=== PATIENT | female | born 1980 | race Caucasian/White ===

== ENCOUNTER 2016-11-07 22:23 | Observation (INO) | payer OTHER ==
[2016-11-07] MEDS ORDERED: RX INFO: IV CONTRAST WAS GIVEN 1 EACH MISC MISCELLANE PRN (22:27)
[2016-11-07] MEDS ORDERED: SODIUM CHLORIDE 0.9% 1,000 ML IV STA (22:27)
[2016-11-07] MEDS ORDERED: DEXAMETHASONE SOD PHOSPHATE 10 MG/ML 1 ML VIAL IV STA (22:31)
[2016-11-07] MEDS ORDERED: METOCLOPRAMIDE 5 MG/ML 2 ML VIAL IVP STA (22:31)
[2016-11-07] MEDS ORDERED: MAGNESIUM SULFATE-D5W PMX 1 GM in DEXTROSE/WATER 1 100ML.BAG IVPB ONE (22:32)
[2016-11-07 22:43] LABS: Glucose,Whole Blood 86 mg/dL (75-99)
--- NOTE | 2016-11-07 22:46 | CT ---
EXAM: CT Head Without Intravenous Contrast CLINICAL HISTORY: Reason: STROKE TECHNIQUE: Axial computed tomography images of the head/brain without intravenous contrast. CTDI is 60.3 mGy and DLP is 1037.4 mGy-cm. This CT exam was performed using one or more of the following dose reduction techniques: automated exposure control, adjustment of the mA and/or kV according to patient size, and/or use of iterative reconstruction technique. COMPARISON: No relevant prior studies available. FINDINGS: Brain: Stable 10 mm focus of hypoattenuation in the left parietal lobe. Ventricles: Unremarkable. No ventriculomegaly. Bones/joints: Unremarkable. No acute fracture. Soft tissues: Unremarkable. Sinuses: Unremarkable as visualized. No acute sinusitis. Mastoid air cells: Unremarkable. IMPRESSION: No acute intracranial abnormality.
--- NOTE | 2016-11-07 22:57 | ED ---
Neuro HPI - General Chief Complaint: Neuro Symptoms/Deficit Stated Complaint: Stroke Time Seen by Provider: 11/07/16 22:27 Source: patient, EMS Mode of arrival: EMS Limitations: no limitations - History of Present Illness Is the patient presenting with stroke symptoms?: Yes Initial Comments: This 36-year-old white female presents with right-sided weakness. She has complete paralysis of her right upper extremity and almost complete paralysis of her right lower extremity. This occurred at approximately 8:30 PM tonight. She also states that she has had a headache all day. She does have a history of migraine headaches but states that this one is more severe than her previous migraines. It is worse in the frontal region and seems to radiate into the right anterior neck. She also has a history of atypical migraine headaches with right-sided paralysis. She has a history of seizures as well but denies any seizures today. She denies any fevers or chills. She is relating difficulty in getting her words out and has a slow speech. No other complaints or modifying factors. - Related Data Home Medications: Home Medications Medication Instructions Recorded Confirmed levETIRAcetam [Keppra] 1,000 mg PO Q12H 02/10/15 03/01/16 Butalb/APAP/Caff 50-325-40Mg 1 tab PO TID PRN 01/17/16 03/01/16 [Fioricet 50-325-40] diphenhydrAMINE HCL [Benadryl] 25 mg PO HS PRN 01/17/16 03/01/16 Baclofen [Lioresal] 20 mg PO BID 03/01/16 03/01/16 Dicyclomine [Bentyl] 20 mg PO TID PRN 03/01/16 03/01/16 Divalproex [Depakote] 500 mg PO BID 03/01/16 03/01/16 Docusate [Colace] 100 mg PO DAILY PRN 03/01/16 03/01/16 Ergocalciferol [Vitamin D2] 50,000 unit PO Q7D 03/01/16 03/01/16 Hyoscyamine Sulfate [Levsin] 0.125 mg PO Q4H PRN 03/01/16 03/01/16 LORazepam [Ativan] 1 mg PO DAILY PRN 03/01/16 03/01/16 Nortriptyline HCl [Pamelor] 10 mg PO HS 03/01/16 03/01/16 clonazePAM [KlonoPIN] 1 mg PO BID 03/01/16 03/01/16 Allergies/Adverse Reactions: Allergies Allergy/AdvReac Type Severity Reaction Status Date / Time Gadolinium-Containing Allergy Unknown Verified 11/07/16 22:48 Contrast Medi latex Allergy Unknown Verified 11/07/16 22:41 prochlorperazine Allergy Unknown Verified 11/07/16 22:41 [From Compazine] aspirin AdvReac Unknown Verified 11/07/16 22:41 naproxen AdvReac Unknown Verified 11/07/16 22:41 Review of Systems ROS Statement: Those systems with pertinent positive or pertinent negative responses have been documented in the HPI. ROS Other: All systems not noted in ROS Statement are negative. General Exam - General Exam Comments Initial Comments: GENERAL: The patient is well nourished and well hydrated. VITAL SIGNS: Heart rate, blood pressure, respiratory rate reviewed as recorded in nurse's notes. EYES: Pupils are round and reactive. Extraocular movements are intact. No conjunctival / lid redness or swelling. There is some ptosis on the right eye. ENT: No external evidence of injury, swelling, or ecchymosis. Airway is patent. Throat is clear. NECK: Nontender. No swelling or evidence of injury. No subcutaneous emphysema. Trachea is midline. No thyroid mass. HEART: Regular rate and rhythm. Good peripheral pulses. LUNGS/CHEST: Breath sounds clear and equal bilaterally. No rales, rhonchi, or wheezes. No ecchymosis, subcutaneous emphysema, or tenderness. ABDOMEN: Abdomen soft without tenderness. No palpable masses or organomegaly. No peritoneal signs. No abdominal wall swelling or ecchymosis. EXTREMITIES: No extremity tenderness. She is in a right leg brace from previous dropped foot and subsequent surgeries. No thoracolumbar tenderness. NEUROLOGIC: Sensation is decreased on the right side for both the upper extremity and lower extremity. She has complete paralysis of her right upper extremity and almost complete paralysis of her throat for her right lower extremity. Her strength is intact on the left side. Speech seems very labored and slow. She may have a slight right facial droop. SKIN: No abrasions or ecchymosis is noted. No induration or masses noted. PSYCHIATRIC: Alert and oriented. Appears anxious initially. Limitations: no limitations Stroke [facility] - Lab Data Result diagrams: 11/07/16 22:45 11/07/16 22:45 Lab Results 11/07/16 11/07/16 11/07/16 Range/Units 22:42 22:45 22:45 WBC 7.2 (3.8-10.6) k/uL RBC 4.12 (3.80-5.40) m/uL Hgb 13.1 (11.4-16.0) gm/dL Hct 39.2 (34.0-46.0) % MCV 95.2 (80.0-100.0) fL MCH 31.7 (25.0-35.0) pg MCHC 33.3 (31.0-37.0) g/dL RDW 13.5 (11.5-15.5) % Plt Count 271 (150-450) k/uL Neutrophils % 62 % Lymphocytes % 28 % Monocytes % 6 % Eosinophils % 2 % Basophils % 1 % Neutrophils # 4.5 (1.3-7.7) k/uL Lymphocytes # 2.0 (1.0-4.8) k/uL Monocytes # 0.4 (0-1.0) k/uL Eosinophils # 0.1 (0-0.7) k/uL Basophils # 0.1 (0-0.2) k/uL PT (9.0-12.0) sec INR (<1.2) APTT (22.0-30.0) sec Sodium (137-145) mmol/L Potassium (3.5-5.1) mmol/L Chloride (98-107) mmol/L Carbon Dioxide (22-30) mmol/L Anion Gap mmol/L BUN (7-17) mg/dL Creatinine (0.52-1.04) mg/dL Est GFR (MDRD) Af Amer (>60 ml/min/1.73 sqM) Est GFR (MDRD) Non-Af (>60 ml/min/1.73 sqM) Glucose (74-99) mg/dL POC Glucose (mg/dL) 86 (75-99) mg/dL POC Glu Post Manager ID Dunsmore, Debby Calcium (8.4-10.2) mg/dL Total Bilirubin (0.2-1.3) mg/dL AST (14-36) U/L ALT (9-52) U/L Alkaline Phosphatase (38-126) U/L Total Creatine Kinase 100 (30-135) U/L CK-MB (CK-2) 0.5 (0.0-2.4) ng/mL CK-MB (CK-2) Rel Index 0.5 Troponin I <0.012 (0.000-0.034) ng/mL Total Protein (6.3-8.2) g/dL Albumin (3.5-5.0) g/dL Valproic Acid ug/mL 11/07/16 11/07/16 Range/Units 22:45 22:45 WBC (3.8-10.6) k/uL RBC (3.80-5.40) m/uL Hgb (11.4-16.0) gm/dL Hct (34.0-46.0) % MCV (80.0-100.0) fL MCH (25.0-35.0) pg MCHC (31.0-37.0) g/dL RDW (11.5-15.5) % Plt Count (150-450) k/uL Neutrophils % % Lymphocytes % % Monocytes % % Eosinophils % % Basophils % % Neutrophils # (1.3-7.7) k/uL Lymphocytes # (1.0-4.8) k/uL Monocytes # (0-1.0) k/uL Eosinophils # (0-0.7) k/uL Basophils # (0-0.2) k/uL PT 10.4 (9.0-12.0) sec INR 1.0 (<1.2) APTT 22.7 (22.0-30.0) sec Sodium 141 (137-145) mmol/L Potassium 4.0 (3.5-5.1) mmol/L Chloride 107 (98-107) mmol/L Carbon Dioxide 25 (22-30) mmol/L Anion Gap 9 mmol/L BUN 7 (7-17) mg/dL Creatinine 0.70 (0.52-1.04) mg/dL Est GFR (MDRD) Af Amer >60 (>60 ml/min/1.73 sqM) Est GFR (MDRD) Non-Af >60 (>60 ml/min/1.73 sqM) Glucose 75 (74-99) mg/dL POC Glucose (mg/dL) (75-99) mg/dL POC Glu Post Manager ID Calcium 9.2 (8.4-10.2) mg/dL Total Bilirubin 0.2 (0.2-1.3) mg/dL AST 22 (14-36) U/L ALT 36 (9-52) U/L Alkaline Phosphatase 76 (38-126) U/L Total Creatine Kinase (30-135) U/L CK-MB (CK-2) (0.0-2.4) ng/mL CK-MB (CK-2) Rel Index Troponin I (0.000-0.034) ng/mL Total Protein 5.9 L (6.3-8.2) g/dL Albumin 3.6 (3.5-5.0) g/dL Valproic Acid 18.9 ug/mL - Medical Decision Making The patient was seen and examined. All diagnostics were reviewed. The EKG shows a sinus bradycardia at a rate of 58. There is no acute ST-T wave changes identified. The ME interval is 120, QRS duration is 84, and the QTc interval is 394. The patient immediately went to CT. She had a CT of the brain without contrast as well as a CT angiogram of the head and neck. This was negative for any acute process per radiology. The laboratory was fairly unremarkable except for a subtherapeutic Depakote level. She did receive IV fluids as well as some Decadron, magnesium, and Reglan. She is sleeping on recheck and is in no significant distress. On reexamination she does have good movement of her right leg and significantly increased movement of her right arm and hand. She is still having some ptosis of the right eye. Her speech seems to have improved a fair amount as well. The case is discussed with the interventional neurologist Dr. Cai shortly after patient arrival and again after the CTs are done. He does not recommend any intervention or TPA at this time and recommends medical management. Old records were reviewed and it appears that she has had an atypical migraine before with similar symptoms. She's been hospitalized for this on a couple of occasions. It is felt as though she would benefit from hospitalization once again as her paralysis has not completely resolved. She is agreeable. Case will be discussed with internal medicine and patient will be admitted for further treatment. Past Medical History Past Medical History: Blood Disorder, CVA/TIA, Seizure Disorder Additional Past Medical History / Comment(s): migraines, IBS, IBD History of Any Multi-Drug Resistant Organisms: MRSA Date of last positivie culture/infection: 2005 MDRO Source:: leg Past Surgical History: Adenoidectomy, Hysterectomy Additional Past Surgical History / Comment(s): several abd sx(exp lap-cyst removed from ovaries, kidney , from intestinal wall. OCCIPITAL NERVE BLOCK, RT KNEE MENISCUS REPAIR AND CARTILAGE REMOVED Past Anesthesia/Blood Transfusion Reactions: Postoperative Nausea & Vomiting ( PONV) Past Psychological History: Anxiety, PTSD Smoking Status: Unknown if ever smoked Past Alcohol Use History: Rare Past Drug Use History: None Reported - Past Family History Father Additional Family Medical History / Comment(s): LUPUS, FATHERS MOM, AUNT HAD LUPUS Mother Family Medical History: Osteoarthritis (OA), Thyroid Disorder Additional Family Medical History / Comment(s): GOITER, BOARDERLINE DIABETIC, KIDNEY STONE,GALLSTONES Course Vital Signs 11/07/16 11/07/16 11/07/16 22:38 22:57 23:11 Temperature 98.4 F Pulse Rate 68 66 72 Respiratory 24 24 20 Rate Blood Pressure 125/81 118/75 118/79 O2 Sat by Pulse 99 96 95 Oximetry 11/07/16 23:39 Temperature Pulse Rate 69 Respiratory 20 Rate Blood Pressure 111/70 O2 Sat by Pulse 96 Oximetry Disposition Clinical Impression: Right sided weakness, Headache, Atypical migraine, Hemiplegic migraine, History of stroke Disposition: ADMITTED IP TO THIS [facility] Condition: Fair Time of Disposition: 00:24 Decision Date: 11/08/16 Decision Time: 00:24
[2016-11-07 22:59] LABS: Basophils # (A) 0.1 k/uL (0-0.2); Basophils % (A) 1 %; CH 31.9; CHCM 33.7; Eosinophils # (A) 0.1 k/uL (0-0.7); Eosinophils % (A) 2 %; HCT 39.2 % (34.0-46.0); HDW 2.11; HGB 13.1 gm/dL (11.4-16.0); Luc # (Auto) 0.15; Luc % (Auto) 2; Lymphocytes % (A) 28 %; MCH 31.7 pg (25.0-35.0); MCHC 33.3 g/dL (31.0-37.0); MCV 95.2 fL (80.0-100.0); Monocytes # (A) 0.4 k/uL (0-1.0); Monocytes % (A) 6 %; Neutrophils # (A) 4.5 k/uL (1.3-7.7); Neutrophils % (A) 62 %; RBC 4.12 m/uL (3.80-5.40); RDW 13.5 % (11.5-15.5); WBC 7.2 k/uL (3.8-10.6); WBC (Perox) 7.05
--- NOTE | 2016-11-07 23:01 | CT ---
EXAM: CT Angiography Head With Intravenous Contrast CLINICAL HISTORY: Reason: Neuro Deficits TECHNIQUE: Axial computed tomographic angiography images of the head with intravenous contrast using CT angiography protocol. CTDI is 6.5, 72.3, 4. 8 mGy and DLP is 199.2 mGy-cm. This CT exam was performed using one or more of the following dose reduction techniques: automated exposure control, adjustment of the mA and/or kV according to patient size, and/or use of iterative reconstruction technique. MIP reconstructed images were created and reviewed. COMPARISON: No relevant prior studies available. FINDINGS: Right internal carotid artery: No acute findings. Right anterior cerebral artery: Unremarkable. No occlusion or significant stenosis. No aneurysm. Right middle cerebral artery: Unremarkable. No occlusion or significant stenosis. No aneurysm. Right posterior cerebral artery: Unremarkable. No occlusion or significant stenosis. No aneurysm. Right vertebral artery: Unremarkable as visualized. Left internal carotid artery: No acute findings. Left anterior cerebral artery: Unremarkable. No occlusion or significant stenosis. No aneurysm. Left middle cerebral artery: Unremarkable. No occlusion or significant stenosis. No aneurysm. Left posterior cerebral artery: Unremarkable. No occlusion or significant stenosis. No aneurysm. Left vertebral artery: Unremarkable as visualized. Basilar artery: Unremarkable. No occlusion or significant stenosis. No aneurysm. IMPRESSION: Unremarkable CTA of the head. EXAM: CT Angiography Neck With Intravenous Contrast CLINICAL HISTORY: Reason: Neuro Deficits TECHNIQUE: Axial computed tomographic angiography images of the neck with intravenous contrast using CT angiography protocol. CTDI is 6.5, 72.3, 4. 8 mGy and DLP is 199.2 mGy-cm. This CT exam was performed using one or more of the following dose reduction techniques: automated exposure control, adjustment of the mA and/or kV according to patient size, and/or use of iterative reconstruction technique. MIP reconstructed images were created and reviewed. COMPARISON: No relevant prior studies available. FINDINGS: Artifacts: Inhomogeneous enhancement of the superior vena cava is favored to represent admixture artifact. VASCULATURE: Right common carotid artery: Unremarkable. No significant stenosis. No dissection or occlusion. Right internal carotid artery: Unremarkable. Extracranial segment is patent with no significant stenosis. No dissection or occlusion. Right external carotid artery: Unremarkable. No occlusion. Right vertebral artery: Unremarkable. No significant stenosis. No dissection or occlusion. Left common carotid artery: Unremarkable. No significant stenosis. No dissection or occlusion. Left internal carotid artery: Unremarkable. Extracranial segment is patent with no significant stenosis. No dissection or occlusion. Left external carotid artery: Unremarkable. No occlusion. Left vertebral artery: Unremarkable. No significant stenosis. No dissection or occlusion. NECK: Bones/joints: No acute fracture. Soft tissues: Unremarkable as visualized. No mass. CAROTID STENOSIS REFERENCE USING NASCET CRITERIA: % ICA stenosis = (1 - narrowest ICA diameter/diameter of distal cervical ICA) x 100. Mild - <50% stenosis. Moderate - 50-69% stenosis. Severe - 70-94% stenosis. Near occlusion - 95-99% stenosis. Occluded - 100% stenosis. IMPRESSION: Unremarkable CTA of the neck.
[2016-11-07 23:08] LABS: ALT 36 U/L (9-52); AST 22 U/L (14-36); Alkaline Phosphatase 76 U/L (38-126); Anion Gap 9 mmol/L; Blood Urea Nitrogen 7 mg/dL (7-17); Calcium 9.2 mg/dL (8.4-10.2); Carbon Dioxide 25 mmol/L (22-30); Chloride 107 mmol/L (98-107); Glucose 75 mg/dL (74-99); Non-African American GFR(MDRD) >60 (>60 ml/min/1.73 sqM); Sodium 141 mmol/L (137-145); Total Bilirubin 0.2 mg/dL (0.2-1.3); Total Protein 5.9 g/dL (6.3-8.2)
[2016-11-07 23:09] LABS: Partial Thromboplastin Time 22.7 sec (22.0-30.0); Prothrombin Time 10.4 sec (9.0-12.0)
[2016-11-07 23:17] LABS: Creatine Kinase 100 U/L (30-135)
--- NOTE | 2016-11-07 23:27 | XR ---
EXAM: XR Chest, 1 View CLINICAL HISTORY: Reason: weakness TECHNIQUE: Frontal view of the chest. COMPARISON: 01/21/2016 FINDINGS: Lungs: Unremarkable. No consolidation. Pleural space: Unremarkable. No pneumothorax. Heart: Unremarkable. No cardiomegaly. Mediastinum: Unremarkable. Bones/joints: No acute osseous abnormality. IMPRESSION: No acute cardiopulmonary process.
[2016-11-07 23:30] LABS: Creatine Kinase MB 0.5 ng/mL (0.0-2.4); Troponin I <0.012 ng/mL (0.000-0.034)
[2016-11-07] MEDS ORDERED: DIVALPROEX ER 500 MG TAB.ER.24H PO STA (23:57)
[2016-11-08] MEDS ORDERED: NALOXONE 0.4 MG/ML 1 ML VIAL IV PRN (00:25)
[2016-11-08] MEDS ORDERED: ACETAMINOPHEN TAB 325 MG TAB PO PRN (00:25)
[2016-11-08] MEDS ORDERED: SUMAtriptan SUCCINATE 6 MG/0.5 ML VIAL SQ PRN (00:29)
[2016-11-08] MEDS ORDERED: SUMAtriptan SUCCINATE 6 MG/0.5 ML VIAL SQ STA ×2 (00:31)
[2016-11-08] MEDS ORDERED: DICYCLOMINE 20 MG TAB PO PRN (01:10)
[2016-11-08] MEDS ORDERED: levETIRAcetam 500 MG TAB PO SCH (01:15)
[2016-11-08] MEDS: BUTALB/APAP/CAFF 50-325-40MG TAB PO PRN ×2 (01:58→12:03)
[2016-11-08 02:21] VITALS: BMI 20.5
[2016-11-08] MEDS: clonazePAM 1 MG TAB PO SCH ×3 (03:40→21:28)
[2016-11-08] MEDS: HYDROmorphone 1 MG/ML 1 ML SYRINGE IVP PRN ×5 (03:40→20:46)
[2016-11-08] MEDS: METOCLOPRAMIDE 5 MG/ML 2 ML VIAL IVP PRN ×3 (04:21→18:15)
[2016-11-08] MEDS: diphenhydrAMINE 25 MG CAP PO PRN ×2 (04:34→22:38)
[2016-11-08] MEDS: levETIRAcetam 500 MG TAB PO SCH ×2 (08:36→21:29)
[2016-11-08] MEDS: BACLOFEN 10 MG TAB PO SCH ×2 (08:36→21:27)
[2016-11-08] MEDS ORDERED: DIVALPROEX 500 MG TABLET.DR PO SCH (09:00)
[2016-11-08] MEDS ORDERED: clonazePAM 1 MG TAB PO SCH (09:00)
[2016-11-08] MEDS: PANTOPRAZOLE 40 MG/10 ML VIAL IV SCH (12:03)
[2016-11-08] MEDS: ENOXAPARIN 40 MG/0.4 ML SYRINGE SQ SCH (12:05)
--- NOTE | 2016-11-08 17:45 | P.HPIM ---
History of Present Illness H&P Date: 11/08/16 Patient is a 36-year-old white female who presented with right-sided weakness. She had complete paralysis of her right upper extremity and almost complete paralysis of her right lower extremity on presentation to emergency room. This occurred at approximately 8:30 PM last night. She also states that she has had a headache all day. She does have a history of migraine headaches but states that this one is more severe than her previous migraines. It is worse in the frontal region and seems to radiate into the right anterior neck. She also has a history of atypical migraine headaches with right-sided paralysis. She has a history of seizures as well but denies any seizures today. She denies any fevers or chills. She is relating difficulty in getting her words out and has a slow speech. No other complaints or modifying factors. In the emergency room patient was given Imitrex however she states that she had a reaction to the and it caused her to have itching and tingling in her skin she does not want to take Imitrex anymore. She was also started on Dilauded 0.5 mg IV every 3 hours when necessary and she stated that this is helping her headache. She was also continued on Fioricet but she stated that that is hardly doing anything for her headache. At this time her right sided weakness has improved significantly she is still complaining of severe headache. Past Medical History Past Medical History: Blood Disorder, CVA/TIA, Seizure Disorder Additional Past Medical History / Comment(s): migraines, IBS, IBD History of Any Multi-Drug Resistant Organisms: MRSA Date of last positivie culture/infection: 2005 MDRO Source:: leg Past Surgical History: Adenoidectomy, Hysterectomy Additional Past Surgical History / Comment(s): several abd sx(exp lap-cyst removed from ovaries, kidney , from intestinal wall. OCCIPITAL NERVE BLOCK, RT KNEE MENISCUS REPAIR AND CARTILAGE REMOVED Past Anesthesia/Blood Transfusion Reactions: Postoperative Nausea & Vomiting ( PONV) Past Psychological History: Anxiety, PTSD Smoking Status: Unknown if ever smoked Past Alcohol Use History: Rare Past Drug Use History: None Reported - Past Family History Father Additional Family Medical History / Comment(s): LUPUS, FATHERS MOM, AUNT HAD LUPUS Mother Family Medical History: Osteoarthritis (OA), Thyroid Disorder Additional Family Medical History / Comment(s): GOITER, BOARDERLINE DIABETIC, KIDNEY STONE,GALLSTONES Medications and Allergies Home Medications Medication Instructions Recorded Confirmed Type levETIRAcetam [Keppra] 1,000 mg PO Q12H 02/10/15 11/08/16 History Butalb/APAP/Caff 50-325-40Mg 1 tab PO TID PRN 01/17/16 11/08/16 History [Fioricet 50-325-40] diphenhydrAMINE HCL [Benadryl] 25 mg PO HS PRN 01/17/16 11/08/16 History Baclofen [Lioresal] 20 mg PO BID 03/01/16 11/08/16 History Dicyclomine [Bentyl] 20 mg PO TID PRN 03/01/16 11/08/16 History Divalproex [Depakote] 500 mg PO BID 03/01/16 11/08/16 History Ergocalciferol [Vitamin D2] 50,000 unit PO Q7D 03/01/16 11/08/16 History clonazePAM [KlonoPIN] 1 mg PO BID 03/01/16 11/08/16 History Docusate [Colace] 100 mg PO DAILY PRN 11/08/16 11/08/16 History Allergies Allergy/AdvReac Type Severity Reaction Status Date / Time Gadolinium-Containing Allergy Unknown Verified 11/07/16 22:48 Contrast Medi latex Allergy Unknown Verified 11/07/16 22:41 prochlorperazine Allergy Unknown Verified 11/07/16 22:41 [From Compazine] aspirin AdvReac Unknown Verified 11/07/16 22:41 naproxen AdvReac Unknown Verified 11/07/16 22:41 Physical Exam Vitals: Vital Signs Temp Pulse Pulse Resp BP BP Pulse Ox 11/08/16 14:48 98.6 F 74 16 105/59 96 11/08/16 08:50 106/71 11/08/16 06:55 97.9 F 69 16 97/53 98 11/08/16 01:50 97.5 F L 98 16 116/81 11/08/16 00:26 71 16 101/60 97 11/07/16 23:39 69 20 111/70 96 11/07/16 23:11 72 20 118/79 95 11/07/16 22:57 66 24 118/75 96 11/07/16 22:38 98.4 F 68 24 125/81 99 Intake and Output 11/08/16 11/08/16 11/08/16 06:59 14:59 22:59 Intake Total 480 Balance 480 Intake: Oral 480 Other: # Voids 2 1 Weight 54.431 kg In general patient is alert and oriented 3 in no apparent distress HEENT head normocephalic and atraumatic Neck is supple no JVD no goiter no lymphadenopathy Chest exam reveals a few scattered rhonchi no wheezing Cardiac exam reveals regular heart sounds no gallops no murmurs Abdomen is soft nontender no organomegaly with normal bowel sounds Extremity exam reveals no edema no cyanosis or clubbing there is a brace on the right lower extremity from previous foot drop Neurological examination reveals minimal facial drooping on the right side at this time with the weakness involving the right upper extremity and right lower extremity 4 out of 5 as compared to the left Results CBC & Chem 7: 11/07/16 22:45 11/07/16 22:45 Labs: Abnormal Lab Results - Last 24 Hours (Table) 11/07/16 Range/Units 22:45 Total Protein 5.9 L (6.3-8.2) g/dL Thrombosis Risk Factor Assmnt - Choose All That Apply Other Risk Factors: Yes Each Risk Factor Represents 3 Points: Positive Factor V Leiden Thrombosis Risk Factor Assessment Total Risk Factor Score: 3 Thrombosis Risk Factor Assessment Level: Moderate Risk Assessment and Plan Plan: #1 severe migraine headache, continue was dialogue and and Fioricet consult neurology #2 right sided weakness improving likely related to migraine headache, test done in the emergency room were reviewed awaiting neurology input #3 episodes of palpitation and dizziness at this time will proceed was telemetry will check echocardiogram and consult cardiology #4 tobacco abuse patient was counseled to quit smoking at this time she will have nicotine patch 14 g change daily #5 underlying history of anxiety and posttraumatic stress disorder maintained on Klonopin continue Medication and labs were reviewed plan as above will recheck in a.m.
[2016-11-08] MEDS: NICOTINE 14MG/24HR PATCH TRANSDERM SCH (18:14)
[2016-11-08] MEDS ORDERED: MAGNESIUM SULFATE-D5W PMX 1 GM in DEXTROSE/WATER 1 100ML.BAG IVPB ONE (21:00)
[2016-11-08] MEDS: LACOSAMIDE 50 MG TABLET PO SCH (21:27)
[2016-11-08] MEDS: METOCLOPRAMIDE 5 MG/ML 2 ML VIAL IVP SCH (22:29)
[2016-11-09] MEDS: clonazePAM 1 MG TAB PO SCH ×4 (00:13→21:42)
[2016-11-09] MEDS: VALPROATE SODIUM 250 MG in SODIUM CHLORIDE 0.9% 50 ML IVPB SCH ×3 (01:02→16:50)
[2016-11-09] MEDS: METOCLOPRAMIDE 5 MG/ML 2 ML VIAL IVP SCH ×4 (05:05→22:20)
[2016-11-09] MEDS: HYDROmorphone 1 MG/ML 1 ML SYRINGE IVP PRN ×5 (05:12→19:57)
[2016-11-09 07:14] LABS: Basophils % (A) 0 %; CH 30.4; CHCM 32.2; Eosinophils % (A) 0 %; HCT 38.9 % (34.0-46.0); HDW 2.11; HGB 13.1 gm/dL (11.4-16.0); Luc # (Auto) 0.04; Luc % (Auto) 1; Lymphocytes # (A) 0.7 k/uL (1.0-4.8); Lymphocytes % (A) 11 %; MCH 31.8 pg (25.0-35.0); MCHC 33.5 g/dL (31.0-37.0); MCV 94.8 fL (80.0-100.0); Mean Platelet Volume 8.5; Monocytes # (A) 0.1 k/uL (0-1.0); Monocytes % (A) 1 %; Neutrophils # (A) 5.9 k/uL (1.3-7.7); Neutrophils % (A) 87 %; RBC 4.11 m/uL (3.80-5.40); RDW 12.7 % (11.5-15.5); WBC 6.8 k/uL (3.8-10.6); WBC (Perox) 7.39
[2016-11-09 07:35] LABS: ALT 32 U/L (9-52); AST 22 U/L (14-36); Alkaline Phosphatase 64 U/L (38-126); Anion Gap 12 mmol/L; Blood Urea Nitrogen 4 mg/dL (7-17); Calcium 8.9 mg/dL (8.4-10.2); Carbon Dioxide 21 mmol/L (22-30); Chloride 110 mmol/L (98-107); Glucose 116 mg/dL (74-99); Non-African American GFR(MDRD) >60 (>60 ml/min/1.73 sqM); Potassium 4.3 mmol/L (3.5-5.1); Sodium 143 mmol/L (137-145); Total Bilirubin 0.2 mg/dL (0.2-1.3); Total Protein 5.8 g/dL (6.3-8.2)
[2016-11-09] MEDS: PANTOPRAZOLE 40 MG/10 ML VIAL IV SCH (08:43)
[2016-11-09] MEDS: ENOXAPARIN 40 MG/0.4 ML SYRINGE SQ SCH (08:43)
[2016-11-09] MEDS: LACOSAMIDE 50 MG TABLET PO SCH ×2 (08:49→20:19)
[2016-11-09] MEDS: levETIRAcetam 500 MG TAB PO SCH ×2 (08:49→20:16)
[2016-11-09] MEDS: BACLOFEN 10 MG TAB PO SCH ×2 (08:49→20:15)
[2016-11-09] MEDS: NICOTINE 14MG/24HR PATCH TRANSDERM SCH (09:56)
[2016-11-09] MEDS: BUTALB/APAP/CAFF 50-325-40MG TAB PO PRN ×2 (10:01→21:50)
--- NOTE | 2016-11-09 10:28 | ECHOF ---
Referral Reason:palpitations, dizzy MEASUREMENTS -------- HEIGHT: 162.6 cm WEIGHT: 54.0 kg BP: 108/74 RVIDd: 2.2 cm (< 3.3) IVSd: 0.8 cm (0.6 - 1.1) LVIDd: 3.9 cm (3.9 - 5.3) LVPWd: 0.8 cm (0.6 - 1.1) IVSs: 1.1 cm LVIDs: 2.6 cm LVPWs: 1.4 cm LA Diam: 2.5 cm (2.7 - 3.8) LAESV Index (A-L): 18.02 ml/m Ao Diam: 3.1 cm (2.0 - 3.7) AV Cusp: 2.4 cm (1.5 - 2.6) MV EXCURSION: 17.440 mm (> 18.000) MV EF SLOPE: 121 mm/s (70 - 150) EPSS: 0.3 cm MV E Jasper: 0.95 m/s MV DecT: 195 ms MV A Jasper: 0.58 m/s MV E/A Ratio: 1.64 RAP: 5.00 mmHg RVSP: 12.99 mmHg FINDINGS -------- Sinus rhythm. This was a technically good study. The left ventricular size is normal. Left ventricular wall thickness is normal. Overall left ventricular systolic function is normal with, an EF between 60 - 65 %. The right ventricle is normal in size. Normal LA size by volume 22+/-6 ml/m2. The right atrium is normal in size. The aortic valve is trileaflet and appears structurally normal. The mitral valve is normal. Trace tricuspid regurgitation present. Right ventricular systolic pressure is normal at < 35 mmHg. Trace/mild (physiologic) pulmonic regurgitation. The aortic root size is normal. The inferior vena cava is mildly dilated. There is no pericardial effusion. CONCLUSIONS -------- 1. Sinus rhythm. 2. The mitral valve is normal. 3. Trace tricuspid regurgitation present. 4. Right ventricular systolic pressure is normal at < 35 mmHg. 5. Trace/mild (physiologic) pulmonic regurgitation. 6. The aortic root size is normal. 7. The inferior vena cava is mildly dilated. 8. There is no pericardial effusion. 9. This was a technically good study. 10. The left ventricular size is normal. 11. Left ventricular wall thickness is normal. 12. Overall left ventricular systolic function is normal with, an EF between 60 - 65 %. 13. The right ventricle is normal in size. 14. Normal LA size by volume 22+/-6 ml/m2. 15. The right atrium is normal in size. 16. The aortic valve is trileaflet and appears structurally normal. FARM INSTRUCTOR: Jennifer Lamb RDCS
--- NOTE | 2016-11-09 11:17 | P.PN ---
Subjective Patient is a 36-year-old white female who presented with right-sided weakness. She had complete paralysis of her right upper extremity and almost complete paralysis of her right lower extremity on presentation to emergency room. This occurred at approximately 8:30 PM last night. She also states that she has had a headache all day. She does have a history of migraine headaches but states that this one is more severe than her previous migraines. It is worse in the frontal region and seems to radiate into the right anterior neck. She also has a history of atypical migraine headaches with right-sided paralysis. She has a history of seizures as well but denies any seizures today. She denies any fevers or chills. She is relating difficulty in getting her words out and has a slow speech. No other complaints or modifying factors. In the emergency room patient was given Imitrex however she states that she had a reaction to the and it caused her to have itching and tingling in her skin she does not want to take Imitrex anymore. She was also started on Dilauded 0.5 mg IV every 3 hours when necessary and she stated that this is helping her headache. She was also continued on Fioricet but she stated that that is hardly doing anything for her headache. At this time her right sided weakness has improved significantly she is still complaining of severe headache. 11/09/2016 patient still complaining of headaches. She has not had much improvement with the Fioricet. She has been using the Dilaudid gives her about an edge off the pain. She still having weakness on the right side. Neurology did add IV steroids. Echo shows an EF of 60-65%. Awaiting cardiology consult in regards to her palpitations. She does report having difficulty ambulating to the bathroom. Objective - Vital Signs Vital signs: Vital Signs Temp 98.3 F 11/09/16 07:00 Pulse 81 11/09/16 07:00 Resp 10 L 11/09/16 07:00 BP 125/85 11/09/16 10:21 Pulse Ox 100 11/09/16 07:00 Intake & Output 11/08/16 11/09/16 11/09/16 18:59 06:59 18:59 Intake Total 650 Output Total 900 Balance -250 Intake: Oral 650 Output: Urine 900 Other: Voiding Method Bedside Commode # Voids 1 2 - Exam Head normocephalic Neck supple Lungs clear to auscultation bilaterally no wheezing or crackles Heart regular rate and rhythm S1-S2, no rub or gallop Abdomen is soft nontender nondistended positive bowel sounds no hepatosplenomegaly Extremities no edema Neuro alert and orientated to 3. Patient is sleepy. Arousable and able to answer questions. No evidence of distress. She has evidence of right-sided weakness in both her hand home care provider and lower extremity strength - Labs CBC & Chem 7: 11/09/16 06:50 11/09/16 06:50 Labs: Abnormal Lab Results - Last 24 Hours (Table) 11/09/16 11/09/16 Range/Units 06:50 06:50 Lymphocytes # 0.7 L (1.0-4.8) k/uL Chloride 110 H (98-107) mmol/L Carbon Dioxide 21 L (22-30) mmol/L BUN 4 L (7-17) mg/dL Glucose 116 H (74-99) mg/dL Total Protein 5.8 L (6.3-8.2) g/dL Assessment and Plan Plan: #1 severe migraine headache, continue was Dilaudid when necessary and and Fioricet. Patient reports the Fioricet is not working. consult neurology #2 right sided weakness: Possibly related to her migraine headache. Neurology has added IV steroids. They've ordered an MRI of the brain and EEG of the brain. Computed tomography scan of the brain negative CTA of the neck negative Echo shows an EF of 60-65%. #3 episodes of palpitation and dizziness at this time will proceed was telemetry. Echo shows EF of 60-65%. Cardiology consult pending. #4 tobacco abuse patient was counseled to quit smoking at this time she will have nicotine patch 14 g change daily #5 underlying history of anxiety and posttraumatic stress disorder maintained on Klonopin continue Medication and labs were reviewed plan as above will recheck in a.m. I performed an examination of the patient and discussed their management with the physician Cut Off Machine Helper. I have reviewed the Physician Cut Off Machine Helper's notes and agree with the documented findings and plan of care
--- NOTE | 2016-11-09 12:12 | P.CRDCN ---
History of Present Illness Consult date: 11/09/16 History of present illness: This is a 35-year-old female with history of hypertension, diabetes and previous history of smoking and also stroke who was admitted to the hospital with severe migraine headaches. She was also having some feeling of dizziness and passing out when she stood up. Patient has chronic recurrent chest pains. Patient had a stress test, the last one being in January of this year which was negative for ischemia. EKG did not reveal any acute changes. Cardiac enzymes are negative so far. Her blood pressure has been running low at times. Her chest pains appear to be atypical and has investigation done twice which was negative. No further investigation is sized to for chest pains. As far as dizziness and passing out, we should check her blood pressure for any postural changes. If possible changes and documented. Patient should be given extra salt and fluid and may consider knee-high stockings. Patient is also being seen by neurology for evaluation of her migrainous headaches. Review of Systems As per the chart Past Medical History Past Medical History: Blood Disorder, CVA/TIA, Seizure Disorder Additional Past Medical History / Comment(s): migraines, IBS, IBD History of Any Multi-Drug Resistant Organisms: MRSA Date of last positivie culture/infection: 2005 MDRO Source:: leg Past Surgical History: Adenoidectomy, Hysterectomy Additional Past Surgical History / Comment(s): several abd sx(exp lap-cyst removed from ovaries, kidney , from intestinal wall. OCCIPITAL NERVE BLOCK, RT KNEE MENISCUS REPAIR AND CARTILAGE REMOVED Past Anesthesia/Blood Transfusion Reactions: Postoperative Nausea & Vomiting ( PONV) Past Psychological History: Anxiety, PTSD Smoking Status: Unknown if ever smoked Past Alcohol Use History: Rare Past Drug Use History: None Reported - Past Family History Father Additional Family Medical History / Comment(s): LUPUS, FATHERS MOM, AUNT HAD LUPUS Mother Family Medical History: Osteoarthritis (OA), Thyroid Disorder Additional Family Medical History / Comment(s): GOITER, BOARDERLINE DIABETIC, KIDNEY STONE,GALLSTONES Medications and Allergies Home Medications Medication Instructions Recorded Confirmed Type levETIRAcetam [Keppra] 1,000 mg PO Q12H 02/10/15 11/08/16 History Butalb/APAP/Caff 50-325-40Mg 1 tab PO TID PRN 01/17/16 11/08/16 History [Fioricet 50-325-40] diphenhydrAMINE HCL [Benadryl] 25 mg PO HS PRN 01/17/16 11/08/16 History Baclofen [Lioresal] 20 mg PO BID 03/01/16 11/08/16 History Dicyclomine [Bentyl] 20 mg PO TID PRN 03/01/16 11/08/16 History Divalproex [Depakote] 500 mg PO BID 03/01/16 11/08/16 History Ergocalciferol [Vitamin D2] 50,000 unit PO Q7D 03/01/16 11/08/16 History clonazePAM [KlonoPIN] 1 mg PO BID 03/01/16 11/08/16 History Docusate [Colace] 100 mg PO DAILY PRN 11/08/16 11/08/16 History Allergies Allergy/AdvReac Type Severity Reaction Status Date / Time Gadolinium-Containing Allergy Unknown Verified 11/07/16 22:48 Contrast Medi latex Allergy Unknown Verified 11/07/16 22:41 prochlorperazine Allergy Unknown Verified 11/07/16 22:41 [From Compazine] aspirin AdvReac Unknown Verified 11/07/16 22:41 naproxen AdvReac Unknown Verified 11/07/16 22:41 Physical Exam Vitals: Vital Signs Temp Pulse Pulse Resp BP Pulse Ox 11/09/16 10:21 125/85 11/09/16 07:00 98.3 F 81 10 L 111/64 100 11/09/16 05:10 108/74 11/09/16 05:05 97.6 F 63 16 89/62 96 11/09/16 04:00 14 11/09/16 00:00 14 11/08/16 23:00 14 11/08/16 20:44 113/73 11/08/16 20:00 64 16 11/08/16 19:25 97.9 F 80 16 96/58 95 11/08/16 14:48 98.6 F 74 16 105/59 96 Intake and Output 11/08/16 11/09/16 11/09/16 22:59 06:59 14:59 Intake Total 550 100 Output Total 600 300 Balance -50 -200 Intake: Oral 550 100 Output: Urine 600 300 Other: Voiding Method Bedside Commode # Voids 2 GENERAL EXAM: Patient is alert but seemed to be sleepy and lethargic but arousable and able to give detailed history HEENT: Normocephalic. Normal reaction of pupils, equal size, normal range of extraocular motion. No erythema or exudates in the throat. NECK: No masses, no nuchal rigidity. CHEST: No chest wall deformity. LUNGS: Equal air entry with no crackles or wheeze. HEART: S1 and S2 normal with no audible mumurs or gallops. Regular rhythm, femorals equal on both sides.. ABDOMEN: No hepatosplenomegaly, normal bowel sounds, no guarding or rigidity. SKIN: No rashes CENTRAL NERVOUS SYSTEM: No focal deficits. EXTREMITIES: No cyanosis, clubbing or edema. Results 11/09/16 06:50 11/09/16 06:50 Cardiac Enzymes 11/09/16 Range/Units 06:50 AST 22 (14-36) U/L CBC 11/09/16 Range/Units 06:50 WBC 6.8 (3.8-10.6) k/uL RBC 4.11 (3.80-5.40) m/uL Hgb 13.1 (11.4-16.0) gm/dL Hct 38.9 (34.0-46.0) % Plt Count 259 (150-450) k/uL Comprehensive Metabolic Panel 11/09/16 Range/Units 06:50 Sodium 143 (137-145) mmol/L Potassium 4.3 (3.5-5.1) mmol/L Chloride 110 H (98-107) mmol/L Carbon Dioxide 21 L (22-30) mmol/L BUN 4 L (7-17) mg/dL Creatinine 0.63 (0.52-1.04) mg/dL Glucose 116 H (74-99) mg/dL Calcium 8.9 (8.4-10.2) mg/dL AST 22 (14-36) U/L ALT 32 (9-52) U/L Alkaline Phosphatase 64 (38-126) U/L Total Protein 5.8 L (6.3-8.2) g/dL Albumin 3.6 (3.5-5.0) g/dL Current Medications Generic Name Dose Route Start Last Admin Trade Name Freq PRN Reason Stop Dose Admin Acetaminophen 650 mg 11/08/16 00:25 Tylenol Tab PO Q6HR PRN Mild Pain or Fever > 100.5 Acetaminophen/Butalbital/Caffeine 1 each 11/08/16 01:10 11/09/16 10:01 Fioricet 50-325-40 PO 1 each TID PRN Administration Migraine Headache Baclofen 20 mg 11/08/16 09:00 11/09/16 08:49 Lioresal PO 20 mg BID SEEMA Administration Clonazepam 1 mg 11/08/16 22:00 11/09/16 08:49 Klonopin PO 1 mg TID SEEMA Administration Dicyclomine HCl 20 mg 11/08/16 01:10 Bentyl PO TID PRN IBS Diphenhydramine HCl 25 mg 11/08/16 01:10 11/08/16 22:38 Benadryl PO 25 mg HS PRN Administration Itching Enoxaparin Sodium 40 mg 11/08/16 09:00 11/09/16 08:43 Lovenox SQ 40 mg DAILY SEEMA Administration Ergocalciferol 50,000 unit 11/12/16 09:00 Vitamin D2 PO Q7D SEEMA Hydromorphone HCl 0.5 mg 11/08/16 03:32 11/09/16 09:01 Dilaudid IVP 0.5 mg Q3HR PRN Administration Pain Methylprednisolone Sodium 100 mls @ 100 mls/hr 11/08/16 22:00 11/09/16 05:06 Succinate 250 mg/ Sodium IVPB 100 mls/hr Chloride Q8H SEEMA Administration Valproic Acid 250 mg/ Sodium 52.5 mls @ 50 mls/hr 11/09/16 00:00 11/09/16 08: 45 Chloride IVPB 11/10/16 20:00 50 mls/hr Q8HR SEEMA Administration Magnesium Sulfate/Dextrose 1 100 mls @ 100 mls/hr 11/09/16 20:00 gm/ IV Solution IVPB 11/09/16 20:59 ONCE ONE Lacosamide 50 mg 11/08/16 21:00 11/09/16 08:49 Vimpat PO 50 mg BID SEEMA Administration Levetiracetam 1,000 mg 11/08/16 09:00 11/09/16 08:49 Keppra PO 1,000 mg Q12HR SEEMA Administration Metoclopramide HCl 10 mg 11/08/16 20:45 11/09/16 08:43 Reglan IVP 11/10/16 09:00 10 mg Q6H SEEMA Administration Miscellaneous Information 1 each 11/07/16 22:27 Rx Info: Iv Contrast Was Given MISCELLANE 11/09/16 22:28 DAILY PRN Per Protocol Naloxone HCl 0.2 mg 11/08/16 00:25 Narcan IV Q2M PRN Opioid Reversal Nicotine 1 patch 11/08/16 18:00 11/09/16 09:56 Habitrol 14mg/24hr Patch TRANSDERM 1 patch DAILY SEEMA Administration Pantoprazole Sodium 40 mg 11/08/16 09:00 11/09/16 08:43 Protonix IV 40 mg DAILY SEEMA Administration Sumatriptan Succinate 6 mg 11/08/16 00:29 Imitrex SQ Q12H PRN Headache Intake and Output 11/08/16 11/09/16 11/09/16 22:59 06:59 14:59 Intake Total 550 100 Output Total 600 300 Balance -50 -200 Intake: Oral 550 100 Output: Urine 600 300 Other: Voiding Method Bedside Commode # Voids 2 11/09/16 06:50 11/09/16 06:50 EKG Interpretations (text) Sinus rhythm Assessment and Plan (1) Atypical chest pain Status: Acute (2) Atypical migraine Status: Acute (3) Right sided weakness Status: Acute (4) History of stroke Status: Chronic (5) Seizure Status: Acute (6) Hx of dizziness Status: Acute Plan: No further workup for chest pains. Echo Cardigan showed good LV function. May check blood pressure for postural changes. If there is a segment of postural changes, hypertension be made to increase intravascular volume may increase her fluids and salt intake.
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
--- NOTE | 2016-11-09 18:59 | CONS ---
CONSULTATION Date of Consultation: DATE OF CONSULTATION: 11/08/2016. CHIEF COMPLAINT: Intractable headache. HISTORY OF PRESENT ILLNESS: The patient is a 36-year-old, female, who is being evaluated today on 11/08/2016 by the neurology service per the request of Dr. Hood for an intractable headache. The patient started having this headache Sunday evening which she described as a severe throbbing pain that was gradual in onset. The pain was initially on the right side but has since generalized. She does take Fioricet at home, but this did not help. The following day, she started noticing some weakness on her right side. She was brought in to the emergency room at around midnight for these symptoms. She has been given analgesics and her headache is slightly. She rates it as 7/10 in intensity at the time of my evaluation. A CT scan of the brain was done which was normal. She also had a CT angiogram of the brain and neck and both of those were normal. Her comprehensive metabolic profile and CBC were normal. Her Depakote level was subtherapeutic at 18.9. She does report a history of seizures. Her seizures were occurring very frequently until she was placed on Keppra 1000 mg b.i.d. She is still having recurrent breakthrough seizures and reports that she has significant problems maintaining a therapeutic Depakote level. She is currently on Depakote 500 mg b.i.d. with a subtherapeutic level on this admission. She states that any time her dose is increased, she goes into toxic levels. She also reports significant dizziness and occasional syncope whenever she stands up too fast. Cardiology has been consulted regarding this. PAST MEDICAL HISTORY: Migraine headaches. Seizure disorder. Irritable bowel syndrome. History of MRSA, anxiety disorder, posttraumatic stress disorder, hysterectomy, adenoidectomy, abdominal surgeries, orthopedic surgeries. SOCIAL HISTORY: She rarely drinks alcohol. She denies any tobacco or drug use. FAMILY HISTORY: Positive for lupus, arthritis, and thyroid disorder. Home medications reviewed in the chart. ALLERGIES: GADOLINIUM, LATEX, COMPAZINE, ASPIRIN, NAPROXEN. REVIEW OF SYSTEMS: Constitutional: Positive for fatigue. Eyes: Negative. EENT: Negative. Cardiovascular: As mentioned above. Respiratory: Negative. Neurological: As mentioned above. Gastrointestinal: Positive for nausea. Genitourinary: Negative. Psychiatric: As mentioned above. Musculoskeletal: Positive for occasional neck pain and low back pain and knee pain. Dermatological: Negative. Endocrine: Negative. PHYSICAL EXAM: Vital signs show a temperature of 97.9, pulse 69, respirations 16, blood pressure 106/71. GENERAL APPEARANCE: The patient is a well-developed female, who appears to be in no acute distress. HEENT: Normocephalic, atraumatic. Right facial weakness is seen. The extraocular muscles are intact. NECK: Supple with no masses felt. CARDIOVASCULAR: Regular rate and rhythm. ABDOMEN: Nontender nondistended. Extremities showed no edema or clubbing. Neurological exam the patient is alert and aware and oriented x3. Speech and language are normal. Strength is 4/5 on the right and 5- out of 5 on the left. Pronator drift is seen on the right. Sensory exam was normal to light touch in all 4 extremities. No tremors or seizure like activity is seen. Cranial nerve testing showed right facial weakness. IMPRESSION: 1. Intractable complicated migraine. 2. Right-sided weakness. 3. Seizure disorder. 4. Recurrent syncope. 5. Subtherapeutic Depakote level. RECOMMENDATION: Given the patient's headache symptoms and normal CT scan of the brain and CT angiograms, I do believe she is having a complicated migraine with neural deficits. An MRI of the brain will be ordered to rule out any other etiologies. This will be done without contrast due to her gadolinium allergy. I will treat her with IV Solu-Medrol 250 mg every 8 hours, Reglan 10 mg IV every 6 hours, and magnesium 1 g IV daily for 2 days. I will also give her Depakote 250 mg IV every 8 hours. Continue analgesics as needed. Regarding her seizure history, I will discontinue oral Depakote and start her on Vimpat 50 mg twice a day. This will be increased to 100 mg twice a day in the outpatient clinic. An EEG has been ordered. As for her syncopal episodes, this appears to be orthostatic in etiology and cardiology has been consulted. Consider a tilt table test to check for neurocardiogenic syncope. I will continue to follow with you. Further recommendations to follow. Thank you for allowing me to participate in the care of your patient. If you have any questions, please feel free to contact me. Please send a copy of this dictation to Dr. Sanaz Conner and Dr. Hood. MMODL / IJN: [id number] /
[2016-11-09] MEDS ORDERED: MAGNESIUM SULFATE-D5W PMX 1 GM in DEXTROSE/WATER 1 100ML.BAG IVPB ONE (20:00)
[2016-11-10] MEDS: HYDROmorphone 1 MG/ML 1 ML SYRINGE IVP PRN ×6 (00:55→20:40)
[2016-11-10] MEDS: VALPROATE SODIUM 250 MG in SODIUM CHLORIDE 0.9% 50 ML IVPB SCH ×3 (03:18→16:14)
[2016-11-10] MEDS: METOCLOPRAMIDE 5 MG/ML 2 ML VIAL IVP SCH ×2 (03:18→07:50)
[2016-11-10 07:09] LABS: Basophils % (A) 0 %; CH 31.6; CHCM 33.3; Eosinophils % (A) 0 %; HCT 37.8 % (34.0-46.0); HDW 2.08; HGB 12.2 gm/dL (11.4-16.0); Luc # (Auto) 0.03; Luc % (Auto) 0; Lymphocytes # (A) 0.8 k/uL (1.0-4.8); Lymphocytes % (A) 7 %; MCH 30.7 pg (25.0-35.0); MCHC 32.3 g/dL (31.0-37.0); MCV 95.2 fL (80.0-100.0); Mean Platelet Volume 9.2; Monocytes # (A) 0.1 k/uL (0-1.0); Monocytes % (A) 1 %; Neutrophils # (A) 11.5 k/uL (1.3-7.7); Neutrophils % (A) 92 %; RBC 3.97 m/uL (3.80-5.40); RDW 13.3 % (11.5-15.5); WBC 12.6 k/uL (3.8-10.6); WBC (Perox) 12.59
[2016-11-10 07:22] LABS: ALT 37 U/L (9-52); AST 20 U/L (14-36); Alkaline Phosphatase 57 U/L (38-126); Anion Gap 8 mmol/L; Blood Urea Nitrogen 10 mg/dL (7-17); Calcium 9.3 mg/dL (8.4-10.2); Carbon Dioxide 24 mmol/L (22-30); Chloride 108 mmol/L (98-107); Glucose 109 mg/dL (74-99); Non-African American GFR(MDRD) >60 (>60 ml/min/1.73 sqM); Potassium 4.2 mmol/L (3.5-5.1); Sodium 140 mmol/L (137-145); Total Bilirubin 0.2 mg/dL (0.2-1.3); Total Protein 5.9 g/dL (6.3-8.2)
[2016-11-10] MEDS: ENOXAPARIN 40 MG/0.4 ML SYRINGE SQ SCH (07:51)
[2016-11-10] MEDS: clonazePAM 1 MG TAB PO SCH ×3 (08:05→22:45)
[2016-11-10] MEDS: BACLOFEN 10 MG TAB PO SCH ×2 (08:05→20:37)
[2016-11-10] MEDS: NICOTINE 14MG/24HR PATCH TRANSDERM SCH (08:05)
[2016-11-10] MEDS: LACOSAMIDE 50 MG TABLET PO SCH ×2 (08:05→20:40)
[2016-11-10] MEDS: levETIRAcetam 500 MG TAB PO SCH ×2 (08:05→20:37)
[2016-11-10] MEDS: PANTOPRAZOLE 40 MG TABLET PO SCH (08:05)
--- NOTE | 2016-11-10 12:55 | EEG ---
ELECTROENCEPHALOGRAM REPORT Date of Service: 11/09/2016 REASON FOR TESTING: Seizures. CURRENT ANTIEPILEPTIC MEDICATIONS: Keppra, Depakote, Vimpat. DESCRIPTION OF THE PROCEDURE: This EEG was performed using a 21 channel digital electroencephalograph, following international 10-20 system. DESCRIPTION OF THE RECORDING: From the beginning of the tracing, and with the patient's eyes closed, the background rhythm was mostly consisting of 9 Hz alpha frequency in the posterior occipital leads. No obvious asymmetry is seen. Photic stimulation was performed with a good driving response seen. No pathological waves were elicited. Hyperventilation was not performed. Later in the tracing, the patient does reach stage II of sleep, and occasional K complexes are seen. No epileptiform discharges were seen. Her EKG lead showed a regular rate and rhythm. INTERPRETATION: This asleep and awake EEG can be considered within normal limits. There is no asymmetry seen. No epileptiform discharges were noticed. The absence of epileptiform discharges does not rule out the diagnosis of epilepsy, therefore clinical correlation is recommended. MMDI / ELMERN: [id number] /
--- NOTE | 2016-11-10 14:20 | P.PN ---
Subjective Patient was seen and evaluated by me today for follow-up. Patient's report having severe headache that is not any better since admission. When I walked in the room she was talking on her cell phone and appeared very comfortable. No evidents overnight reported to me by nursing staff. Objective - Vital Signs Vital signs: Vital Signs Temp 97.1 F L 11/10/16 07:24 Pulse 58 L 11/10/16 08:00 Resp 16 11/10/16 08:00 BP 129/72 11/10/16 09:38 Pulse Ox 96 11/10/16 07:24 Intake & Output 11/09/16 11/10/16 11/10/16 18:59 06:59 18:59 Intake Total 850 1090 Balance 850 1090 Weight 54.431 kg Intake: Intake, IV Titration 850 Amount Valproate Sodium 250 mg 50 In Sodium Chloride 0.9% 50 ml @ 50 mls/hr IVPB Q8HR SEEMA Rx#:[id number] methylPREDNISolone SOD 800 SUCC 250 mg In Sodium Chloride 0.9% 100 ml @ 100 mls/hr IVPB Q8H SEEMA Rx#:[id number] Oral 1090 Other: Voiding Method Bedside Commode Bedside Commode # Voids 2 - Exam General: The patient is awake and alert, in no distress Eye: there is normal conjunctiva bilaterally. Neck: The neck is supple, there is no JVD. Cardiovascular: Normal S1-S2, no S3-S4, no murmurs. Respiratory: Lungs clear to auscultation bilaterally Gastrointestinal: Abdomen is soft, nontender Musculoskeletal: There is no pedal edema. Neurological:. Speech is normal. Skin: Skin is warm and dry - Labs CBC & Chem 7: 11/10/16 06:53 11/10/16 06:53 Labs: Abnormal Lab Results - Last 24 Hours (Table) 11/10/16 11/10/16 Range/Units 06:53 06:53 WBC 12.6 H (3.8-10.6) k/uL Neutrophils # 11.5 H (1.3-7.7) k/uL Lymphocytes # 0.8 L (1.0-4.8) k/uL Chloride 108 H (98-107) mmol/L Glucose 109 H (74-99) mg/dL Total Protein 5.9 L (6.3-8.2) g/dL Assessment and Plan Plan: #1 severe migraine headache, continue was Dilaudid when necessary and and Fioricet. Patient reports the Fioricet is not working. consult neurology #2 right sided weakness: Possibly related to her migraine headache. Neurology has added IV steroids. MRI of the brain and EEG unremarkable. Computed tomography scan of the brain negative CTA of the neck negative Echo shows an EF of 60-65%. #3 episodes of palpitation and dizziness at this time will proceed was telemetry. Echo shows EF of 60-65%. Cardiology consult pending. #4 tobacco abuse patient was counseled to quit smoking at this time she will have nicotine patch 14 g change daily #5 underlying history of anxiety and posttraumatic stress disorder maintained on Klonopin continue #6. Underlying seizure disorder, Depakote was discontinued and patient was started on Vimpat 50 mg twice daily as recommended by neurology. Today, I reviewed her medication list lab work results. Patient was started on high-dose IV Solu-Medrol 250 mg every 8 hours, then 30 mg IV every 6 hours and magnesium 1 mg IV daily for 2 days as recommended by neurology. Anticipate discharge home Sunday or Sunday.
[2016-11-10] MEDS ORDERED: METOCLOPRAMIDE 5 MG/ML 2 ML VIAL IVP STA (16:18)
[2016-11-10] MEDS: BUTALB/APAP/CAFF 50-325-40MG TAB PO PRN (22:45)
[2016-11-11] MEDS: HYDROmorphone 1 MG/ML 1 ML SYRINGE IVP PRN ×4 (00:19→21:20)
--- NOTE | 2016-11-11 00:41 | P.PN ---
Subjective Principal diagnosis: atypical migraine Patient is a 36-year-old female is being followed by neurology for intractable headache. Patient starting having a headache approximately 5 days ago which she describes a severe throbbing pain with gradual onset. Pain was originally right-sided but has since generalized. Patient does reportedly take Fioricet at home but did not help. Following day, patient started noticing some weakness on her right side. She is brought to the emergency room. She was given analgesics for headache and it slightly improved. Originally her pain was a 7 out of 10 in intensity. Today she reports that is a 7 out of [address] scan of the brain was done was normal. CT angiogram of the brain and neck were both normal. Her CMP and CBC were normal. At time of admission her Depakote level was subtherapeutic. She does report a history of seizure. She is recurring frequently until she was placed on Keppra 1000 mg twice a day. She is still having recent breakthrough seizure and reports that she has significant problems maintaining a therapeutic Depakote level. She is currently on Depakote 500 mg twice a day. She states that anytime her dose is increased she goes to his toxic levels. She reports significant dizziness, occasional syncope whenever she stands up too fast. Cardiology has been involved and consulted. Patient was started on Vimpat and depakote was decreased / weaning began. patient was off the floor yesterday during rounding. Today the patient is supine in bed resting, alert and oriented 3 and in no acute distress. Patient was observed to be actively interacting with family at the bedside.as introduced myself, the patient immediately began reiterating how she did not feel well and was not doing well unless she had her Dilaudid on a regular basis for her headache and pain. I spoke to the patient regarding her Fioricet use which has been minimal. The patient that Dilaudid is not first line for migraine and that she would need to begin using her Fioricet. patient was also given IV steroid infusion which she states only minimally reduced her migraine related pain. Again she reiterated that Dilaudid was the only thing that could decrease her pain. Objective - Vital Signs Vital signs: Vital Signs Temp 98.3 F 11/10/16 14:44 Pulse 58 L 11/10/16 15:50 Resp 16 11/10/16 15:50 BP 123/81 11/10/16 14:44 Pulse Ox 98 11/10/16 14:44 Intake & Output 11/10/16 11/10/16 11/11/16 06:59 18:59 06:59 Intake Total 1090 Balance 1090 Weight 54.431 kg Intake: Oral 1090 Other: Voiding Method Bedside Commode Bedside Commode # Voids 3 - Exam Constitutional: AOx3, cooperative HEENT: NC/AT, no facial asymmetry is seen. Throat: Supple, no masses Respiratory: No increased work of breathing Cardiac: Regular rate and Rhythm GI: non tender, non distended Musculoskeletal: Mate Ship strengths are unequal bilaterally 4/5 on the right and 5/ 5 on the left. Lower extremity strengths are unequal 4/5 on the right and 5/5 on the left. Neurological: CN II-XII in tact, patient was AOx3, speech and language are normal, no unilateralizing weakness, no seizure activity note on physical exam. Sensation was normal. Integementary: no rash, no erythema Psychiatric: mood and affect appropriate - Labs CBC & Chem 7: 11/10/16 06:53 11/10/16 06:53 Labs: Abnormal Lab Results - Last 24 Hours (Table) 11/10/16 11/10/16 Range/Units 06:53 06:53 WBC 12.6 H (3.8-10.6) k/uL Neutrophils # 11.5 H (1.3-7.7) k/uL Lymphocytes # 0.8 L (1.0-4.8) k/uL Chloride 108 H (98-107) mmol/L Glucose 109 H (74-99) mg/dL Total Protein 5.9 L (6.3-8.2) g/dL Assessment and Plan (1) Atypical migraine Status: Acute (2) Headache Status: Acute (3) Right sided weakness Status: Acute Plan: Patient does have symptoms consistent with complicated migraine and neural deficits. MRI of the brain noted no findings to support symptoms. IV Solu- Medrol 250 mg every 8 hours, Reglan 10 mg IV every 6 hours and magnesium 1 g IV daily for 2 days has been only minimally effective. the patient is very persistent about solely using Dilaudid to address any and all pain including her migraine pain. There is a notation from her previous shift that nursing is having difficulty attempting to get the patient to use Fioricet to attempt to address her migraine related pain. Again today the patient made repeated and numerous requests and statements that Dilaudid is the only medication that is helping her. I reeducated the patient extensively regarding Dilaudid, addiction risk potential, lack of first-line use in migraine and her unwillingness to use Fioricet in an attempt to identify other medications are more suited to her condition. I did discuss the matter with night nursing staff and the patient is still adamant and making repeated requests for her Dilaudid. I am concerned with this behavior. I am going to decrease her Dilaudid access to every 6 hours and attempt to have the patient use more suitable medications to address her head pain. Depakote 250 mg IV every 8 hours continued. Seizure history, discontinued oral Depakote previously and started Vimpat 50 mg twice a day. patient does appear to be tolerating the transition to Vimpat. EEG also returned normal. Syncopal spells appear to be related to orthostatic etiology and cardiology has been consult to. We still recommend a tilt table test for neurocardiogenic syncope. Status: Neurology will continue to follow and provide updates as needed or warranted we do concur with the timetable presented of discharge anticipated as Sunday or Sunday. Feel free to contact our office with any further questions. I discussed the patient's pertinent medical information with Dr. Raza. He agrees with the plan of care as implemented.
[2016-11-11 07:16] LABS: ALT 37 U/L (9-52); AST 22 U/L (14-36); Alkaline Phosphatase 55 U/L (38-126); Anion Gap 6 mmol/L; Blood Urea Nitrogen 12 mg/dL (7-17); Calcium 9.3 mg/dL (8.4-10.2); Carbon Dioxide 27 mmol/L (22-30); Chloride 106 mmol/L (98-107); Glucose 87 mg/dL (74-99); Non-African American GFR(MDRD) >60 (>60 ml/min/1.73 sqM); Potassium 4.1 mmol/L (3.5-5.1); Sodium 139 mmol/L (137-145); Total Bilirubin 0.3 mg/dL (0.2-1.3); Total Protein 5.7 g/dL (6.3-8.2)
[2016-11-11 07:26] LABS: Basophils % (A) 0 %; CH 30.4; CHCM 32.6; Eosinophils % (A) 0 %; HCT 37.2 % (34.0-46.0); HDW 2.02; HGB 12.4 gm/dL (11.4-16.0); Luc % (Auto) 1; Lymphocytes % (A) 16 %; MCH 31.3 pg (25.0-35.0); MCHC 33.4 g/dL (31.0-37.0); MCV 93.6 fL (80.0-100.0); Mean Platelet Volume 8.8; Monocytes # (A) 0.4 k/uL (0-1.0); Monocytes % (A) 3 %; Neutrophils % (A) 80 %; RBC 3.97 m/uL (3.80-5.40); RDW 12.9 % (11.5-15.5); WBC 12.4 k/uL (3.8-10.6); WBC (Perox) 12.95
[2016-11-11] MEDS: NICOTINE 14MG/24HR PATCH TRANSDERM SCH (10:40)
[2016-11-11] MEDS: ENOXAPARIN 40 MG/0.4 ML SYRINGE SQ SCH (10:41)
[2016-11-11] MEDS: clonazePAM 1 MG TAB PO SCH ×4 (10:41→23:20)
[2016-11-11] MEDS: levETIRAcetam 500 MG TAB PO SCH ×2 (10:41→21:19)
[2016-11-11] MEDS: PANTOPRAZOLE 40 MG TABLET PO SCH (10:41)
[2016-11-11] MEDS: BACLOFEN 10 MG TAB PO SCH ×2 (10:41→21:19)
[2016-11-11] MEDS ORDERED: LACOSAMIDE 50 MG TABLET PO STA (10:48)
[2016-11-11] MEDS: LACOSAMIDE 50 MG TABLET PO SCH ×2 (10:50→21:20)
--- NOTE | 2016-11-11 11:39 | P.PN ---
Subjective Patient is awake and alert. She is complaining of typical chest pain. She is known to have pain medication seeking behavior. She is requesting her diet noted to be increased in dose and frequency. Neurology following. 12-lead EKG ordered this morning. Objective - Vital Signs Vital signs: Vital Signs Temp 97.4 F L 11/11/16 07:06 Pulse 52 L 11/11/16 10:09 Resp 16 11/11/16 10:09 BP 127/84 11/11/16 10:09 Pulse Ox 98 11/11/16 10:09 Intake & Output 11/10/16 11/11/16 11/11/16 18:59 06:59 18:59 Intake Total 750 Output Total 1200 Balance -450 Weight 54.431 kg Intake: Oral 750 Output: Urine 1200 Other: Voiding Method Bedside Commode Bedside Commode # Voids 3 2 - Exam General: The patient is awake and alert, in no distress Eye: there is normal conjunctiva bilaterally. Neck: The neck is supple, there is no JVD. Cardiovascular: Normal S1-S2, no S3-S4, no murmurs. Respiratory: Lungs clear to auscultation bilaterally Gastrointestinal: Abdomen is soft, nontender Musculoskeletal: There is no pedal edema. Neurological:. Speech is normal. Skin: Skin is warm and dry - Labs CBC & Chem 7: 11/11/16 06:42 11/11/16 06:42 Labs: Abnormal Lab Results - Last 24 Hours (Table) 11/11/16 11/11/16 Range/Units 06:42 06:42 WBC 12.4 H (3.8-10.6) k/uL Neutrophils # 10.0 H (1.3-7.7) k/uL Total Protein 5.7 L (6.3-8.2) g/dL Assessment and Plan Plan: #1 severe migraine headache, continue was Dilaudid when necessary and and Fioricet. Patient reports the Fioricet is not working. consult neurology #2 right sided weakness: Possibly related to her migraine headache. Neurology has added IV steroids. MRI of the brain and EEG unremarkable. Computed tomography scan of the brain negative CTA of the neck negative Echo shows an EF of 60-65%. #3 episodes of palpitation and dizziness at this time will proceed was telemetry. Echo shows EF of 60-65%. Cardiology consult pending. #4 tobacco abuse patient was counseled to quit smoking at this time she will have nicotine patch 14 g change daily #5 underlying history of anxiety and posttraumatic stress disorder maintained on Klonopin continue #6. Underlying seizure disorder, Depakote was discontinued and patient was started on Vimpat 50 mg twice daily as recommended by neurology. Today, I reviewed her medication list lab work results. Patient was started on high-dose IV Solu-Medrol 250 mg every 8 hours, then 30 mg IV every 6 hours and magnesium 1 mg IV daily for 2 days as recommended by neurology. Anticipate discharge home Sunday or Sunday.
[2016-11-11] MEDS ORDERED: ONDANSETRON 4 MG/2 ML VIAL IVP PRN (13:28)
[2016-11-12] MEDS: diphenhydrAMINE 25 MG CAP PO PRN (00:54)
--- NOTE | 2016-11-12 01:38 | P.PN ---
Subjective Principal diagnosis: atypical migraine Patient is a 36-year-old female is being followed by neurology for intractable headache. Patient starting having a headache approximately 5 days ago which she describes a severe throbbing pain with gradual onset. Pain was originally right-sided but has since generalized. Patient does reportedly take Fioricet at home but did not help. Following day, patient started noticing some weakness on her right side. She is brought to the emergency room. She was given analgesics for headache and it slightly improved, but now is increasing per the patient. Today she reports that is a 7--8 out of [address] scan of the brain was normal. CT angiogram of the brain and neck were both normal. Her CMP and CBC were normal. At time of admission her Depakote level was subtherapeutic. She does report a history of seizure. She was having seizure recurring frequently until she was placed on Keppra 1000 mg twice a day. Depakote was stopped. She is still having possible breakthrough seizure like behavior. When she was informed that her Dialudid was decreased to Q6hrs, within an hour, the patient had "seizure like activity" involving extremity "jerking" per nursing. She then stated that she needed ativan beacause that what she normally gets when she has seizures like that. She reports significant dizziness, occasional syncope whenever she stands up too fast. Cardiology has been involved and consulted. Patient was started on Vimpat previously and increased by Dr raza via phone prior to my arrival to 100 mg, BID. Prior to entering the room, I observed the patient from the young verbally interacting with family freely. Just prior to the nurse entering the room, patient repositioned herself and became less interactive, appearing to conceal her previous ability to engage. I entered, began talking to the patient and confronted her with the observations. The patient further attempted to deny her behavior. Her room mate stated "you should see her in the room when you are not here. She is just fine." Today the patient is supine in bed resting, alert and oriented 3 and in no acute distress. Patient immediately began reiterating how she did not feel well and was not doing well unless she had her Dilaudid on a regular basis for her headache and pain. I spoke to the patient regarding her Fioricet use. Objective - Vital Signs Vital signs: Vital Signs Temp 98 F 11/12/16 01:15 Pulse 40 L 11/12/16 01:15 Resp 16 11/12/16 01:15 BP 119/77 11/12/16 01:15 Pulse Ox 97 11/12/16 01:15 Intake & Output 11/11/16 11/11/16 11/12/16 06:59 18:59 06:59 Intake Total 750 25 Output Total 1200 200 Balance -450 -175 Weight 54.431 kg Intake: Oral 750 25 Output: Urine 1200 200 Other: Voiding Method Bedside Commode Toilet # Voids 2 2 - Exam Constitutional: AOx3, intermittently cooperative HEENT: NC/AT, no facial asymmetry is seen. Throat: Supple, no masses Respiratory: No increased work of breathing Cardiac: Regular rate and Rhythm GI: non tender, non distended Musculoskeletal: Talent Scout strengths are unequal bilaterally 4/5 on the right and 5/ 5 on the left. Lower extremity strengths are unequal 4/5 on the right and 5/5 on the left. Neurological: CN II-XII in tact, patient was AOx3, speech and language are normal, no seizure activity note on physical exam. Sensation was abnormal with decreased sensity to light touch on the right. Integementary: no rash, no erythema Psychiatric: depressed, withdrawn - Labs CBC & Chem 7: 11/11/16 06:42 11/11/16 06:42 Labs: Abnormal Lab Results - Last 24 Hours (Table) 11/11/16 11/11/16 Range/Units 06:42 06:42 WBC 12.4 H (3.8-10.6) k/uL Neutrophils # 10.0 H (1.3-7.7) k/uL Total Protein 5.7 L (6.3-8.2) g/dL Assessment and Plan (1) Atypical migraine Status: Acute (2) Headache Status: Acute (3) Right sided weakness Status: Acute Plan: Patient does have symptoms consistent with complicated migraine and neurological deficits. MRI of the brain noted no findings to support symptoms. IV Solu-Medrol 250 mg every 8 hours, Reglan 10 mg IV every 6 hours and magnesium 1 g IV daily for 2 days has been only minimally effective. The patient is very persistent about solely using Dilaudid to address any and all pain including her migraine pain and if not she is persistent about Ativan. Continue Vimpat 100 mg, BID, EEG also returned normal. Syncopal spells appear to be related to orthostatic etiology and cardiology has been consult to. We still recommend a tilt table test for neurocardiogenic syncope. STRONGLY recommend psychiatric consult for the patient for possible malingering. Status: Neurology will continue to follow and provide updates as needed or warranted we do concur with the timetable presented of discharge anticipated as Sunday or Sunday. Feel free to contact our office with any further questions. I discussed the patient's pertinent medical information with Dr. Raza. He agrees with the plan of care as implemented.
[2016-11-12] MEDS: HYDROmorphone 1 MG/ML 1 ML SYRINGE IVP PRN (05:43)
[2016-11-12 07:17] LABS: Basophils % (A) 0 %; CH 31.8; CHCM 33.9; Eosinophils # (A) 0.1 k/uL (0-0.7); Eosinophils % (A) 1 %; HCT 38.6 % (34.0-46.0); HDW 2.12; HGB 12.8 gm/dL (11.4-16.0); Luc # (Auto) 0.04; Luc % (Auto) 0; Lymphocytes % (A) 11 %; MCH 31.3 pg (25.0-35.0); MCHC 33.3 g/dL (31.0-37.0); Monocytes # (A) 0.3 k/uL (0-1.0); Monocytes % (A) 3 %; Neutrophils # (A) 7.7 k/uL (1.3-7.7); Neutrophils % (A) 85 %; RBC 4.11 m/uL (3.80-5.40); RDW 13.4 % (11.5-15.5); WBC 9.1 k/uL (3.8-10.6); WBC (Perox) 9.94
[2016-11-12 07:35] LABS: ALT 62 U/L (9-52); AST 38 U/L (14-36); Alkaline Phosphatase 54 U/L (38-126); Anion Gap 9 mmol/L; Blood Urea Nitrogen 15 mg/dL (7-17); Calcium 9.5 mg/dL (8.4-10.2); Carbon Dioxide 29 mmol/L (22-30); Chloride 103 mmol/L (98-107); Glucose 104 mg/dL (74-99); Non-African American GFR(MDRD) >60 (>60 ml/min/1.73 sqM); Potassium 4.1 mmol/L (3.5-5.1); Sodium 141 mmol/L (137-145); Total Bilirubin 0.3 mg/dL (0.2-1.3); Total Protein 6.2 g/dL (6.3-8.2)
[2016-11-12] MEDS ORDERED: ERGOCALCIFEROL 50,000 UNIT CAP PO SCH (09:00)
[2016-11-12] MEDS: levETIRAcetam 500 MG TAB PO SCH (10:17)
[2016-11-12] MEDS: NICOTINE 14MG/24HR PATCH TRANSDERM SCH (10:17)
[2016-11-12] MEDS: LACOSAMIDE 50 MG TABLET PO SCH (10:17)
[2016-11-12] MEDS: clonazePAM 1 MG TAB PO SCH ×2 (10:18→16:08)
[2016-11-12] MEDS: ENOXAPARIN 40 MG/0.4 ML SYRINGE SQ SCH (10:18)
[2016-11-12] MEDS: BACLOFEN 10 MG TAB PO SCH ×2 (10:18→22:03)
[2016-11-12] MEDS: BUTALB/APAP/CAFF 50-325-40MG TAB PO PRN (13:29)
[2016-11-12] MEDS: PANTOPRAZOLE 40 MG TABLET PO SCH (13:33)
--- NOTE | 2016-11-12 13:51 | P.PN ---
Subjective Patient was noted to be significantly bradycardic with heart rate in the 40s and 50s while awake and low 30s when sleeping. Awaiting cardiology evaluation. She is a symptomatic. Objective - Vital Signs Vital signs: Vital Signs Temp 97 F L 11/12/16 12:05 Pulse 40 L 11/12/16 07:11 Resp 16 11/12/16 07:11 BP 120/81 11/12/16 12:05 Pulse Ox 97 11/12/16 07:11 Intake & Output 11/11/16 11/12/16 11/12/16 18:59 06:59 18:59 Intake Total 225 Output Total 200 1000 Balance 25 -1000 Weight 54.431 kg Intake: Intake, IV Titration 200 Amount methylPREDNISolone SOD 200 SUCC 250 mg In Sodium Chloride 0.9% 100 ml @ 100 mls/hr IVPB Q8H [facility] Rx#:[id number] Oral 25 Output: Urine 200 1000 Other: Voiding Method Toilet # Voids 2 2 - Exam General: The patient is awake and alert, in no distress Eye: there is normal conjunctiva bilaterally. Neck: The neck is supple, there is no JVD. Cardiovascular: Normal S1-S2, no S3-S4, no murmurs. Respiratory: Lungs clear to auscultation bilaterally Gastrointestinal: Abdomen is soft, nontender Musculoskeletal: There is no pedal edema. Neurological:. Speech is normal. Skin: Skin is warm and dry - Labs CBC & Chem 7: 11/12/16 06:15 11/12/16 06:15 Labs: Abnormal Lab Results - Last 24 Hours (Table) 11/12/16 Range/Units 06:15 Glucose 104 H (74-99) mg/dL AST 38 H (14-36) U/L ALT 62 H (9-52) U/L Total Protein 6.2 L (6.3-8.2) g/dL Assessment and Plan Plan: #1 severe migraine headache, continue was Dilaudid when necessary and and Fioricet. Patient reports the Fioricet is not working. consult neurology #2 right sided weakness: Possibly related to her migraine headache. Neurology has added IV steroids. MRI of the brain and EEG unremarkable. Computed tomography scan of the brain negative CTA of the neck negative Echo shows an EF of 60-65%. #3 episodes of palpitation and dizziness at this time will proceed was telemetry. Echo shows EF of 60-65%. Cardiology consult pending. #4 tobacco abuse patient was counseled to quit smoking at this time she will have nicotine patch 14 g change daily #5 underlying history of anxiety and posttraumatic stress disorder maintained on Klonopin continue #6. Underlying seizure disorder, Depakote was discontinued and patient was started on Vimpat 50 mg twice daily as recommended by neurology. #7, significant bradycardia. May be attributed to Vimpat as he was recently started. This was discontinued today. Thyroid function test ordered and pending. Echocardiogram showed preserved ejection fraction and no significant valvular abnormalities. Today, I reviewed her medication list lab work results. Patient was started on high-dose IV Solu-Medrol 250 mg every 8 hours, then 30 mg IV every 6 hours and magnesium 1 mg IV daily for 2 days as recommended by neurology. Will discuss with neurology as substitute for Vimpat.
[2016-11-12] MEDS: ONDANSETRON 4 MG/2 ML VIAL IVP PRN (14:32)
[2016-11-12] MEDS ORDERED: MORPHINE SULFATE 2 MG/ML SYRINGE IVP PRN (14:46)
[2016-11-12 14:48] LABS: Glucose,Whole Blood 117 mg/dL (75-99)
[2016-11-12] MEDS ORDERED: BUTA/APAP/CAF/COD 50-325-40-30 CAP PO STA (17:52)
[2016-11-12] MEDS ORDERED: BUTALB/APAP/CAFF 50-325-40MG TAB PO STA (17:59)
[2016-11-12] MEDS: LEVOTHYROXINE IVP 100 MCG/5 ML VIAL IV SCH (18:27)
[2016-11-12 19:29] LABS: Glucose,Whole Blood 122 mg/dL (75-99)
[2016-11-12] MEDS ORDERED: ACETAMINOPHEN IV (For NPO) 1,000 MG in EMPTY BAG 1 BAG IVPB STA (19:48)
[2016-11-12] MEDS ORDERED: levETIRAcetam IV 1,500 MG in SALINE 1 100ML.BAG IVPB STA (19:51)
[2016-11-12 19:59] LABS: Basophils % (A) 0 %; CH 31.4; CHCM 32.8; Eosinophils # (A) 0.1 k/uL (0-0.7); Eosinophils % (A) 1 %; HDW 2.08; HGB 13.9 gm/dL (11.4-16.0); Luc # (Auto) 0.03; Luc % (Auto) 0; Lymphocytes # (A) 0.7 k/uL (1.0-4.8); Lymphocytes % (A) 7 %; MCHC 32.3 g/dL (31.0-37.0); MCV 96.1 fL (80.0-100.0); Mean Platelet Volume 10.1; Monocytes # (A) 0.2 k/uL (0-1.0); Monocytes % (A) 2 %; Neutrophils # (A) 9.3 k/uL (1.3-7.7); Neutrophils % (A) 90 %; RBC 4.47 m/uL (3.80-5.40); RDW 13.3 % (11.5-15.5); WBC 10.4 k/uL (3.8-10.6); WBC (Perox) 10.93
[2016-11-12 20:15] LABS: ALT 70 U/L (9-52); AST 35 U/L (14-36); Alkaline Phosphatase 64 U/L (38-126); Anion Gap 10 mmol/L; Blood Urea Nitrogen 14 mg/dL (7-17); Calcium 9.7 mg/dL (8.4-10.2); Carbon Dioxide 25 mmol/L (22-30); Chloride 106 mmol/L (98-107); Glucose 120 mg/dL (74-99); Non-African American GFR(MDRD) >60 (>60 ml/min/1.73 sqM); Phosphorous 3.6 mg/dL (2.5-4.5); Potassium 4.4 mmol/L (3.5-5.1); Sodium 141 mmol/L (137-145); Total Bilirubin 0.4 mg/dL (0.2-1.3); Total Protein 6.5 g/dL (6.3-8.2)
--- NOTE | 2016-11-12 20:28 | XR ---
EXAMINATION TYPE: XR chest 1V portable DATE OF EXAM: 11/12/2016 COMPARISON: 11/07/2016 INDICATION: Short of breath, chest pain TECHNIQUE: Single frontal view of the chest is obtained. FINDINGS: The heart size is normal. The pulmonary vasculature is normal. The lungs are clear. IMPRESSION: 1. No acute pulmonary process.
[2016-11-12 20:33] LABS: ABG Base Excess 4.9 mmol/L; ABG HCO3 28 mmol/L (21-25); ABG PCO2 34 mmHg (35-45); ABG PH 7.52 (7.35-7.45); ABG PO2 100 mmHg (83-108); ABG TCO2 29 mmol/L (19-24)
--- NOTE | 2016-11-12 20:39 | P.PN ---
Renetta PARKER was called around 7:30 PM. I arrived to the room shortly after being the hospitalist on-call in-house. The patient was found moaning and does have pulses. Nurses reported that the patient did not actually lose pulses. 2 very short rounds of CPR where conducted before my arrival for concerns of very thready carotid pulse initially. Upon my arrival the patient heart rate was in the 40s, her blood pressure was 140s over 80s, her respiratory rate was in the low 10s. She was very lethargic, complaining of chest pain. When she was asked what's hurting, she responds by saying chest pain. She does not open her eyes to order. She is not moving her right lower extremity, but moved her left lower extremity spontaneously. She did have bilateral breath sounds, no murmurs or heaves on heart exam, intact S1 and S2. EKG showed sinus bradycardia. Stat arterial blood gas showed respiratory alkalosis. Resuscitative fluids continue to be running at 150 mL/h. Stat CBC and comprehensive metabolic panel were unremarkable. Stat CT head and chest x-ray were ordered. Patient was noted to be on Keppra 1000 twice a day at home for seizure history. She was also noted to gets a Vimpat dose today. Loading dose of Keppra 1500s milligrams was ordered as her current attack may be a seizure with post ictal state. She was also ordered 1000 mg of Tylenol for her chest pain. Nurses were instructed to avoid opioids. They are contacting the primary hospitalist team over the phone. Patient will be transferred to the ICU. We are also in the process of contacting cardiology service who were on board, for concern for need for IV atropine versus placing given her bradycardia with altered mental status. I will continue to follow overnight, pending for evaluation by the primary hospitalist team as well as the land mobile radio technician field irrigation worker. Objective - Vital Signs Vital signs: Vital Signs Temp 98.5 F 11/12/16 19:00 Pulse 42 L 11/12/16 19:00 Resp 12 11/12/16 19:00 BP 124/81 11/12/16 19:00 Pulse Ox 98 11/12/16 18:12 Intake & Output 11/12/16 11/12/16 11/13/16 06:59 18:59 06:59 Intake Total 225 Output Total 200 1000 Balance 25 -1000 Intake: Intake, IV Titration 200 Amount methylPREDNISolone SOD 200 SUCC 250 mg In Sodium Chloride 0.9% 100 ml @ 100 mls/hr IVPB Q8H [facility] Rx#:[id number] Oral 25 Output: Urine 200 1000 Other: Voiding Method Toilet # Voids 2 2 - Exam Responsive only to pain, very lethargic Clear to auscultation bilaterally, no wheezing S1 and S2 intact, no murmurs No abdominal tenderness Sternal tenderness to palpation Unable to assess neurological exam, patient is moving left lower extremity parallel to bed, not performing the right lower extremity No lower extremity edema - Labs CBC & Chem 7: 11/12/16 19:45 11/12/16 19:45 Labs: Abnormal Lab Results - Last 24 Hours (Table) 11/12/16 11/12/16 11/12/16 Range/Units 06:15 06:15 14:45 Neutrophils # (1.3-7.7) k/uL Lymphocytes # (1.0-4.8) k/uL Glucose 104 H (74-99) mg/dL POC Glucose (mg/dL) 117 H (75-99) mg/dL AST 38 H (14-36) U/L ALT 62 H (9-52) U/L Total Protein 6.2 L (6.3-8.2) g/dL TSH <0.015 L (0.465-4.680) mIU/L 11/12/16 11/12/16 11/12/16 Range/Units 19:17 19:45 19:45 Neutrophils # 9.3 H (1.3-7.7) k/uL Lymphocytes # 0.7 L (1.0-4.8) k/uL Glucose 120 H (74-99) mg/dL POC Glucose (mg/dL) 122 H (75-99) mg/dL AST (14-36) U/L ALT 70 H (9-52) U/L Total Protein (6.3-8.2) g/dL TSH (0.465-4.680) mIU/L Assessment and Plan Plan: Detailed assessment and evaluation as above. #Acute lethargy and unresponsiveness -Could be due to seizure, versus symptomatic bradycardia, versus antiepileptics , less likely opioids as her last dose was long time ago -Loading Keppra was given -Pending CT head -Pending evaluation by cardiology for possible pacing need, it was noted from the chart that primary team were aware of her bradycardia and intermittent dizziness on floor -Neurology evaluation would be needed #Atypical chest pain -Looks like it's a current problem during the patient can't hospital stay, could be currently exacerbated by the brief round of CPR by nurses -IV Tylenol is given, Lidoderm patch can be considered -Although PE is less likely, will order D-Dimer given reports tht she has been having chest pain even prior to the code. If it is high, we may need to do CTA chest especially with her respiratory alkalosis as bellow. #Respiratory alkalosis -Suggesting possible seizure activity -Continue to monitor in the ICU -Stat chest x-ray More than 45 minutes was spent with this critically ill patient Time with Patient: Greater than 30
[2016-11-12 20:40] LABS: Glucose,Whole Blood 117 mg/dL (75-99)
--- NOTE | 2016-11-12 20:44 | CT ---
EXAMINATION TYPE: CT brain wo con DATE OF EXAM: 11/12/2016 COMPARISON: 11/07/2016 INDICATION: Patient unable to give history. Patient suddenly became unresponsive. DLP: 742.7 mGycm, Automated exposure control for dose reduction was used. CONTRAST: None CT of the brain is performed utilizing 3 mm thick sections through the posterior fossa and 3 mm thick sections through the remaining calvarium. Study is performed within 24 hours of arrival to the hosp [facility]. No abnormal hyperdensity is present to suggest an acute intracranial hemorrhage. There is a 0.9 cm hypodensity in the left centrum semiovale superior to the lateral ventricle. This w as present previously. This is not a simple cyst. This does not appear to enhance on the postcontrast imaging of the 2016 CTA brain. 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 No acute infarcts are evident. Ventricles and sulci are appropriate for the patient age. Paranasal sinuses and mastoid air cells within the [id number] are clear. IMPRESSIONS: 1. 0.9 cm hypodensity left seventh posterior centrum semiovale of uncertain etiology, present previ ously. 2. No acute intracranial changes from prior recent examinations.
[2016-11-12] MEDS ORDERED: SODIUM CHLORIDE 0.9% 500 ML IV ONE (20:47)
[2016-11-12] MEDS ORDERED: ATROPINE SULFATE 0.1 MG/ML 10ML SYRINGE IV STA (20:50)
[2016-11-12] MEDS ORDERED: SODIUM CHLORIDE 0.9% 1,000 ML IV ONE (21:21)
[2016-11-12] MEDS ORDERED: RX INFO: IV CONTRAST WAS GIVEN 1 EACH MISC MISCELLANE PRN (21:25)
[2016-11-12] MEDS: KETOROLAC 30 MG/ML 1 ML VIAL IVP PRN (21:44)
[2016-11-12] MEDS: HYOSCYAMINE ELIXIR 250 MCG/10 ML BTL PO SCH (21:56)
[2016-11-12] MEDS: LIDOCAINE 5% PATCH TOPICAL SCH (22:01)
[2016-11-12] MEDS: SODIUM CHLORIDE 0.9% 1,000 ML IV SCH (22:03)
--- NOTE | 2016-11-12 22:57 | P.PN ---
Subjective Principal diagnosis: atypical migraine, bradycardia INterval Update:38-40 November 12, 2016 / 1745 hrs: Provider arrived to round on the patient and noted that the patient's monitor worker indicated that the patient's heart rate was at 38-41 bpm. Patient's rhythm was consistently sinus bradycardia. Spoke to patient's nurse who stated that cardiology has been consulted for the patient twice today and she was waiting for a call back. Provider went to the patient's room, checked patient' s vital signs with nurse. Patient stated that she had chest pain. Patient was given Fioricet 2 tablets by nurse at providers direction. Provider paged patient 's admitting physician. Provider verified no beta blockers in use, stopped all benzodiazepines and had nursing staff stop the MS Contin as well in the patient' s MAR. Dr. Cheney was biodiesel operations manager for Dr Hood and provider spoke to him via phone providing patient status and information. Physician requested cardiology be contacted and given his cell phone number to be contacted directly to speak to him. Dr. Kim was nearby and assisted with transferring the patient to the 6th floor for increased level of care. Patient was monitored thoroughout until turned over to 6th floor nursing staff. Provider went to 6th floor and provided information to nursing staff to transition patient care. November 11, 2016: Patient is a 36-year-old female is being followed by neurology for intractable headache. Patient starting having a headache approximately 5 days ago which she describes a severe throbbing pain with gradual onset. Pain was originally right-sided but has since generalized. Patient does reportedly take Fioricet at home but did not help. Following day, patient started noticing some weakness on her right side. She is brought to the emergency room. She was given analgesics for headache and it slightly improved, but now is increasing per the patient. Today she reports that is a 7--8 out of [address] scan of the brain was normal. CT angiogram of the brain and neck were both normal. Her CMP and CBC were normal. At time of admission her Depakote level was subtherapeutic. She does report a history of seizure. She was having seizure recurring frequently until she was placed on Keppra 1000 mg twice a day. Depakote was stopped. She is still having possible breakthrough seizure like behavior. When she was informed that her Dialudid was decreased to Q6hrs, within an hour, the patient had "seizure like activity" involving extremity "jerking" per nursing. She then stated that she needed ativan beacause that what she normally gets when she has seizures like that. She reports significant dizziness, occasional syncope whenever she stands up too fast. Cardiology has been involved and consulted. Patient was started on Vimpat previously and increased by Dr oliveira via phone prior to my arrival to 100 mg, BID. Prior to entering the room, I observed the patient from the young verbally interacting with family freely. Just prior to the nurse entering the room, patient repositioned herself and became less interactive, appearing to conceal her previous ability to engage. I entered, began talking to the patient and confronted her with the observations. The patient further attempted to deny her behavior. Her room mate stated "you should see her in the room when you are not here. She is just fine." Today the patient is supine in bed resting, alert and oriented 3 and in no acute distress. Patient immediately began reiterating how she did not feel well and was not doing well unless she had her Dilaudid on a regular basis for her headache and pain. I spoke to the patient regarding her Fioricet use. Objective - Vital Signs Vital signs: Vital Signs Temp 98.5 F 11/12/16 19:00 Pulse 42 L 11/12/16 19:00 Resp 12 11/12/16 19:00 BP 124/81 11/12/16 19:00 Pulse Ox 98 11/12/16 18:12 Intake & Output 11/12/16 11/12/16 11/13/16 06:59 18:59 06:59 Intake Total 225 Output Total 200 1000 Balance 25 -1000 Intake: Intake, IV Titration 200 Amount methylPREDNISolone SOD 200 SUCC 250 mg In Sodium Chloride 0.9% 100 ml @ 100 mls/hr IVPB Q8H SEEMA Rx#:[id number] Oral 25 Output: Urine 200 1000 Other: Voiding Method Toilet # Voids 2 2 - Exam Constitutional: AOx3, cooperative HEENT: NC/AT, no facial asymmetry is seen. Throat: Supple, no masses Respiratory: No increased work of breathing Cardiac: Sinus Bradycardia on telemetry monitoring, stated substernal chest pain. GI: non tender, non distended Musculoskeletal: Hydrology Technician strengths are unequal bilaterally 4/5 on the right and 5/ 5 on the left. Lower extremity strengths are unequal 4/5 on the right and 5/5 on the left. Neurological: CN II-XII in tact, patient was AOx3, speech and language are normal, no seizure activity note on physical exam. Sensation was abnormal with decreased sensity to light touch on the right. Integementary: no rash, no erythema Psychiatric: depressed, withdrawn - Labs CBC & Chem 7: 11/12/16 19:45 11/12/16 19:45 Labs: Abnormal Lab Results - Last 24 Hours (Table) 11/12/16 11/12/16 11/12/16 Range/Units 06:15 06:15 14:45 Neutrophils # (1.3-7.7) k/uL Lymphocytes # (1.0-4.8) k/uL D-Dimer (<0.60) mg/L FEU ABG pH (7.35-7.45) ABG pCO2 (35-45) mmHg ABG HCO3 (21-25) mmol/L ABG Total CO2 (19-24) mmol/L ABG O2 Saturation (94-97) % Glucose 104 H (74-99) mg/dL POC Glucose (mg/dL) 117 H (75-99) mg/dL AST 38 H (14-36) U/L ALT 62 H (9-52) U/L Total Protein 6.2 L (6.3-8.2) g/dL TSH <0.015 L (0.465-4.680) mIU/L 11/12/16 11/12/16 11/12/16 Range/Units 19:17 19:45 19:45 Neutrophils # 9.3 H (1.3-7.7) k/uL Lymphocytes # 0.7 L (1.0-4.8) k/uL D-Dimer (<0.60) mg/L FEU ABG pH (7.35-7.45) ABG pCO2 (35-45) mmHg ABG HCO3 (21-25) mmol/L ABG Total CO2 (19-24) mmol/L ABG O2 Saturation (94-97) % Glucose 120 H (74-99) mg/dL POC Glucose (mg/dL) 122 H (75-99) mg/dL AST (14-36) U/L ALT 70 H (9-52) U/L Total Protein (6.3-8.2) g/dL TSH (0.465-4.680) mIU/L 11/12/16 11/12/16 11/12/16 Range/Units 19:45 20:32 20:39 Neutrophils # (1.3-7.7) k/uL Lymphocytes # (1.0-4.8) k/uL D-Dimer 0.78 H (<0.60) mg/L FEU ABG pH 7.52 H (7.35-7.45) ABG pCO2 34 L (35-45) mmHg ABG HCO3 28 H (21-25) mmol/L ABG Total CO2 29 H (19-24) mmol/L ABG O2 Saturation 99.0 H (94-97) % Glucose (74-99) mg/dL POC Glucose (mg/dL) 117 H (75-99) mg/dL AST (14-36) U/L ALT (9-52) U/L Total Protein (6.3-8.2) g/dL TSH (0.465-4.680) mIU/L Assessment and Plan (1) Atypical migraine Status: Acute (2) Headache Status: Acute (3) Right sided weakness Status: Acute Plan: On exam, the patient's vitals were known to show decreased pulse with blood pressure 114/72, pulse of 43, O2 sat are 98% on room air with a temperature 97.8 Fahrenheit today on contact. quality assurance monitor noted sinus bradycardia. Patient did state that she had substernal chest pain. Admitting physician and cardiology were contacted as noted in HPI. Patient was transferred to 6th floor for increased level of care. Cardiology on consult and will be dilating the patient. Patient's current status is cardiac in etiology. Status: Neurology will continue to follow and provide updates as needed or warranted related to her atypical migraine, seizure. Both conditions were stable today with the exception of the noted changes in her cardiac status. I discussed the patient's pertinent medical information with Dr. Oliveira. He agrees with the plan of care as implemented.
[2016-11-12 23:19] LABS: Appearance,Urine Clear (Clear); Bilirubin,Urine Negative (Negative); Glucose,Urine (UA) Negative (Negative); Ketones,Urine Negative (Negative); Leukocyte Esterase,Urine Large (Negative); Mucus,Urine Rare /hpf; Nitrite,Urine Negative (Negative); Particle Count 8452; Protein,Urine Negative (Negative); RBC,Urine 1 /hpf (0-5); Specific Gravity,Urine 1.012 (1.001-1.035); Squamous Epithelial Cell,Urine <1 /hpf (0-4); UA Billing (MACRO vs. MICRO) MICRO; Urobilinogen,Urine <2.0 mg/dL (<2.0); WBC,Urine 57 /hpf (0-5)
[2016-11-13] MEDS: KETOROLAC 30 MG/ML 1 ML VIAL IVP PRN ×4 (01:30→17:50)
--- NOTE | 2016-11-13 01:59 | CT ---
EXAM: CT Angiography Chest With Intravenous Contrast CLINICAL HISTORY: chest pain TECHNIQUE: Axial computed tomographic angiography images of the chest with intravenous contrast using pulmonary embolism protocol. CTDI is 3.2, 51. 4, 5.6 mGy and DLP is 258.4 mGy-cm. This CT exam was performed using one or more of the following dose reduction techniques: automated exposure control, adjustment of the mA and/or kV according to patient size, and/or use of iterative reconstruction technique. MIP reconstructed images were created and reviewed. COMPARISON: 01/16/2016 FINDINGS: Pulmonary arteries: No pulmonary embolus. Aorta: Stable ectasia of the root of the thoracic aorta. No thoracic aortic aneurysm. Inferior vena cava: Reflux of contrast into the inferior vena cava is suggestive of right heart strain. Lungs: Unremarkable. No mass. No consolidation. Mild bilateral dependent atelectasis. Pleural space: Unremarkable. No significant effusion. No pneumothorax. Heart: See above. Bones/joints: No acute fracture. Soft tissues: Unremarkable. Lymph nodes: Unremarkable. No enlarged lymph nodes. IMPRESSION: No pulmonary embolus.
[2016-11-13 04:58] LABS: Basophils % (A) 0 %; CH 31.9; CHCM 34.4; Eosinophils % (A) 0 %; HCT 36.6 % (34.0-46.0); HDW 2.06; HGB 12.3 gm/dL (11.4-16.0); Luc # (Auto) 0.05; Luc % (Auto) 1; Lymphocytes # (A) 0.7 k/uL (1.0-4.8); Lymphocytes % (A) 8 %; MCH 31.3 pg (25.0-35.0); MCHC 33.6 g/dL (31.0-37.0); MCV 93.1 fL (80.0-100.0); Mean Platelet Volume 10.2; Monocytes # (A) 0.2 k/uL (0-1.0); Monocytes % (A) 2 %; Neutrophils # (A) 7.7 k/uL (1.3-7.7); Neutrophils % (A) 89 %; RBC 3.93 m/uL (3.80-5.40); RDW 13.3 % (11.5-15.5); WBC 8.6 k/uL (3.8-10.6); WBC (Perox) 9.36
[2016-11-13 05:08] LABS: ALT 59 U/L (9-52); AST 21 U/L (14-36); Alkaline Phosphatase 52 U/L (38-126); Anion Gap 8 mmol/L; Blood Urea Nitrogen 12 mg/dL (7-17); Calcium 9.1 mg/dL (8.4-10.2); Carbon Dioxide 27 mmol/L (22-30); Chloride 107 mmol/L (98-107); Glucose 110 mg/dL (74-99); Non-African American GFR(MDRD) >60 (>60 ml/min/1.73 sqM); Phosphorous 4.4 mg/dL (2.5-4.5); Potassium 3.9 mmol/L (3.5-5.1); Sodium 142 mmol/L (137-145); Total Bilirubin 0.2 mg/dL (0.2-1.3); Total Protein 5.5 g/dL (6.3-8.2)
[2016-11-13] MEDS: PANTOPRAZOLE 40 MG TABLET PO SCH ×2 (09:59→15:32)
[2016-11-13] MEDS: HYOSCYAMINE ELIXIR 250 MCG/10 ML BTL PO SCH ×2 (10:00→15:27)
[2016-11-13] MEDS: ONDANSETRON 4 MG/2 ML VIAL IVP PRN ×2 (10:03→17:58)
[2016-11-13] MEDS: BACLOFEN 10 MG TAB PO SCH ×2 (10:06→19:53)
[2016-11-13] MEDS: LEVOTHYROXINE IVP 100 MCG/5 ML VIAL IV SCH (10:06)
[2016-11-13] MEDS: ENOXAPARIN 40 MG/0.4 ML SYRINGE SQ SCH (10:06)
[2016-11-13] MEDS: LIDOCAINE 5% PATCH TOPICAL SCH (10:12)
[2016-11-13] MEDS: NICOTINE 14MG/24HR PATCH TRANSDERM SCH (10:15)
--- NOTE | 2016-11-13 11:15 | P.CNPUL ---
History of Present Illness Consult date: 11/13/16 Chief complaint: Headache, bradycardia History of present illness: Patient is a 36-year-old female is being followed by neurology for intractable headache. Patient starting having a headache approximately 5 days ago which she describes a severe throbbing pain with gradual onset. Pain was originally right-sided but has since generalized. Patient does reportedly take Fioricet at home but did not help. Following day, patient started noticing some weakness on her right side. She is brought to the emergency room. She was given analgesics for headache and it slightly improved, but now is increasing per the patient. Today she reports that is a 7--8 out of [address] scan of the brain on admission was normal. CT angiogram of the brain and neck were both normal. Her CMP and CBC were normal. At time of admission her Depakote level was subtherapeutic. She does report a history of seizure. She was having seizure recurring frequently until she was placed on Keppra 1000 mg twice a day. Depakote was stopped. She is still having possible breakthrough seizure like behavior. When she was informed that her Dialudid was decreased to Q6hrs, within an hour, the patient had "seizure like activity" involving extremity "jerking" per nursing. For now, the patient is receiving a combination of IV Solu-Medrol, Fioricet and Toradol for migraine. The patient is also on Keppra for seizure activity. Yesterday, a CODE BLUE was called on this patient around 7:30 PM. The hospitalist air traffic control manager came up to the scene. The patient was found to be moaning. She had pulses. Apparently she did not lose any pulses. She was given a brief CPR due to concerns of NSAID the carotid pulse and then the CPR was discontinued. Following that, the patient was found to be bradycardic and the heart rate was in the low 40s and later on his lower 30s.. Her blood pressure systolic was 140 with diastolic blood pressure of 80. Her respiratory rate was in the low 10. She was lethargic and she was complaining of chest pain. Her 12 -lead EKG showed sinus bradycardia. The patient had a stat CAT scan of the brain that showed 0.9 cm hypodensity in the left seventh posterior centrum semiovale of an uncertain etiology and this was present previously. No other acute intracranial process was seen. The chest x-ray showed no acute cardio pulmonary process. Furthermore CT angios the chest was done that showed no evidence of any pulmonary embolism in the lung parenchyma was clean and intact. The echocardiogram that was done a few days back showed a normal ejection fraction with a EF around 60-65%. No other acute abnormalities was noted. Her latest EEG was within normal limits and was done on 11/09/2016. 2 sets of cardiac enzymes have been negative. The urine drug screen that was done yesterday showed positive barbiturates and marijuana and opiates. The free T4 that was done on 11/12/2016 showed a level of 0.78. TSH was less than 0.015. Stat blood work was also unremarkable. Radiology was also consulted regarding this bradycardia. Clinically, the patient is not moving her right lower extremity but moved to her left lower extremity spontaneously. Her current heart rate is 32 bpm. Blood pressure is stable. Urine output is stable. No respiratory distress. No chest pain. She is being monitored for cardiac rhythm. She was placed on Levsin elixir 5 ML's by mouth every [address] Enciso's recommendation. The valproic acid from 11/07 was subtherapeutic at 19 and the Keppra level has not been checked. Review of Systems Full review of system was done and the positive findings are almost above in history of present illness Past Medical History Past Medical History: Blood Disorder, CVA/TIA, Seizure Disorder Additional Past Medical History / Comment(s): migraines, IBS, IBD History of Any Multi-Drug Resistant Organisms: MRSA Date of last positivie culture/infection: 2005 MDRO Source:: leg Past Surgical History: Adenoidectomy, Hysterectomy Additional Past Surgical History / Comment(s): several abd sx(exp lap-cyst removed from ovaries, kidney , from intestinal wall. OCCIPITAL NERVE BLOCK, RT KNEE MENISCUS REPAIR AND CARTILAGE REMOVED Past Anesthesia/Blood Transfusion Reactions: Postoperative Nausea & Vomiting ( PONV) Past Psychological History: Anxiety, PTSD Smoking Status: Unknown if ever smoked Past Alcohol Use History: Rare Past Drug Use History: None Reported - Past Family History Father Additional Family Medical History / Comment(s): LUPUS, FATHERS MOM, AUNT HAD LUPUS Mother Family Medical History: Osteoarthritis (OA), Thyroid Disorder Additional Family Medical History / Comment(s): GOITER, BOARDERLINE DIABETIC, KIDNEY STONE,GALLSTONES Medications and Allergies Home Medications Medication Instructions Recorded Confirmed Type levETIRAcetam [Keppra] 1,000 mg PO Q12H 02/10/15 11/08/16 History Butalb/APAP/Caff 50-325-40Mg 1 tab PO TID PRN 01/17/16 11/08/16 History [Fioricet 50-325-40] diphenhydrAMINE HCL [Benadryl] 25 mg PO HS PRN 01/17/16 11/08/16 History Baclofen [Lioresal] 20 mg PO BID 03/01/16 11/08/16 History Dicyclomine [Bentyl] 20 mg PO TID PRN 03/01/16 11/08/16 History Divalproex [Depakote] 500 mg PO BID 03/01/16 11/08/16 History Ergocalciferol [Vitamin D2] 50,000 unit PO Q7D 03/01/16 11/08/16 History clonazePAM [KlonoPIN] 1 mg PO BID 03/01/16 11/08/16 History Docusate [Colace] 100 mg PO DAILY PRN 11/08/16 11/08/16 History Allergies Allergy/AdvReac Type Severity Reaction Status Date / Time Gadolinium-Containing Allergy Unknown Verified 11/07/16 22:48 Contrast Medi latex Allergy Unknown Verified 11/07/16 22:41 prochlorperazine Allergy Unknown Verified 11/07/16 22:41 [From Compazine] aspirin AdvReac Unknown Verified 11/07/16 22:41 naproxen AdvReac Unknown Verified 11/07/16 22:41 Physical Exam Vitals: Vital Signs Temp Pulse Pulse Pulse Resp BP BP 11/13/16 10:00 32 L 21 111/76 11/13/16 09:00 34 L 28 H 135/79 11/13/16 08:00 31 L 20 143/79 11/13/16 06:30 32 L 24 137/73 11/13/16 06:00 31 L 21 138/82 11/13/16 05:30 32 L 21 136/82 11/13/16 05:00 31 L 27 H 141/80 11/13/16 04:30 39 L 17 135/74 11/13/16 04:00 97.9 F 35 L 37 L 42 L 20 124/73 11/13/16 03:30 34 L 19 125/76 11/13/16 03:00 36 L 18 123/73 11/13/16 02:50 36 L 20 123/73 11/13/16 02:40 36 L 18 121/77 11/13/16 02:30 37 L 18 121/77 11/13/16 02:20 36 L 18 121/77 11/13/16 02:10 33 L 16 146/85 11/13/16 02:00 33 L 24 146/85 11/13/16 01:50 33 L 21 146/85 11/13/16 01:40 34 L 53 H 141/87 11/13/16 01:39 33 L 10 L 141/87 11/13/16 01:10 39 L 25 H 11/13/16 01:00 32 L 28 H 141/87 11/13/16 00:50 36 L 18 119/75 11/13/16 00:40 36 L 20 119/75 11/13/16 00:30 38 L 19 138/87 11/13/16 00:20 40 L 41 H 138/87 11/13/16 00:10 33 L 19 147/87 11/13/16 00:00 38 L 37 L 42 L 13 147/87 11/12/16 23:50 43 L 17 122/85 11/12/16 23:40 37 L 12 122/85 11/12/16 23:30 43 L 16 122/85 11/12/16 23:20 37 L 20 122/85 11/12/16 23:10 37 L 16 132/79 11/12/16 23:00 34 L 15 132/79 11/12/16 22:50 36 L 27 H 144/83 11/12/16 22:40 36 L 20 144/83 11/12/16 22:30 35 L 19 119/81 11/12/16 22:20 36 L 26 H 119/81 11/12/16 22:10 38 L 23 145/89 11/12/16 22:00 98.1 F 38 L 19 145/89 11/12/16 21:50 36 L 20 129/74 11/12/16 21:40 37 L 32 H 129/74 11/12/16 21:30 0 L 21 133/82 11/12/16 21:20 95 34 H 133/82 11/12/16 21:10 113 H 34 H 133/82 11/12/16 21:00 63 55 H 133/82 11/12/16 20:50 50 L 21 133/82 11/12/16 20:40 41 L 20 133/82 11/12/16 20:34 51 L 24 11/12/16 19:00 98.5 F 42 L 12 11/12/16 18:12 97.8 F 43 L 16 11/12/16 12:05 97 F L 120/81 BP BP Pulse Ox 11/13/16 10:00 100 11/13/16 09:00 11/13/16 08:00 11/13/16 06:30 11/13/16 06:00 11/13/16 05:30 11/13/16 05:00 11/13/16 04:30 11/13/16 04:00 11/13/16 03:30 11/13/16 03:00 11/13/16 02:50 11/13/16 02:40 11/13/16 02:30 11/13/16 02:20 11/13/16 02:10 11/13/16 02:00 11/13/16 01:50 11/13/16 01:40 11/13/16 01:39 11/13/16 01:10 11/13/16 01:00 11/13/16 00:50 11/13/16 00:40 11/13/16 00:30 11/13/16 00:20 11/13/16 00:10 11/13/16 00:00 11/12/16 23:50 11/12/16 23:40 11/12/16 23:30 11/12/16 23:20 11/12/16 23:10 11/12/16 23:00 11/12/16 22:50 11/12/16 22:40 11/12/16 22:30 11/12/16 22:20 11/12/16 22:10 11/12/16 22:00 11/12/16 21:50 11/12/16 21:40 11/12/16 21:30 11/12/16 21:20 11/12/16 21:10 11/12/16 21:00 11/12/16 20:50 100 11/12/16 20:40 11/12/16 20:34 11/12/16 19:00 124/81 11/12/16 18:12 114/72 98 11/12/16 12:05 120/79 122/76 Intake and Output 11/12/16 11/13/16 11/13/16 22:59 06:59 14:59 Intake Total 500 600 Output Total 200 500 Balance 300 100 Intake: IV 500 600 Sodium Chloride 0.9% 1, 600 000 ml @ 100 mls/hr IV . Q10H [facility] Rx#:[id number] Sodium Chloride 0.9% 500 500 ml @ 999 mls/hr IV .Q31M ONE Rx#:[id number] Output: Urine 200 500 Other: Voiding Method Indwelling Catheter Weight 56.5 kg Head exam was generally normal. There was no scleral icterus or corneal arcus. Mucous membranes were moist. There is facial asymmetry with some right-sided facial weakness.Neck was supple and without jugular venous distension, thyromegaly, or carotid bruits. Carotids were easily palpable bilaterally. There was no adenopathy.Lungs were clear to auscultation and percussion, and with normal diaphragmatic excursion. No wheezes or rales were noted. Cardiac exam revealed the PMI to be normally situated and sized. The rhythm was regular and no extrasystoles were noted during several minutes of auscultation. The first and second heart sounds were normal and physiologic splitting of the second heart sound was noted. There were no murmurs, rubs, clicks, or gallops. Abdominal exam revealed normal bowel sounds. The abdomen was soft, non-tender, and without masses, organomegaly, or appreciable enlargement of the abdominal aorta.Examination of the extremities revealed easily palpable radial, femoral and pedal pulses. There was no cyanosis, clubbing or edema. Please refer to neurologic exam not by neurology. The patient has some right lower extremity weakness Results - Laboratory Findings CBC and BMP: 11/13/16 04:24 11/13/16 04:24 ABG ABG pH 7.52 (7.35-7.45) H 11/12/16 19:45 ABG pCO2 34 mmHg (35-45) L 11/12/16 19:45 ABG pO2 100 mmHg (83-108) 11/12/16 19:45 ABG O2 Saturation 99.0 % (94-97) H 11/12/16 19:45 PT/INR, D-dimer PT 10.4 sec (9.0-12.0) 11/07/16 22:45 INR 1.0 (<1.2) 11/07/16 22:45 D-Dimer 0.78 mg/L FEU (<0.60) H 11/12/16 20:32 Abnormal lab findings: Abnormal Labs 11/07/16 11/09/16 11/09/16 22:45 06:50 06:50 WBC Neutrophils # Lymphocytes # 0.7 L D-Dimer ABG pH ABG pCO2 ABG HCO3 ABG Total CO2 ABG O2 Saturation Chloride 110 H Carbon Dioxide 21 L BUN 4 L Glucose 116 H POC Glucose (mg/dL) AST ALT Total Protein 5.9 L 5.8 L Albumin TSH Ur Leukocyte Esterase Urine WBC Urine Mucus Urine Opiates Screen Ur Barbiturates Screen U Marijuana (THC) Screen 11/10/16 11/10/16 11/11/16 06:53 06:53 06:42 WBC 12.6 H 12.4 H Neutrophils # 11.5 H 10.0 H Lymphocytes # 0.8 L D-Dimer ABG pH ABG pCO2 ABG HCO3 ABG Total CO2 ABG O2 Saturation Chloride 108 H Carbon Dioxide BUN Glucose 109 H POC Glucose (mg/dL) AST ALT Total Protein 5.9 L Albumin TSH Ur Leukocyte Esterase Urine WBC Urine Mucus Urine Opiates Screen Ur Barbiturates Screen U Marijuana (THC) Screen 11/11/16 11/12/16 11/12/16 06:42 06:15 06:15 WBC Neutrophils # Lymphocytes # D-Dimer ABG pH ABG pCO2 ABG HCO3 ABG Total CO2 ABG O2 Saturation Chloride Carbon Dioxide BUN Glucose 104 H POC Glucose (mg/dL) AST 38 H ALT 62 H Total Protein 5.7 L 6.2 L Albumin TSH <0.015 L Ur Leukocyte Esterase Urine WBC Urine Mucus Urine Opiates Screen Ur Barbiturates Screen U Marijuana (THC) Screen 11/12/16 11/12/16 11/12/16 14:45 19:17 19:45 WBC Neutrophils # 9.3 H Lymphocytes # 0.7 L D-Dimer ABG pH ABG pCO2 ABG HCO3 ABG Total CO2 ABG O2 Saturation Chloride Carbon Dioxide BUN Glucose POC Glucose (mg/dL) 117 H 122 H AST ALT Total Protein Albumin TSH Ur Leukocyte Esterase Urine WBC Urine Mucus Urine Opiates Screen Ur Barbiturates Screen U Marijuana (THC) Screen 11/12/16 11/12/16 11/12/16 19:45 19:45 20:00 WBC Neutrophils # Lymphocytes # D-Dimer ABG pH 7.52 H ABG pCO2 34 L ABG HCO3 28 H ABG Total CO2 29 H ABG O2 Saturation 99.0 H Chloride Carbon Dioxide BUN Glucose 120 H POC Glucose (mg/dL) AST ALT 70 H Total Protein Albumin TSH Ur Leukocyte Esterase Urine WBC Urine Mucus Urine Opiates Screen Detected H Ur Barbiturates Screen Detected H U Marijuana (THC) Screen Detected H 11/12/16 11/12/16 11/12/16 20:32 20:39 22:20 WBC Neutrophils # Lymphocytes # D-Dimer 0.78 H ABG pH ABG pCO2 ABG HCO3 ABG Total CO2 ABG O2 Saturation Chloride Carbon Dioxide BUN Glucose POC Glucose (mg/dL) 117 H AST ALT Total Protein Albumin TSH Ur Leukocyte Esterase Large H Urine WBC 57 H Urine Mucus Rare H Urine Opiates Screen Ur Barbiturates Screen U Marijuana (THC) Screen 11/13/16 11/13/16 04:24 04:24 WBC Neutrophils # Lymphocytes # 0.7 L D-Dimer ABG pH ABG pCO2 ABG HCO3 ABG Total CO2 ABG O2 Saturation Chloride Carbon Dioxide BUN Glucose 110 H POC Glucose (mg/dL) AST ALT 59 H Total Protein 5.5 L Albumin 3.4 L TSH Ur Leukocyte Esterase Urine WBC Urine Mucus Urine Opiates Screen Ur Barbiturates Screen U Marijuana (THC) Screen - Diagnostic Findings CT scan - chest: image reviewed Assessment and Plan Plan: Assessment 1 acute sinus bradycardia without any underlying clear identifiable cause. Rule out severe cholinergic reaction contributing to this bradyarrhythmia. Rule out Keppra toxicity knowing that at the higher level can cause bradyarrhythmias. Echocardiogram is within normal. Cardiac as of that within normal. Free T4 level is within normal. 2 complicated severe migraine headache 3 right-sided weakness possibly related to complicated migraine 4 PTSD 5 generalized anxiety disorder 6 seizure disorder 7 muscular skeletal chest wall pain over the anterior chest related to a recent CPR. Plan Cardiology consultation. Stat Keppra levels. Monitor the cardiac rhythm needed ICU. Continue Levsin. Hemodynamically stable. Will follow.
--- NOTE | 2016-11-13 12:30 | P.PN ---
Subjective Physical below under assessment and plan for interval history Objective - Vital Signs Vital signs: Vital Signs Temp 97.7 F 11/13/16 08:00 Pulse 34 L 11/13/16 11:00 Resp 16 11/13/16 11:00 BP 134/78 11/13/16 11:00 Pulse Ox 100 11/13/16 11:00 Intake & Output 11/12/16 11/13/16 11/13/16 18:59 06:59 18:59 Intake Total 1100 400 Output Total 1000 700 315 Balance -1000 400 85 Weight 56.5 kg Intake: IV 1100 400 Sodium Chloride 0.9% 1, 600 400 000 ml @ 100 mls/hr IV . Q10H [facility] Rx#:[id number] Sodium Chloride 0.9% 500 500 ml @ 999 mls/hr IV .Q31M ONE Rx#:[id number] Output: Urine 1000 700 315 Other: Voiding Method Indwelling Catheter Indwelling Catheter # Voids 2 - Exam General: The patient is awake and alert, in no distress Eye: there is normal conjunctiva bilaterally. Neck: The neck is supple, there is no JVD. Cardiovascular: Normal S1-S2, no S3-S4, no murmurs. Respiratory: Lungs clear to auscultation bilaterally Gastrointestinal: Abdomen is soft, nontender Musculoskeletal: There is no pedal edema. Neurological:. Speech is normal. Skin: Skin is warm and dry - Labs CBC & Chem 7: 11/13/16 04:24 11/13/16 04:24 Labs: Abnormal Lab Results - Last 24 Hours (Table) 11/12/16 11/12/16 11/12/16 Range/Units 06:15 14:45 19:17 Neutrophils # (1.3-7.7) k/uL Lymphocytes # (1.0-4.8) k/uL D-Dimer (<0.60) mg/L FEU ABG pH (7.35-7.45) ABG pCO2 (35-45) mmHg ABG HCO3 (21-25) mmol/L ABG Total CO2 (19-24) mmol/L ABG O2 Saturation (94-97) % Glucose (74-99) mg/dL POC Glucose (mg/dL) 117 H 122 H (75-99) mg/dL ALT (9-52) U/L Total Protein (6.3-8.2) g/dL Albumin (3.5-5.0) g/dL TSH <0.015 L (0.465-4.680) mIU/L Ur Leukocyte Esterase (Negative) Urine WBC (0-5) /hpf Urine Mucus (None) /hpf Urine Opiates Screen (NotDetected) Ur Barbiturates Screen (NotDetected) U Marijuana (THC) Screen (NotDetected) 11/12/16 11/12/16 11/12/16 Range/Units 19:45 19:45 19:45 Neutrophils # 9.3 H (1.3-7.7) k/uL Lymphocytes # 0.7 L (1.0-4.8) k/uL D-Dimer (<0.60) mg/L FEU ABG pH 7.52 H (7.35-7.45) ABG pCO2 34 L (35-45) mmHg ABG HCO3 28 H (21-25) mmol/L ABG Total CO2 29 H (19-24) mmol/L ABG O2 Saturation 99.0 H (94-97) % Glucose 120 H (74-99) mg/dL POC Glucose (mg/dL) (75-99) mg/dL ALT 70 H (9-52) U/L Total Protein (6.3-8.2) g/dL Albumin (3.5-5.0) g/dL TSH (0.465-4.680) mIU/L Ur Leukocyte Esterase (Negative) Urine WBC (0-5) /hpf Urine Mucus (None) /hpf Urine Opiates Screen (NotDetected) Ur Barbiturates Screen (NotDetected) U Marijuana (THC) Screen (NotDetected) 11/12/16 11/12/16 11/12/16 Range/Units 20:00 20:32 20:39 Neutrophils # (1.3-7.7) k/uL Lymphocytes # (1.0-4.8) k/uL D-Dimer 0.78 H (<0.60) mg/L FEU ABG pH (7.35-7.45) ABG pCO2 (35-45) mmHg ABG HCO3 (21-25) mmol/L ABG Total CO2 (19-24) mmol/L ABG O2 Saturation (94-97) % Glucose (74-99) mg/dL POC Glucose (mg/dL) 117 H (75-99) mg/dL ALT (9-52) U/L Total Protein (6.3-8.2) g/dL Albumin (3.5-5.0) g/dL TSH (0.465-4.680) mIU/L Ur Leukocyte Esterase (Negative) Urine WBC (0-5) /hpf Urine Mucus (None) /hpf Urine Opiates Screen Detected H (NotDetected) Ur Barbiturates Screen Detected H (NotDetected) U Marijuana (THC) Screen Detected H (NotDetected) 11/12/16 11/13/16 11/13/16 Range/Units 22:20 04:24 04:24 Neutrophils # (1.3-7.7) k/uL Lymphocytes # 0.7 L (1.0-4.8) k/uL D-Dimer (<0.60) mg/L FEU ABG pH (7.35-7.45) ABG pCO2 (35-45) mmHg ABG HCO3 (21-25) mmol/L ABG Total CO2 (19-24) mmol/L ABG O2 Saturation (94-97) % Glucose 110 H (74-99) mg/dL POC Glucose (mg/dL) (75-99) mg/dL ALT 59 H (9-52) U/L Total Protein 5.5 L (6.3-8.2) g/dL Albumin 3.4 L (3.5-5.0) g/dL TSH (0.465-4.680) mIU/L Ur Leukocyte Esterase Large H (Negative) Urine WBC 57 H (0-5) /hpf Urine Mucus Rare H (None) /hpf Urine Opiates Screen (NotDetected) Ur Barbiturates Screen (NotDetected) U Marijuana (THC) Screen (NotDetected) Microbiology - Last 24 Hours (Table) 11/12/16 22:20 Urine Culture - Preliminary Urine,Catheterized Assessment and Plan Plan: #1 severe migraine headache, Fioricet prn. #2 right sided weakness: Possibly related to her migraine headache. Neurology has added steroids. MRI of the brain and EEG unremarkable. Computed tomography scan of the brain negative CTA of the neck negative Echo shows an EF of 60-65%. #3 episodes of palpitation and dizziness at this time will proceed was telemetry. Echo shows EF of 60-65%. #4 tobacco abuse patient was counseled to quit smoking at this time she will have nicotine patch 14 g change daily #5 underlying history of anxiety and posttraumatic stress disorder maintained on Klonopin continue #6. Underlying seizure disorder, Depakote was discontinued and patient was started on Vimpat 50 mg twice daily as recommended by neurology. #7, significant bradycardia. May be attributed to Vimpat as he was recently started. This was discontinued today. Thyroid function test with borderline low free T4. We will start thyroxine 50 g daily. Echocardiogram showed preserved ejection fraction and no significant valvular abnormalities. Patient was noted to be significantly bradycardic yesterday and continued to be bradycardic with a heart rate in the low 30s while sleeping and in the 40s and low 50s while awake. Case was discussed with electrophysiology. Thyroid function test checked and was ordered Dose will patient was started on Synthroid 50 g. Echocardiogram showed no acute findings. There was concerned that Vimpat is causing her bradycardia so he was discontinued. Keppra level pending. Patient was noted to be less responsive yesterday and her pulse was faint so a CODE BLUE was called and she had chest compressions started but then woke up immediately. Her vital signs remained within normal range. All of her lab work is normal otherwise. She underwent a repeat computed tomography scan of the brain with no acute intracranial findings. She also had CT angiogram of the chest that was negative for PE. Unfortunately this patient is very hard to assess with a lot of underlying psych issues and known history of pain medication seeking behavior. She had similar problem last year when she was hospitalized at [facility] with persistent seizure-like activity. She was then transferred to [facility] and was monitored with 24 hours EEG and was diagnosed with malingering and no evidence of epileptiform activities. We will continue to monitor closely given her significant bradycardia. EP following as well. No intervention recommended at this time. May consider psych evaluation in the morning. May also consider transferring to a tertiary care facility.
[2016-11-13] MEDS: MORPHINE SULFATE 2 MG/ML SYRINGE IVP PRN ×2 (13:15→22:08)
[2016-11-13] MEDS: LEVOTHYROXINE 50 MCG TAB PO SCH (13:28)
--- NOTE | 2016-11-13 13:35 | P.PN ---
Progress Note - Text Patient seen by Dr. Castorena on the medical floor on November 09 This is a follow-up note Transferred to the ICU after recurrent episodes of sinus bradycardia When she is sleeping a heart rates are in the 30s When she is awake heart heart rates are in the mid 40s She was started on some neurologic/psychiatric medications which are now on hold I reviewed all her strips and while she is sleeping her heart rates are in the 30s likely high vagal tone I started her on hyoscyamine 3 times a day Her TSH is suppressed less than 0.015. Evaluation and Management of hyperthyroidism per PCP 10 mm focus of hypoattenuation in the left parietal lobe, possible neuroepithelial cyst or a benign mass per radiology Medical management of sinus bradycardia for now Discussed with her ICU nurse
[2016-11-13] MEDS: levETIRAcetam 500 MG TAB PO SCH (15:33)
--- NOTE | 2016-11-13 17:13 | P.PN ---
Subjective Principal diagnosis: atypical migraine, bradycardia, seizure November 13, 2016: Patient was AOx3 in bed in the ICU. Patient states her head pain is only minimally improved with Fioricet. Patient has had some improvement with IV solumedrol 100 mg, q 8 hrs. Patient denies substernal chest pain and any increase in symptoms. Cardiology has been consulted and is actively involved. Patient is still sinus bradycardia on telemetry monitoring. Patient had a code blue called on her yesterday as noted in other provider notes with an additional loading dose of Keppra by hospitalist. November 12, 2016 / 1745 hrs: Provider arrived to round on the patient and noted that the patient's threat monitoring analyst indicated that the patient's heart rate was at 38-41 bpm. Patient's rhythm was consistently sinus bradycardia. Spoke to patient's nurse who stated that cardiology has been consulted for the patient twice today and she was waiting for a call back. Provider went to the patient's room, checked patient' s vital signs with nurse. Patient stated that she had chest pain. Patient was given Fioricet 2 tablets by nurse at providers direction. Provider paged patient 's admitting physician. Provider verified no beta blockers in use, stopped all benzodiazepines and had nursing staff stop the MS Contin as well in the patient' s MAR. Dr. Cheney was clip on sunglasses inspector for Dr Hood and provider spoke to him via phone providing patient status and information. Physician requested cardiology be contacted and given his cell phone number to be contacted directly to speak to him. Dr. Kim was nearby and assisted with transferring the patient to the 6th floor for increased level of care. Patient was monitored thoroughout until turned over to 6th floor nursing staff. Provider went to 6th floor and provided information to nursing staff to transition patient care. November 11, 2016: Patient is a 36-year-old female is being followed by neurology for intractable headache. Patient starting having a headache approximately 5 days ago which she describes a severe throbbing pain with gradual onset. Pain was originally right-sided but has since generalized. Patient does reportedly take Fioricet at home but did not help. Following day, patient started noticing some weakness on her right side. She is brought to the emergency room. She was given analgesics for headache and it slightly improved, but now is increasing per the patient. Today she reports that is a 7--8 out of [address] scan of the brain was normal. CT angiogram of the brain and neck were both normal. Her CMP and CBC were normal. At time of admission her Depakote level was subtherapeutic. She does report a history of seizure. She was having seizure recurring frequently until she was placed on Keppra 1000 mg twice a day. Depakote was stopped. She is still having possible breakthrough seizure like behavior. When she was informed that her Dialudid was decreased to Q6hrs, within an hour, the patient had "seizure like activity" involving extremity "jerking" per nursing. She then stated that she needed ativan beacause that what she normally gets when she has seizures like that. She reports significant dizziness, occasional syncope whenever she stands up too fast. Cardiology has been involved and consulted. Patient was started on Vimpat previously and increased by Dr oliveira via phone prior to my arrival to 100 mg, BID. Prior to entering the room, I observed the patient from the young verbally interacting with family freely. Just prior to the nurse entering the room, patient repositioned herself and became less interactive, appearing to conceal her previous ability to engage. I entered, began talking to the patient and confronted her with the observations. The patient further attempted to deny her behavior. Her room mate stated "you should see her in the room when you are not here. She is just fine." Today the patient is supine in bed resting, alert and oriented 3 and in no acute distress. Patient immediately began reiterating how she did not feel well and was not doing well unless she had her Dilaudid on a regular basis for her headache and pain. I spoke to the patient regarding her Fioricet use. Objective - Vital Signs Vital signs: Vital Signs Temp 97.8 F 11/13/16 12:00 Pulse 38 L 11/13/16 15:00 Resp 25 H 11/13/16 15:00 BP 138/80 11/13/16 15:00 Pulse Ox 98 11/13/16 15:00 Intake & Output 11/12/16 11/13/16 11/13/16 18:59 06:59 18:59 Intake Total 1100 800 Output Total 1000 700 530 Balance -1000 400 270 Weight 56.5 kg Intake: IV 1100 800 Sodium Chloride 0.9% 1, 600 800 000 ml @ 100 mls/hr IV . Q10H [facility] Rx#:[id number] Sodium Chloride 0.9% 500 500 ml @ 999 mls/hr IV .Q31M ONE Rx#:[id number] Output: Urine 1000 700 530 Other: Voiding Method Indwelling Catheter Indwelling Catheter # Voids 2 - Exam Constitutional: AOx3, cooperative HEENT: NC/AT, no facial asymmetry is seen. Throat: Supple, no masses Respiratory: No increased work of breathing Cardiac: Sinus Bradycardia on telemetry monitoring, stated substernal chest pain. GI: non tender, non distended Musculoskeletal: Rope Coiling Machine Operator strengths are unequal bilaterally 4/5 on the right and 5/ 5 on the left. Lower extremity strengths are unequal 4/5 on the right and 5/5 on the left. Neurological: CN II-XII in tact, patient was AOx3, speech and language are normal, no seizure activity note on physical exam. Sensation was abnormal with decreased sensity to light touch on the right. Integementary: no rash, no erythema Psychiatric: depressed, withdrawn - Labs CBC & Chem 7: 11/13/16 04:24 11/13/16 04:24 Labs: Abnormal Lab Results - Last 24 Hours (Table) 11/12/16 11/12/16 11/12/16 Range/Units 19:17 19:45 19:45 Neutrophils # 9.3 H (1.3-7.7) k/uL Lymphocytes # 0.7 L (1.0-4.8) k/uL D-Dimer (<0.60) mg/L FEU ABG pH (7.35-7.45) ABG pCO2 (35-45) mmHg ABG HCO3 (21-25) mmol/L ABG Total CO2 (19-24) mmol/L ABG O2 Saturation (94-97) % Glucose 120 H (74-99) mg/dL POC Glucose (mg/dL) 122 H (75-99) mg/dL ALT 70 H (9-52) U/L Total Protein (6.3-8.2) g/dL Albumin (3.5-5.0) g/dL TSH (0.465-4.680) mIU/L Free T4 (0.78-2.19) ng/dL Free T3 pg/mL (2.8-5.3) pg/ml Ur Leukocyte Esterase (Negative) Urine WBC (0-5) /hpf Urine Mucus (None) /hpf Urine Opiates Screen (NotDetected) Ur Barbiturates Screen (NotDetected) U Marijuana (THC) Screen (NotDetected) 11/12/16 11/12/16 11/12/16 Range/Units 19:45 20:00 20:32 Neutrophils # (1.3-7.7) k/uL Lymphocytes # (1.0-4.8) k/uL D-Dimer 0.78 H (<0.60) mg/L FEU ABG pH 7.52 H (7.35-7.45) ABG pCO2 34 L (35-45) mmHg ABG HCO3 28 H (21-25) mmol/L ABG Total CO2 29 H (19-24) mmol/L ABG O2 Saturation 99.0 H (94-97) % Glucose (74-99) mg/dL POC Glucose (mg/dL) (75-99) mg/dL ALT (9-52) U/L Total Protein (6.3-8.2) g/dL Albumin (3.5-5.0) g/dL TSH (0.465-4.680) mIU/L Free T4 (0.78-2.19) ng/dL Free T3 pg/mL (2.8-5.3) pg/ml Ur Leukocyte Esterase (Negative) Urine WBC (0-5) /hpf Urine Mucus (None) /hpf Urine Opiates Screen Detected H (NotDetected) Ur Barbiturates Screen Detected H (NotDetected) U Marijuana (THC) Screen Detected H (NotDetected) 11/12/16 11/12/16 11/13/16 Range/Units 20:39 22:20 04:24 Neutrophils # (1.3-7.7) k/uL Lymphocytes # 0.7 L (1.0-4.8) k/uL D-Dimer (<0.60) mg/L FEU ABG pH (7.35-7.45) ABG pCO2 (35-45) mmHg ABG HCO3 (21-25) mmol/L ABG Total CO2 (19-24) mmol/L ABG O2 Saturation (94-97) % Glucose (74-99) mg/dL POC Glucose (mg/dL) 117 H (75-99) mg/dL ALT (9-52) U/L Total Protein (6.3-8.2) g/dL Albumin (3.5-5.0) g/dL TSH (0.465-4.680) mIU/L Free T4 (0.78-2.19) ng/dL Free T3 pg/mL (2.8-5.3) pg/ml Ur Leukocyte Esterase Large H (Negative) Urine WBC 57 H (0-5) /hpf Urine Mucus Rare H (None) /hpf Urine Opiates Screen (NotDetected) Ur Barbiturates Screen (NotDetected) U Marijuana (THC) Screen (NotDetected) 11/13/16 11/13/16 Range/Units 04:24 04:24 Neutrophils # (1.3-7.7) k/uL Lymphocytes # (1.0-4.8) k/uL D-Dimer (<0.60) mg/L FEU ABG pH (7.35-7.45) ABG pCO2 (35-45) mmHg ABG HCO3 (21-25) mmol/L ABG Total CO2 (19-24) mmol/L ABG O2 Saturation (94-97) % Glucose 110 H (74-99) mg/dL POC Glucose (mg/dL) (75-99) mg/dL ALT 59 H (9-52) U/L Total Protein 5.5 L (6.3-8.2) g/dL Albumin 3.4 L (3.5-5.0) g/dL TSH <0.015 L (0.465-4.680) mIU/L Free T4 0.72 L (0.78-2.19) ng/dL Free T3 pg/mL 1.4 L (2.8-5.3) pg/ml Ur Leukocyte Esterase (Negative) Urine WBC (0-5) /hpf Urine Mucus (None) /hpf Urine Opiates Screen (NotDetected) Ur Barbiturates Screen (NotDetected) U Marijuana (THC) Screen (NotDetected) Microbiology - Last 24 Hours (Table) 11/12/16 22:20 Urine Culture - Preliminary Urine,Catheterized Assessment and Plan (1) Atypical migraine Status: Acute (2) Headache Status: Acute (3) Right sided weakness Status: Acute Plan: Patient is still sinus bradycardia on telemetry monitoring. Patient dose not appear to have a neurological etiology based on imaging and testing to date. Cardiology on consult as well. IV solumedrol will be stopped and prednisone 20 mg, 1 tab, po, qday will be prescribed. Patient may continue fioricet at existing dose and frequency. MS contin to be managed by primary care team after this report. Status: Neurology will clear the patient at this time from a neurological standpoint. Primary care team to continue managing patient care. Feel free to contact our office with any further questions. I discussed the patient's pertinent medical information with Dr. Oliveira. He agrees with the plan of care as implemented.
[2016-11-13] MEDS: SODIUM CHLORIDE 0.9% 1,000 ML IV SCH (17:41)
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
[2016-11-14] MEDS: HYOSCYAMINE ELIXIR 250 MCG/10 ML BTL PO SCH ×4 (00:59→23:54)
[2016-11-14] MEDS: levETIRAcetam 500 MG TAB PO SCH ×3 (00:59→21:44)
[2016-11-14] MEDS: MORPHINE SULFATE 2 MG/ML SYRINGE IVP PRN (05:54)
[2016-11-14 05:55] LABS: Basophils % (A) 0 %; CHCM 34.3; Eosinophils # (A) 0.1 k/uL (0-0.7); Eosinophils % (A) 1 %; HCT 36.8 % (34.0-46.0); HDW 2.07; HGB 12.2 gm/dL (11.4-16.0); Luc # (Auto) 0.15; Luc % (Auto) 2; Lymphocytes % (A) 38 %; MCH 31.1 pg (25.0-35.0); MCHC 33.2 g/dL (31.0-37.0); MCV 93.6 fL (80.0-100.0); Mean Platelet Volume 10.1; Monocytes # (A) 0.4 k/uL (0-1.0); Monocytes % (A) 5 %; Neutrophils # (A) 4.4 k/uL (1.3-7.7); Neutrophils % (A) 54 %; RBC 3.93 m/uL (3.80-5.40); RDW 14.1 % (11.5-15.5); WBC (Perox) 8.99
[2016-11-14 06:11] LABS: Anion Gap 4 mmol/L; Blood Urea Nitrogen 14 mg/dL (7-17); Calcium 8.3 mg/dL (8.4-10.2); Carbon Dioxide 27 mmol/L (22-30); Chloride 107 mmol/L (98-107); Glucose 81 mg/dL (74-99); Magnesium 1.9 mg/dL (1.6-2.3); Non-African American GFR(MDRD) >60 (>60 ml/min/1.73 sqM); Phosphorous 3.1 mg/dL (2.5-4.5); Potassium 3.7 mmol/L (3.5-5.1); Sodium 138 mmol/L (137-145)
[2016-11-14] MEDS: SODIUM CHLORIDE 0.9% 1,000 ML IV SCH ×2 (06:58→13:55)
[2016-11-14] MEDS: LEVOTHYROXINE 50 MCG TAB PO SCH (06:58)
[2016-11-14] MEDS: PANTOPRAZOLE 40 MG TABLET PO SCH (06:59)
[2016-11-14] MEDS: LIDOCAINE 5% PATCH TOPICAL SCH (09:47)
[2016-11-14] MEDS: NICOTINE 14MG/24HR PATCH TRANSDERM SCH (09:50)
[2016-11-14] MEDS: ENOXAPARIN 40 MG/0.4 ML SYRINGE SQ SCH (09:50)
[2016-11-14] MEDS: BACLOFEN 10 MG TAB PO SCH ×2 (09:51→21:44)
[2016-11-14] MEDS: predniSONE 20 MG TAB PO SCH (09:51)
--- NOTE | 2016-11-14 12:02 | P.PN ---
Subjective Patient is more awake and alert today. Heart rate in the 50s at rest. She is complaining of chest pain as a result of 2 rounds of CPR that she receives couple of days ago. No events overnight. Keppra level is still pending. Objective - Vital Signs Vital signs: Vital Signs Temp 96.9 F L 11/14/16 08:00 Pulse 41 L 11/14/16 08:00 Resp 16 11/14/16 08:00 BP 101/70 11/14/16 08:00 Pulse Ox 97 11/14/16 08:00 Intake & Output 11/13/16 11/14/16 11/14/16 18:59 06:59 18:59 Intake Total 1000 0 120 Output Total 755 775 Balance 245 -775 120 Weight 56.4 kg Intake: IV 1000 Sodium Chloride 0.9% 1, 1000 000 ml @ 100 mls/hr IV . Q10H [facility] Rx#:[id number] Oral 0 120 Output: Urine 755 775 Other: Voiding Method Indwelling Catheter Indwelling Catheter - Exam General: The patient is awake and alert, in no distress Eye: there is normal conjunctiva bilaterally. Neck: The neck is supple, there is no JVD. Cardiovascular: Normal S1-S2, no S3-S4, no murmurs. Respiratory: Lungs clear to auscultation bilaterally Gastrointestinal: Abdomen is soft, nontender Musculoskeletal: There is no pedal edema. Neurological:. Speech is normal. Skin: Skin is warm and dry - Labs CBC & Chem 7: 11/14/16 05:23 11/14/16 05:23 Labs: Abnormal Lab Results - Last 24 Hours (Table) 11/13/16 11/14/16 Range/Units 04:24 05:23 Calcium 8.3 L (8.4-10.2) mg/dL TSH <0.015 L (0.465-4.680) mIU/L Free T4 0.72 L (0.78-2.19) ng/dL Free T3 pg/mL 1.4 L (2.8-5.3) pg/ml Microbiology - Last 24 Hours (Table) 11/12/16 22:20 Urine Culture - Preliminary Urine,Catheterized Group D Enterococcus Assessment and Plan Plan: #1 severe migraine headache, Fioricet prn. #2 right sided weakness: Possibly related to her migraine headache. Neurology has added steroids. MRI of the brain and EEG unremarkable. Computed tomography scan of the brain negative CTA of the neck negative Echo shows an EF of 60-65%. #3 episodes of palpitation and dizziness at this time will proceed was telemetry. Echo shows EF of 60-65%. #4 tobacco abuse patient was counseled to quit smoking at this time she will have nicotine patch 14 g change daily #5 underlying history of anxiety and posttraumatic stress disorder maintained on Klonopin continue #6. Underlying seizure disorder, Depakote was discontinued and patient was started on Vimpat 50 mg twice daily as recommended by neurology. #7, significant bradycardia. May be attributed to Vimpat as he was recently started. This was discontinued today. Thyroid function test with borderline low free T4. We will start thyroxine 50 g daily. Echocardiogram showed preserved ejection fraction and no significant valvular abnormalities. Patient was noted to be significantly bradycardic yesterday and continued to be bradycardic with a heart rate in the low 30s while sleeping and in the 40s and low 50s while awake. Case was discussed with electrophysiology. Thyroid function test checked and was ordered and given low free T4 and free T3 will patient was started on Synthroid 50 g. she will need to follow up with endocrinology as an outpatient. Echocardiogram showed no acute findings. There was concerned that Vimpat is causing her bradycardia so he was discontinued. Keppra level pending. Patient was also started on by hyociamine by EP discussed with Dr. Brooks possibly this continuing this medication. Patient was noted to be less responsive on 11/12 and her pulse was faint so a CODE BLUE was called and she had chest compressions started but then woke up immediately. Her vital signs remained within normal range. All of her lab work is normal otherwise. She underwent a repeat computed tomography scan of the brain with no acute intracranial findings. She also had CT angiogram of the chest that was negative for PE. Unfortunately this patient is very hard to assess with a lot of underlying psych issues and known history of pain medication seeking behavior. She had similar problem last year when she was hospitalized at [facility] with persistent seizure-like activity. She was then transferred to [facility] and was monitored with 24 hours EEG and was diagnosed with malingering and no evidence of epileptiform activities.She was seen and evaluated by psychiatry during this avoid opiate and benzodiazepine if possible. Follow-up see medication as an outpatient. We will continue to monitor closely. EP following as well. No intervention recommended at this time. Today, I discussed her overall condition with the patient and her family friend at bedside. I explained to them that although other testing are negative. I encouraged her to get up and walk around today. I offered her to be transferred to a tertiary care facility such as [facility] in [place] but she declined this time. We'll continue telemetry monitoring. Encouraged ambulation. Repeat lab work in the morning. Awaiting Brian level.
--- NOTE | 2016-11-14 12:04 | P.PN ---
Subjective Principal diagnosis: Migraine headaches This is a 36-year-old female with known history of hypertension, diabetes, prior history of smoking, questionable prior history of stroke and seizures. She presented to the hospital primarily with symptoms of migraine headaches. Patient was also having symptoms of dizziness and passing out with standing up. She is also having symptoms of chest pain that worsens with taking a deep breath, she describes it as sharp in nature. Stress test was performed in January of last year which was negative for any reversible ischemia. EKG not reveal any acute changes. Cardiac enzymes were negative. Drug screen on admission positive for opiates, barbiturates, and marijuana. Patient is also noted to have a heart rate in the 40s. Patient was started on some neurologic/psychiatric medications which now are on hold. TSH is suppressed to be less than 0.15. He followed by primary care. 10 mm focus of hypoattenuation in the left parietal lobe was noted, being followed by neurology. Echocardiogram with Doppler study was performed which revealed an ejection fraction of 60-65%. Patient was seen and examined this morning lying in bed, complaining of feeling extremely tired and achy all over. Blood pressure this morning 100/70, heart rate in the mid to high 40s. CBC normal. Potassium 3.7, BUN 14, creatinine 0.6. Mag level I.9. Objective - Vital Signs Vital signs: Vital Signs Temp 96.9 F L 11/14/16 08:00 Pulse 41 L 11/14/16 08:00 Resp 16 11/14/16 08:00 BP 101/70 11/14/16 08:00 Pulse Ox 97 11/14/16 08:00 Intake & Output 11/13/16 11/14/16 11/14/16 18:59 06:59 18:59 Intake Total 1000 0 120 Output Total 755 775 Balance 245 -775 120 Weight 56.4 kg Intake: IV 1000 Sodium Chloride 0.9% 1, 1000 000 ml @ 100 mls/hr IV . Q10H [facility] Rx#:[id number] Oral 0 120 Output: Urine 755 775 Other: Voiding Method Indwelling Catheter Indwelling Catheter - Exam PHYSICAL EXAMINATION: HEENT: [Head is atraumatic, normocephalic. Pupils equal, round. Neck is supple. There is no elevated jugular venous pressure.] HEART EXAMINATION: [Heart S1, S2 normal. No murmur or gallop heard.] CHEST EXAMINATION:[ Lungs are clear to auscultation and precussion. positive chest wall tenderness is noted on palpation and with deep breathing.] ABDOMEN: [ Soft, nontender. Bowel sounds are heard. No organomegaly noted]. EXTREMITIES:[ 2+ peripheral pulses with no evidence of peripheral edema and no calf tenderness noted]. NEUROLOGIC [patient is awake, alert and oriented -3.] . - Labs CBC & Chem 7: 11/14/16 05:23 11/14/16 05:23 Labs: Abnormal Lab Results - Last 24 Hours (Table) 11/13/16 11/14/16 Range/Units 04:24 05:23 Calcium 8.3 L (8.4-10.2) mg/dL TSH <0.015 L (0.465-4.680) mIU/L Free T4 0.72 L (0.78-2.19) ng/dL Free T3 pg/mL 1.4 L (2.8-5.3) pg/ml Microbiology - Last 24 Hours (Table) 11/12/16 22:20 Urine Culture - Preliminary Urine,Catheterized Group D Enterococcus Assessment and Plan (1) Migraine Status: Acute (2) Right sided weakness Status: Acute (3) Bradycardia Status: Acute Plan: From cardiology's perspective, medical management recommended for the sinus bradycardia. We will continue to follow DNP note has been reviewed, I agree with a documented findings and plan of care. Patient was seen and examined.
--- NOTE | 2016-11-14 13:48 | P.PN ---
Subjective Principal diagnosis: Severe migraine cephalgia and significant sinus bradycardia. Patient is a 36-year-old female is being followed by neurology for intractable headache. Patient starting having a headache approximately 5 days ago which she describes a severe throbbing pain with gradual onset. Pain was originally right-sided but has since generalized. Patient does reportedly take Fioricet at home but did not help. Following day, patient started noticing some weakness on her right side. She is brought to the emergency room. She was given analgesics for headache and it slightly improved, but now is increasing per the patient. Today she reports that is a 7--8 out of [address] scan of the brain on admission was normal. CT angiogram of the brain and neck were both normal. Her CMP and CBC were normal. At time of admission her Depakote level was subtherapeutic. She does report a history of seizure. She was having seizure recurring frequently until she was placed on Keppra 1000 mg twice a day. Depakote was stopped. She is still having possible breakthrough seizure like behavior. When she was informed that her Dialudid was decreased to Q6hrs, within an hour, the patient had "seizure like activity" involving extremity "jerking" per nursing. For now, the patient is receiving a combination of IV Solu-Medrol, Fioricet and Toradol for migraine. The patient is also on Keppra for seizure activity. Yesterday, a CODE BLUE was called on this patient around 7:30 PM. The hospitalist county home demonstration agent came up to the scene. The patient was found to be moaning. She had pulses. Apparently she did not lose any pulses. She was given a brief CPR due to concerns of NSAID the carotid pulse and then the CPR was discontinued. Following that, the patient was found to be bradycardic and the heart rate was in the low 40s and later on his lower 30s.. Her blood pressure systolic was 140 with diastolic blood pressure of 80. Her respiratory rate was in the low 10. She was lethargic and she was complaining of chest pain. Her 12 -lead EKG showed sinus bradycardia. The patient had a stat CAT scan of the brain that showed 0.9 cm hypodensity in the left seventh posterior centrum semiovale of an uncertain etiology and this was present previously. No other acute intracranial process was seen. The chest x-ray showed no acute cardio pulmonary process. Furthermore CT angios the chest was done that showed no evidence of any pulmonary embolism in the lung parenchyma was clean and intact. The echocardiogram that was done a few days back showed a normal ejection fraction with a EF around 60-65%. No other acute abnormalities was noted. Her latest EEG was within normal limits and was done on 11/09/2016. 2 sets of cardiac enzymes have been negative. The urine drug screen that was done yesterday showed positive barbiturates and marijuana and opiates. The free T4 that was done on 11/12/2016 showed a level of 0.78. TSH was less than 0.015. Stat blood work was also unremarkable. Cardiology was also consulted regarding this bradycardia. Clinically, the patient is not moving her right lower extremity but moved to her left lower extremity spontaneously. Her current heart rate is 32 bpm. Blood pressure is stable. Urine output is stable. No respiratory distress. No chest pain. She is being monitored for cardiac rhythm. She was placed on Levsin elixir 5 ML's by mouth every [address] Enciso's recommendation. The valproic acid from 11/07 was subtherapeutic at 19 and the Keppra level has not been checked. Reevaluated today on 11/14/2016, patient has no active pulmonary symptoms except for some chest pain from CPR. Her migraine cephalgia seems to be better controlled, it comes and goes. Continues to have bradycardia rate in the low 50s. Cardiology is evaluating. Pulmonary workup as noted above by Dr. Urias was all negative. Objective - Vital Signs Vital signs: Vital Signs Temp 97.4 F L 11/14/16 12:00 Pulse 51 L 11/14/16 12:00 Resp 16 11/14/16 08:00 BP 109/72 11/14/16 12:00 Pulse Ox 94 L 11/14/16 12:00 Intake & Output 11/13/16 11/14/16 11/14/16 18:59 06:59 18:59 Intake Total 1000 0 240 Output Total 755 775 Balance 245 -775 240 Weight 56.4 kg Intake: IV 1000 Sodium Chloride 0.9% 1, 1000 000 ml @ 100 mls/hr IV . Q10H [facility] Rx#:[id number] Oral 0 240 Output: Urine 755 775 Other: Voiding Method Indwelling Catheter Indwelling Catheter - Exam Head exam was generally normal. There was no scleral icterus or corneal arcus. Mucous membranes were moist. There is facial asymmetry with some right-sided facial weakness.Neck was supple and without jugular venous distension, thyromegaly, or carotid bruits. Carotids were easily palpable bilaterally. There was no adenopathy.Lungs were clear to auscultation and percussion, and with normal diaphragmatic excursion. No wheezes or rales were noted. Cardiac exam revealed the PMI to be normally situated and sized. The rhythm was regular and no extrasystoles were noted during several minutes of auscultation. The first and second heart sounds were normal and physiologic splitting of the second heart sound was noted. There were no murmurs, rubs, clicks, or gallops. Abdominal exam revealed normal bowel sounds. The abdomen was soft, non-tender, and without masses, organomegaly, or appreciable enlargement of the abdominal aorta.Examination of the extremities revealed easily palpable radial, femoral and pedal pulses. There was no cyanosis, clubbing or edema. Please refer to neurologic exam not by neurology. The patient has some right lower extremity weakness - Labs CBC & Chem 7: 11/14/16 05:23 11/14/16 05:23 Labs: Abnormal Lab Results - Last 24 Hours (Table) 11/13/16 11/14/16 Range/Units 04:24 05:23 Calcium 8.3 L (8.4-10.2) mg/dL TSH <0.015 L (0.465-4.680) mIU/L Free T4 0.72 L (0.78-2.19) ng/dL Free T3 pg/mL 1.4 L (2.8-5.3) pg/ml Microbiology - Last 24 Hours (Table) 11/12/16 22:20 Urine Culture - Preliminary Urine,Catheterized Group D Enterococcus Assessment and Plan Plan: 1 acute sinus bradycardia without any underlying clear identifiable cause. Rule out severe cholinergic reaction contributing to this bradyarrhythmia. Rule out Keppra toxicity knowing that at the higher level can cause bradyarrhythmias. Echocardiogram is within normal. Cardiac as of that within normal. Free T4 level is within normal. 2 complicated severe migraine headache 3 right-sided weakness possibly related to complicated migraine 4 PTSD 5 generalized anxiety disorder 6 seizure disorder 7 muscular skeletal chest wall pain over the anterior chest related to a recent CPR. Recommendation: Continue present treatment plan as per the admitting physician, and as per cardiology, no active pulmonary issues to address, we will sign off and see on when necessary basis. Time with Patient: Less than 30
[2016-11-14] MEDS: BUTALB/APAP/CAFF 50-325-40MG TAB PO PRN (17:15)
[2016-11-14] MEDS ORDERED: KETOROLAC 30 MG/ML 1 ML VIAL IVP STA (22:41)
[2016-11-14] MEDS: ONDANSETRON 4 MG/2 ML VIAL IVP PRN (23:04)
[2016-11-15 06:23] LABS: Basophils % (A) 0 %; CH 31.9; CHCM 33.6; Eosinophils # (A) 0.2 k/uL (0-0.7); Eosinophils % (A) 2 %; HCT 40.1 % (34.0-46.0); HDW 2.11; HGB 13.4 gm/dL (11.4-16.0); Luc # (Auto) 0.09; Luc % (Auto) 1; Lymphocytes # (A) 3.3 k/uL (1.0-4.8); Lymphocytes % (A) 36 %; MCH 31.9 pg (25.0-35.0); MCHC 33.5 g/dL (31.0-37.0); MCV 95.2 fL (80.0-100.0); Mean Platelet Volume 9.5; Monocytes # (A) 0.6 k/uL (0-1.0); Monocytes % (A) 6 %; Neutrophils % (A) 55 %; RBC 4.21 m/uL (3.80-5.40); WBC 9.1 k/uL (3.8-10.6); WBC (Perox) 9.48
[2016-11-15 06:37] LABS: Anion Gap 7 mmol/L; Blood Urea Nitrogen 10 mg/dL (7-17); Carbon Dioxide 29 mmol/L (22-30); Chloride 105 mmol/L (98-107); Glucose 84 mg/dL (74-99); Non-African American GFR(MDRD) >60 (>60 ml/min/1.73 sqM); Phosphorous 4.2 mg/dL (2.5-4.5); Potassium 3.4 mmol/L (3.5-5.1); Sodium 141 mmol/L (137-145)
[2016-11-15] MEDS: PANTOPRAZOLE 40 MG TABLET PO SCH (06:53)
[2016-11-15] MEDS: LEVOTHYROXINE 50 MCG TAB PO SCH (06:53)
[2016-11-15] MEDS: BUTALB/APAP/CAFF 50-325-40MG TAB PO PRN (08:30)
[2016-11-15] MEDS: levETIRAcetam 500 MG TAB PO SCH (08:30)
[2016-11-15] MEDS: predniSONE 20 MG TAB PO SCH (08:31)
[2016-11-15] MEDS: BACLOFEN 10 MG TAB PO SCH (08:31)
[2016-11-15] MEDS: LIDOCAINE 5% PATCH TOPICAL SCH (08:32)
[2016-11-15] MEDS: HYOSCYAMINE ELIXIR 250 MCG/10 ML BTL PO SCH (08:33)
[2016-11-15] MEDS: ENOXAPARIN 40 MG/0.4 ML SYRINGE SQ SCH (08:33)
[2016-11-15] MEDS: NICOTINE 14MG/24HR PATCH TRANSDERM SCH (08:33)
[2016-11-15 09:25] VITALS: BP 109/75; PULSE 43; RESP 16; TEMP 97.6
[2016-11-15] MEDS: SODIUM CHLORIDE 0.9% 1,000 ML IV SCH (10:10)
--- NOTE | 2016-11-15 10:19 | P.DS ---
Providers Date of admission: 11/09/16 09:41 Expected date of discharge: 11/15/16 Attending physician: Jaya Hood Consults: 11/08/16 00:27 Consult Physician Routine Consulting Provider: Laurence Raza Consult Reason/Comments: hemiplegic migraine Do you want consulting provider notified?: Yes 11/08/16 17:14 Consult Physician Urgent Consulting Provider: Henry Singer Consult Reason/Comments: palpitations, dizzy Do you want consulting provider notified?: Yes 11/12/16 12:15 Consult Physician Routine Consulting Provider: Ricky Reese Consult Reason/Comments: conversion disorder Do you want consulting provider notified?: Yes 11/12/16 20:14 Consult Physician Urgent Consulting Provider: Batsheva Urias Consult Reason/Comments: [facility] [employer] [facility] Do you want consulting provider notified?: Yes Primary care physician: [facility] Course: #1 severe migraine headache, Fioricet prn. #2 right sided weakness: Possibly related to her migraine headache. Neurology has added steroids for a short course. MRI of the brain and EEG unremarkable. Computed tomography scan of the brain negative CTA of the neck negative Echo shows an EF of 60-65%. #3 episodes of palpitation and dizziness. Telemetry showed sinus bradycardia. Seen and evaluated by EP. Echo shows EF of 60-65%. #4 tobacco abuse patient was counseled to quit smoking at this time she will have nicotine patch 14 g change daily #5 underlying history of anxiety and posttraumatic stress disorder maintained on Klonopin, advised to wean off gradually #6. Underlying seizure disorder, Depakote was discontinued and patient was started on Vimpat 50 mg twice daily as recommended by neurology but was subsequently discontinued secondary to bradycardia #7, sinus bradycardia. May be attributed to Vimpat as he was recently started. This was discontinued today. Thyroid function test with borderline low free T4. We will start thyroxine 50 g daily. Echocardiogram showed preserved ejection fraction and no significant valvular abnormalities. #8 hypothyroidism, started on levothyroxine 50 g daily Patient was noted to be significantly bradycardic yesterday and continued to be bradycardic with a heart rate in the low 30s while sleeping and in the 40s and low 50s while awake. Case was discussed with electrophysiology. Thyroid function test checked and was ordered and given low free T4 and free T3 will patient was started on Synthroid 50 g. she will need to follow up with endocrinology as an outpatient. Echocardiogram showed no acute findings. There was concerned that Vimpat is causing her bradycardia so he was discontinued. Keppra level pending. Patient was also started on by hyociamine by EP discussed with Dr. Brooks possibly this continuing this medication. Patient was noted to be less responsive on 11/12 and her pulse was faint so a CODE BLUE was called and she had chest compressions started but then woke up immediately. Her vital signs remained within normal range. All of her lab work is normal otherwise. She underwent a repeat computed tomography scan of the brain with no acute intracranial findings. She also had CT angiogram of the chest that was negative for PE. Unfortunately this patient is very hard to assess with a lot of underlying psych issues and known history of pain medication seeking behavior. She had similar problem last year when she was hospitalized at [facility] with persistent seizure-like activity. She was then transferred to [facility] and was monitored with 24 hours EEG and was diagnosed with malingering and no evidence of epileptiform activities.She was seen and evaluated by psychiatry during this avoid opiate and benzodiazepine if possible. Follow-up see medication as an outpatient. We will continue to monitor closely. EP following as well. No intervention recommended at this time. Today, I discussed her overall condition with the patient and her family friend at bedside. Patient is agreeable to be discharged home. She will follow-up with endocrinology regarding her hypothyroidism which was thought to be central. Patient Condition at Discharge: Fair Plan - Discharge Summary New Discharge Prescriptions: New clonazePAM [KlonoPIN] 0.5 mg PO DAILY PRN #12 tablet PRN Reason: Anxiety Continue levETIRAcetam [Keppra] 1,000 mg PO Q12H diphenhydrAMINE HCL [Benadryl] 25 mg PO HS PRN PRN Reason: Itching Butalb/APAP/Caff 50-325-40Mg [Fioricet 50-325-40] 1 tab PO TID PRN PRN Reason: Migraine Headache Dicyclomine [Bentyl] 20 mg PO TID PRN PRN Reason: IBS Ergocalciferol [Vitamin D2 (DRISDOL)] 50,000 unit PO Q7D Docusate [Colace] 100 mg PO DAILY PRN PRN Reason: Constipation Changed Baclofen [Lioresal] 20 mg PO BID PRN #0 PRN Reason: Muscle Spasm Discontinued clonazePAM [KlonoPIN] 1 mg PO BID Divalproex [Depakote] 500 mg PO BID Discharge Medication List levETIRAcetam [Keppra] 1,000 mg PO Q12H 02/10/15 [History] Butalb/APAP/Caff 50-325-40Mg [Fioricet 50-325-40] 1 tab PO TID PRN 01/17/16 [ History] diphenhydrAMINE HCL [Benadryl] 25 mg PO HS PRN 01/17/16 [History] Dicyclomine [Bentyl] 20 mg PO TID PRN 03/01/16 [History] Ergocalciferol [Vitamin D2 (DRISDOL)] 50,000 unit PO Q7D 03/01/16 [History] Docusate [Colace] 100 mg PO DAILY PRN 11/08/16 [History] Baclofen [Lioresal] 20 mg PO BID PRN #0 11/15/16 [Rx] clonazePAM [KlonoPIN] 0.5 mg PO DAILY PRN #12 tablet 11/15/16 [Rx] Follow up Appointment(s)/Referral(s): [facility], [NON-STAFF] - Laurence Raza MD [STAFF PHYSICIAN] - 1 Week Sanaz Conner DO [Primary Care Provider] - 3 Days Discharge Disposition: HOME SELF-CARE
--- NOTE | 2016-11-15 10:42 | P.PN ---
Subjective Principal diagnosis: Migraine headaches This is a 36-year-old female with known history of hypertension, diabetes, prior history of smoking, questionable prior history of stroke and seizures. She presented to the hospital primarily with symptoms of migraine headaches. Patient was also having symptoms of dizziness and passing out with standing up. She is also having symptoms of chest pain that worsens with taking a deep breath, she describes it as sharp in nature. Stress test was performed in January of last year which was negative for any reversible ischemia. EKG not reveal any acute changes. Cardiac enzymes were negative. Drug screen on admission positive for opiates, barbiturates, and marijuana. Patient is also noted to have a heart rate in the 40s. Patient was started on some neurologic/psychiatric medications which now are on hold. TSH is suppressed to be less than 0.15. He followed by primary care. 10 mm focus of hypoattenuation in the left parietal lobe was noted, being followed by neurology. Echocardiogram with Doppler study was performed which revealed an ejection fraction of 60-65%. Patient was seen and examined this morning lying in bed, complaining of feeling extremely tired and achy all over. Blood pressure this morning 100/70, heart rate in the mid to high 40s. CBC normal. Potassium 3.7, BUN 14, creatinine 0.6. Mag level I.9. 11/15/2016 Patient seen and examined this morning, complaining of generalized discomfort everywhere. This patient is very hard to assess with a lot of underlying psych issues and known history of pain medication seeking behavior. Heart rate this morning 53, Blood Pressure 108/74. Patient is being discharged home today. Objective - Vital Signs Vital signs: Vital Signs Temp 97.6 F 11/15/16 08:00 Pulse 43 L 11/15/16 08:00 Resp 16 11/15/16 08:00 BP 109/75 11/15/16 08:00 Pulse Ox 97 11/15/16 08:00 Intake & Output 11/14/16 11/15/16 11/15/16 18:59 06:59 18:59 Intake Total 462 800 222 Output Total 600 400 Balance -138 400 222 Intake: IV 800 Sodium Chloride 0.9% 1, 800 000 ml @ 100 mls/hr IV . Q10H [facility] Rx#:[id number] Oral 462 222 Output: Urine 600 400 Other: Voiding Method Bedside Commode # Voids 1 - Exam PHYSICAL EXAMINATION: HEENT: [Head is atraumatic, normocephalic. Pupils equal, round. Neck is supple. There is no elevated jugular venous pressure.] HEART EXAMINATION: [Heart S1, S2 normal. No murmur or gallop heard.] CHEST EXAMINATION:[ Lungs are clear to auscultation and precussion. positive chest wall tenderness is noted on palpation and with deep breathing.] ABDOMEN: [ Soft, nontender. Bowel sounds are heard. No organomegaly noted]. EXTREMITIES:[ 2+ peripheral pulses with no evidence of peripheral edema and no calf tenderness noted]. NEUROLOGIC [patient is awake, alert and oriented -3.] . - Labs CBC & Chem 7: 11/15/16 05:45 11/15/16 05:45 Labs: Abnormal Lab Results - Last 24 Hours (Table) 11/15/16 Range/Units 05:45 Potassium 3.4 L (3.5-5.1) mmol/L Microbiology - Last 24 Hours (Table) 11/12/16 22:20 Urine Culture - Preliminary Urine,Catheterized Group D Enterococcus Assessment and Plan (1) Migraine Status: Acute (2) Right sided weakness Status: Acute (3) Bradycardia Status: Acute Plan: From cardiology's perspective, medical management recommended for the sinus bradycardia. She may be able to be discharged home from cardiology's perspective. DNP note has been reviewed, I agree with a documented findings and plan of care. Patient was seen and examined.
== END 2016-11-15 11:57 | disposition home or self-care (01) ==
LOC: EC 22:23 → 3SUR 11-08 00:25 → INTOOBSV 11-09 09:41 → OBSVTOIN 11-09 09:41 → 6SEL 11-12 19:11 → 3SUR 11-12 19:11 → 6SEL 11-12 20:09 → 6ICU 11-12 20:09 → 6SEL 11-13 17:21 → 6ICU 11-13 17:21 → UNDODISIN 11-15 11:57 → 6ICU 12-27 23:27
PROVIDERS: ADMIT Internal Medicine; ATTEND Internal Medicine
DX: G43.419 Hemiplegic migraine, intractable, without status migrainosus (principal); G40.909 Epilepsy, unspecified, not intractable, without status epilepticus; G81.91 Hemiplegia, unspecified affecting right dominant side; R55 Syncope and collapse; R00.1 Bradycardia, unspecified; K58.9 Irritable bowel syndrome, unspecified; F32.9 Major depressive disorder, single episode, unspecified; F12.90 Cannabis use, unspecified, uncomplicated; F17.210 Nicotine dependence, cigarettes, uncomplicated; R07.89 Other chest pain; I10 Essential (primary) hypertension; E03.9 Hypothyroidism, unspecified; E11.9 Type 2 diabetes mellitus without complications; F43.10 Post-traumatic stress disorder, unspecified; F41.1 Generalized anxiety disorder; E87.3 Alkalosis; Z79.899 Other long term (current) drug therapy; Z86.73 Personal history of transient ischemic attack (TIA), and cerebral infarction without residual deficits; Z88.8 Allergy status to other drugs, medicaments and biological substances; Z91.041 Radiographic dye allergy status; Z91.040 Latex allergy status; Z86.14 Personal history of Methicillin resistant Staphylococcus aureus infection; Z83.3 Family history of diabetes mellitus; Z83.49 Family history of other endocrine, nutritional and metabolic diseases; Z76.5 Malingerer [conscious simulation]; Z88.6 Allergy status to analgesic agent; Z90.49 Acquired absence of other specified parts of digestive tract; Z90.710 Acquired absence of both cervix and uterus
CPT/HCPCS: 92950; 96376 ×8; 96366 ×7; 96367 ×2; 96372 ×9; 96375 ×6; 93005 ×3; 96365; 99285; 36415; 36600; 95819; 93306; 97116; 97162; 92610; 85379; 84439 ×2; 80164; 84481; 80053 ×6; 80048 ×2; 80177; 84443 ×2; 82550; 82553; 82805; 83605; 83735 ×4; 84100 ×4; 84484 ×2; 85025 ×8; 85610; 85730; 81001; 80306; 87086; 87077; 87186; 71010 ×2; 70496; 70450 ×2; 70498; 71275; 70551; G0378 ×11; S4990 ×8; J3030; J1100; J2765 ×4; Q9967 ×2; J2405 ×4; J2930 ×6; J1650 ×8; J1885 ×3; J2270 ×2; J1170 ×5; J3475 ×3; J0131; J1953; J7512 ×2; C9113 ×2; 96361

== ENCOUNTER 2017-04-28 13:16 | Emergency (ER) | payer OTHER ==
[2017-04-28] MEDS ORDERED: HYDROmorphone 0.5 MG/0.5 ML SYRINGE IVP STA ×2 (14:38→16:33)
[2017-04-28] MEDS ORDERED: ONDANSETRON 4 MG/2 ML VIAL IVP STA (14:38)
--- NOTE | 2017-04-28 14:41 | ED ---
General Adult HPI - General Chief complaint: Abdominal Pain Stated complaint: Abd Pain Time Seen by Provider: 04/28/17 14:29 Source: patient, RN notes reviewed Mode of arrival: ambulatory Limitations: no limitations - History of Present Illness Initial comments: Patient's 37-year-old female who presents emergency room today with a chief complaint of increased left lower quadrant pain that began approximately 3 hours ago. Patient does admit that she was eating a peanut butter and banana sandwich when symptoms began. Does have a history of IBS unsure if this was related. Also with a history of kidney stones. She states recently over the last few days was noticing some discomfort in the back and was thinking about possible urinary tract infection versus a kidney stone as well. States she's not seeing any hematuria. Patient admits to nausea. Patient denies any other complaints or symptoms. Patient denies any recent fever, chills, shortness of breath, chest pain, numbness or tingling, dysuria or hematuria, constipation or diarrhea, headaches or visual changes, or any other complaints. - Related Data Home Medications Medication Instructions Recorded Confirmed levETIRAcetam [Keppra] 1,000 mg PO Q12H 02/10/15 04/28/17 Butalb/APAP/Caff 50-325-40Mg 1 tab PO TID PRN 01/17/16 04/28/17 [Fioricet 50-325-40] diphenhydrAMINE HCL [Benadryl] 25 mg PO HS PRN 01/17/16 04/28/17 Dicyclomine [Bentyl] 20 mg PO TID PRN 03/01/16 04/28/17 Ergocalciferol [Vitamin D2 50,000 unit PO TH 03/01/16 04/28/17 (DRISDOL)] Docusate [Colace] 100 mg PO DAILY PRN 11/08/16 04/28/17 Ondansetron [Zofran ODT] 4 mg PO Q8HR PRN 04/28/17 04/28/17 Oseltamivir [Tamiflu] 75 mg PO Q12HR 04/28/17 04/28/17 Promethazine [Phenergan] 25 mg PO Q6HR PRN 04/28/17 04/28/17 methylPREDNISolone [Medrol Dose See Taper PO DAILY 04/28/17 04/28/17 Pack] Previous Rx's Medication Instructions Recorded Baclofen [Lioresal] 20 mg PO BID PRN #0 11/15/16 Hydrocodone/Acetaminophen [[place] 1 each PO Q6HR PRN #10 tab 04/28/17 5-325] Tamsulosin [Flomax] 0.4 mg PO DAILY #10 cap 04/28/17 Allergies Allergy/AdvReac Type Severity Reaction Status Date / Time Gadolinium-Containing Allergy Unknown Verified 04/28/17 15:06 Contrast Medi latex Allergy Unknown Verified 04/28/17 15:06 prochlorperazine Allergy Unknown Verified 04/28/17 15:06 [From Compazine] propranolol Allergy Unknown Verified 04/28/17 15:06 aspirin AdvReac Unknown Verified 04/28/17 15:06 naproxen AdvReac Unknown Verified 04/28/17 15:06 sumatriptan [From Imitrex] AdvReac Itching Verified 04/28/17 15:06 Review of Systems ROS Statement: Those systems with pertinent positive or pertinent negative responses have been documented in the HPI. ROS Other: All systems not noted in ROS Statement are negative. Past Medical History Past Medical History: Blood Disorder, CVA/TIA, Seizure Disorder Additional Past Medical History / Comment(s): migraines, IBS, IBD History of Any Multi-Drug Resistant Organisms: MRSA Date of last positivie culture/infection: 2005 MDRO Source:: leg Past Surgical History: Adenoidectomy, Hysterectomy Additional Past Surgical History / Comment(s): several abd sx(exp lap-cyst removed from ovaries, kidney , from intestinal wall. OCCIPITAL NERVE BLOCK, RT KNEE MENISCUS REPAIR AND CARTILAGE REMOVED Past Anesthesia/Blood Transfusion Reactions: Postoperative Nausea & Vomiting ( PONV) Past Psychological History: Anxiety, PTSD Smoking Status: Unknown if ever smoked Past Alcohol Use History: Rare Past Drug Use History: None Reported - Past Family History Father Additional Family Medical History / Comment(s): LUPUS, FATHERS MOM, AUNT HAD LUPUS Mother Family Medical History: Osteoarthritis (OA), Thyroid Disorder Additional Family Medical History / Comment(s): GOITER, BOARDERLINE DIABETIC, KIDNEY STONE,GALLSTONES General Exam - General Exam Comments Initial Comments: General: The patient is awake and alert, in moderate distress. Eye: Pupils are equal, round and reactive to light, extra-ocular movements are intact. No nystagmus. There is normal conjunctiva bilaterally. No signs of icterus. Ears, nose, mouth and throat: There are moist mucous membranes and no oral lesions. Neck: The neck is supple, there is no tenderness or JVD. Cardiovascular: There is a regular rate and rhythm. No murmur, rub or gallop is appreciated. Respiratory: Lungs are clear to auscultation, respirations are non-labored, breath sounds are equal. No wheezes, stridor, rales, or rhonchi. Gastrointestinal: Normal appearance of the abdomen. Abdomen is soft on palpation. Does have tenderness in the left upper and greater in the left lower quadrant. No rebound tenderness. No CVA tenderness. No guarding. Musculoskeletal: Normal ROM, no tenderness. Strength 5/5. Sensation intact. Pulses equal bilaterally 2+. Neurological: A&O x 3. CN II-XII intact, There are no obvious motor or sensory deficits. Coordination appears grossly intact. Speech is normal. Skin: Skin is warm and dry and no rashes or lesions are noted. Psychiatric: Cooperative, appropriate mood & affect, normal judgment. Limitations: no limitations Course Vital Signs 04/28/17 13:38 Temperature 98.2 F Pulse Rate 57 L Respiratory 20 Rate Blood Pressure 111/71 O2 Sat by Pulse 100 Oximetry Medical Decision Making - Medical Decision Making Reexamined at this time shows no signs of distress. She is feeling better after medications given here in the emergency room. Patient is unsure if the symptoms are consistent with kidney stone or her IBS. Patient's CT does show evidence ROM of bladder. Her urinalysis shows no sign of infection. There is no hematuria. Patient states she has nausea medication at home. She will be given Flomax along with short prescription pain medication. A MAPS report was reviewed. Patient advised return if symptoms increase worsen. - Lab Data Result diagrams: 04/28/17 14:54 04/28/17 14:54 Lab Results 04/28/17 04/28/17 04/28/17 Range/Units 14:54 14:54 15:19 WBC 10.4 (3.8-10.6) k/uL RBC 4.56 (3.80-5.40) m/uL Hgb 13.8 (11.4-16.0) gm/dL Hct 41.4 (34.0-46.0) % MCV 90.7 (80.0-100.0) fL MCH 30.2 (25.0-35.0) pg MCHC 33.3 (31.0-37.0) g/dL RDW 12.3 (11.5-15.5) % Plt Count 281 (150-450) k/uL Neutrophils % 51 % Lymphocytes % 37 % Monocytes % 7 % Eosinophils % 1 % Basophils % 1 % Neutrophils # 5.3 (1.3-7.7) k/uL Lymphocytes # 3.9 (1.0-4.8) k/uL Monocytes # 0.7 (0-1.0) k/uL Eosinophils # 0.1 (0-0.7) k/uL Basophils # 0.1 (0-0.2) k/uL Sodium 142 (137-145) mmol/L Potassium 4.0 (3.5-5.1) mmol/L Chloride 105 (98-107) mmol/L Carbon Dioxide 24 (22-30) mmol/L Anion Gap 13 mmol/L BUN 9 (7-17) mg/dL Creatinine 0.70 (0.52-1.04) mg/dL Est GFR (MDRD) Af Amer >60 (>60 ml/min/1.73 sqM) Est GFR (MDRD) Non-Af >60 (>60 ml/min/1.73 sqM) Glucose 86 (74-99) mg/dL Calcium 10.0 (8.4-10.2) mg/dL Total Bilirubin 0.2 (0.2-1.3) mg/dL AST 16 (14-36) U/L ALT 30 (9-52) U/L Alkaline Phosphatase 86 (38-126) U/L Total Protein 7.1 (6.3-8.2) g/dL Albumin 4.4 (3.5-5.0) g/dL Amylase 52 (30-110) U/L Lipase 155 (23-300) U/L Urine Color Urine Appearance (Clear) Urine pH (5.0-8.0) Ur Specific [place] (1.001-1.035) Urine Protein (Negative) Urine Glucose (UA) (Negative) Urine Ketones (Negative) Urine Blood (Negative) Urine Nitrite (Negative) Urine Bilirubin (Negative) Urine Urobilinogen (<2.0) mg/dL Ur Leukocyte Esterase (Negative) Urine HCG, Qual Not Detected (Not Detectd) 04/28/17 Range/Units 15:19 WBC (3.8-10.6) k/uL RBC (3.80-5.40) m/uL Hgb (11.4-16.0) gm/dL Hct (34.0-46.0) % MCV (80.0-100.0) fL MCH (25.0-35.0) pg MCHC (31.0-37.0) g/dL RDW (11.5-15.5) % Plt Count (150-450) k/uL Neutrophils % % Lymphocytes % % Monocytes % % Eosinophils % % Basophils % % Neutrophils # (1.3-7.7) k/uL Lymphocytes # (1.0-4.8) k/uL Monocytes # (0-1.0) k/uL Eosinophils # (0-0.7) k/uL Basophils # (0-0.2) k/uL Sodium (137-145) mmol/L Potassium (3.5-5.1) mmol/L Chloride (98-107) mmol/L Carbon Dioxide (22-30) mmol/L Anion Gap mmol/L BUN (7-17) mg/dL Creatinine (0.52-1.04) mg/dL Est GFR (MDRD) Af Amer (>60 ml/min/1.73 sqM) Est GFR (MDRD) Non-Af (>60 ml/min/1.73 sqM) Glucose (74-99) mg/dL Calcium (8.4-10.2) mg/dL Total Bilirubin (0.2-1.3) mg/dL AST (14-36) U/L ALT (9-52) U/L Alkaline Phosphatase (38-126) U/L Total Protein (6.3-8.2) g/dL Albumin (3.5-5.0) g/dL Amylase (30-110) U/L Lipase (23-300) U/L Urine Color Colorless Urine Appearance Clear (Clear) Urine pH 7.0 (5.0-8.0) Ur Specific [place] 1.001 (1.001-1.035) Urine Protein Negative (Negative) Urine Glucose (UA) Negative (Negative) Urine Ketones Negative (Negative) Urine Blood Negative (Negative) Urine Nitrite Negative (Negative) Urine Bilirubin Negative (Negative) Urine Urobilinogen <2.0 (<2.0) mg/dL Ur Leukocyte Esterase Negative (Negative) Urine HCG, Qual (Not Detectd) Disposition Clinical Impression: Abdominal pain Disposition: HOME SELF-CARE Condition: Good Instructions: Abdominal Pain (ED) Additional Instructions: Please use medication as discussed. Please follow-up with family doctor in the next 2 days of symptoms have not improved. Please return to emergency room if the symptoms increase or worsen or for any other concerns. Prescriptions: Hydrocodone/Acetaminophen [[place] 5-325] 1 each PO Q6HR PRN #10 tab PRN Reason: Pain Tamsulosin [Flomax] 0.4 mg PO DAILY #10 cap Referrals: Sanaz Conner DO [Primary Care Provider] - 1-2 days Aleja Alegria MD [STAFF PHYSICIAN] - 1-2 days Time of Disposition: 16:48
[2017-04-28 15:18] LABS: Basophils # (A) 0.1 k/uL (0-0.2); Basophils % (A) 1 %; Eosinophils # (A) 0.1 k/uL (0-0.7); Eosinophils % (A) 1 %; HCT 41.4 % (34.0-46.0); HGB 13.8 gm/dL (11.4-16.0); Lymphocytes # (A) 3.9 k/uL (1.0-4.8); Lymphocytes % (A) 37 %; MCH 30.2 pg (25.0-35.0); MCHC 33.3 g/dL (31.0-37.0); MCV 90.7 fL (80.0-100.0); Mean Platelet Volume 8.4; Monocytes # (A) 0.7 k/uL (0-1.0); Monocytes % (A) 7 %; Neutrophils # (A) 5.3 k/uL (1.3-7.7); Neutrophils % (A) 51 %; Platelet Count 281 k/uL (150-450); RBC 4.56 m/uL (3.80-5.40); RDW 12.3 % (11.5-15.5); WBC 10.4 k/uL (3.8-10.6)
[2017-04-28 15:29] LABS: ALT 30 U/L (9-52); AST 16 U/L (14-36); Albumin 4.4 g/dL (3.5-5.0); Alkaline Phosphatase 86 U/L (38-126); Amylase 52 U/L (30-110); Anion Gap 13 mmol/L; Blood Urea Nitrogen 9 mg/dL (7-17); Carbon Dioxide 24 mmol/L (22-30); Chloride 105 mmol/L (98-107); Glucose 86 mg/dL (74-99); Lipase 155 U/L (23-300); Sodium 142 mmol/L (137-145); Total Bilirubin 0.2 mg/dL (0.2-1.3); Total Protein 7.1 g/dL (6.3-8.2)
[2017-04-28 15:39] LABS: Appearance,Urine Clear (Clear); Bilirubin,Urine Negative (Negative); Blood,Urine Negative (Negative); Color,Urine Colorless; Glucose,Urine (UA) Negative (Negative); Ketones,Urine Negative (Negative); Leukocyte Esterase,Urine Negative (Negative); Nitrite,Urine Negative (Negative); Protein,Urine Negative (Negative); Specific Gravity,Urine 1.001 (1.001-1.035); Urobilinogen,Urine <2.0 mg/dL (<2.0)
[2017-04-28] MEDS ORDERED: RX INFO: IV CONTRAST WAS GIVEN 1 EACH MISC MISCELLANE PRN (15:43)
--- NOTE | 2017-04-28 16:26 | XR ---
EXAMINATION TYPE: XR KUB DATE OF EXAM: 04/28/2017 CLINICAL DATA: 37-year-old female with abdominal pain, H COMPARISON: 11/02/2009 FINDINGS: Lung bases are clear. No evidence for free intraperitoneal air. No dilated small bowel or air-fluid levels. Scattered air and stool seen throughout the colon extendi ng distally into the rectum. Moderate stool burden. No suspicious calcifications identified. Multiple pelvic phlebolith. IMPRESSION: Moderate stool burden. No evidence of bowel obstruction or free intraperitoneal air.
--- NOTE | 2017-04-28 16:33 | CT ---
EXAMINATION TYPE: CT abdomen pelvis w con DATE OF EXAM: 04/28/2017 COMPARISON: NONE HISTORY: 37-year-old female Lower abd pain x4 hours TECHNIQUE: Contiguous axial scanning of the abdomen and pelvis following administration of 100 ml Omn ipaque 300 IV contrast. Delayed images through the kidneys and coronal/sagittal reconstructions perf ormed. CT DLP: 333.8 mGycm Automated exposure control for dose reduction was used. FINDINGS: Heart normal size without pericardial effusion. Lung bases clear without pleural effusion. No focal liver lesion or biliary ductal dilatation. Portal venous system is patent. Gallbladder, adrenal glands, kidneys, spleen, pancreas appear within normal limits. Slight prominence of the main pancreatic duct at 2.5 mm which is still within normal limits. No dilated small bowel, free fluid, or free air. No mesenteric or retroperitoneal lymphadenopathy. There are some surgical material noted at the right lower quadrant suggesting prior appendectomy. Thi s can be correlated clinically. Moderate scattered stool. Bladder incompletely distended. There may be mild circumferential bladder wall thickening. Uterus goldy gically absent. Multiple pelvic phleboliths. Ovaries not clearly delineated and could be obscured by bowel loops are also surgically absent. Bones: No osseous destructive process. IMPRESSION: 1. MILD CIRCUMFERENTIAL BLADDER WALL THICKENING. CORRELATE TO EXCLUDE CYSTITIS. 2. MODERATE STOOL BURDEN. 3. SOME SURGICAL MATERIAL IN THE RIGHT LOWER QUADRANT SUGGESTS PRIOR APPENDECTOMY. CORRELATE WITH GOLDY GICAL HISTORY. 4. OTHERWISE, NO ACUTE INFLAMMATORY PROCESS IDENTIFIED IN THE ABDOMEN OR PELVIS TO EXPLAIN THE PATIEN T'S SYMPTOMS.
[2017-04-28] MEDS ORDERED: KETOROLAC 30 MG/ML 1 ML VIAL IVP STA (16:47)
[2017-04-28 17:04] VITALS: BP 110/72; PULSE 78; RESP 16; TEMP 98
== END 2017-04-28 17:03 | disposition home or self-care (01) ==
LOC: EC 13:16
DX: R10.32 Left lower quadrant pain (principal); R10.12 Left upper quadrant pain; R11.0 Nausea; G40.909 Epilepsy, unspecified, not intractable, without status epilepticus; Z87.19 Personal history of other diseases of the digestive system; Z86.14 Personal history of Methicillin resistant Staphylococcus aureus infection; Z87.442 Personal history of urinary calculi; Z91.041 Radiographic dye allergy status; Z91.040 Latex allergy status; Z88.6 Allergy status to analgesic agent; Z88.8 Allergy status to other drugs, medicaments and biological substances; Z79.899 Other long term (current) drug therapy
CPT/HCPCS: 36415; 80053; 82150; 83690; 85025; 81003; 81025; 74018; 74177; 99284; 96374; 96376; 96375 ×2; J2405; J1885; Q9967; J1170

== ENCOUNTER 2017-08-12 09:48 | Emergency (ER) | payer OTHER ==
[2017-08-12 10:02] VITALS: BP 124/81; PULSE 73; RESP 20; TEMP 97.8
[2017-08-12] MEDS ORDERED: KETOROLAC 30 MG/ML 1 ML VIAL IVP STA (10:14)
[2017-08-12] MEDS ORDERED: SODIUM CHLORIDE 0.9% 2,000 ML IV STA (10:14)
[2017-08-12] MEDS ORDERED: ONDANSETRON 4 MG/2 ML VIAL IVP STA (10:14)
--- NOTE | 2017-08-12 10:17 | ED ---
General Adult HPI - General Chief complaint: Urogenital Stated complaint: unable to urinate & back pain Time Seen by Provider: 08/12/17 10:09 Source: patient, RN notes reviewed Mode of arrival: ambulatory Limitations: no limitations - History of Present Illness Initial comments: This a 37-year-old female presents emergency Department chief complaint of severe right flank pain. Patient states she's had on and off symptoms over the last few days. Patient states states not alleviating. She's had nausea in vomiting. patient also had some diarrhea. patient states that pain radiates from her right kidney area to her right lower pelvic region. patient states that she feels that she has was bathroom but then can go to the bathroom and states that she leaks. Patient reports subjective fever, chills and sweats. Patient states that she's had prior hysterectomy and multiple other abdominal surgeries. - Related Data Home Medications Medication Instructions Recorded Confirmed levETIRAcetam [Keppra] 1,000 mg PO Q12H 02/10/15 04/28/17 Butalb/APAP/Caff 50-325-40Mg 1 tab PO TID PRN 01/17/16 04/28/17 [Fioricet 50-325-40] diphenhydrAMINE HCL [Benadryl] 25 mg PO HS PRN 01/17/16 04/28/17 Dicyclomine [Bentyl] 20 mg PO TID PRN 03/01/16 04/28/17 Ergocalciferol [Vitamin D2 50,000 unit PO TH 03/01/16 04/28/17 (DRISDOL)] Docusate [Colace] 100 mg PO DAILY PRN 11/08/16 04/28/17 Ondansetron [Zofran ODT] 4 mg PO Q8HR PRN 04/28/17 04/28/17 Oseltamivir [Tamiflu] 75 mg PO Q12HR 04/28/17 04/28/17 Promethazine [Phenergan] 25 mg PO Q6HR PRN 04/28/17 04/28/17 methylPREDNISolone [Medrol Dose See Taper PO DAILY 04/28/17 04/28/17 Pack] Previous Rx's Medication Instructions Recorded Baclofen [Lioresal] 20 mg PO BID PRN #0 11/15/16 Hydrocodone/Acetaminophen [[place] 1 each PO Q6HR PRN #10 tab 04/28/17 5-325] Tamsulosin [Flomax] 0.4 mg PO DAILY #10 cap 04/28/17 Ciprofloxacin HCl [Cipro] 500 mg PO Q12HR #20 tablet 08/12/17 Phenazopyridine [Pyridium] 200 mg PO TID #6 tablet 08/12/17 Allergies Allergy/AdvReac Type Severity Reaction Status Date / Time Gadolinium-Containing Allergy Unknown Verified 08/12/17 10:02 Contrast Medi latex Allergy Unknown Verified 08/12/17 10:02 prochlorperazine Allergy Unknown Verified 08/12/17 10:02 [From Compazine] propranolol Allergy Unknown Verified 08/12/17 10:02 aspirin AdvReac Unknown Verified 08/12/17 10:02 naproxen AdvReac Unknown Verified 08/12/17 10:02 sumatriptan [From Imitrex] AdvReac Itching Verified 08/12/17 10:02 Review of Systems ROS Statement: Those systems with pertinent positive or pertinent negative responses have been documented in the HPI. ROS Other: All systems not noted in ROS Statement are negative. Past Medical History Past Medical History: Blood Disorder, CVA/TIA, Seizure Disorder Additional Past Medical History / Comment(s): migraines, IBS, IBD, kidney stones History of Any Multi-Drug Resistant Organisms: MRSA Date of last positivie culture/infection: 2005 MDRO Source:: leg Past Surgical History: Adenoidectomy, Hysterectomy Additional Past Surgical History / Comment(s): several abd sx(exp lap-cyst removed from ovaries, kidney , from intestinal wall. OCCIPITAL NERVE BLOCK, RT KNEE MENISCUS REPAIR AND CARTILAGE REMOVED Past Anesthesia/Blood Transfusion Reactions: Postoperative Nausea & Vomiting ( PONV) Past Psychological History: Anxiety, PTSD Smoking Status: Current every day smoker Past Alcohol Use History: Rare Past Drug Use History: None Reported - Past Family History Father Additional Family Medical History / Comment(s): LUPUS, FATHERS MOM, AUNT HAD LUPUS Mother Family Medical History: Osteoarthritis (OA), Thyroid Disorder Additional Family Medical History / Comment(s): GOITER, BOARDERLINE DIABETIC, KIDNEY STONE,GALLSTONES General Exam Limitations: no limitations General appearance: alert, in no apparent distress Head exam: Present: atraumatic, normocephalic, normal inspection Respiratory exam: Present: normal lung sounds bilaterally. Absent: respiratory distress, wheezes, rales, rhonchi, stridor Cardiovascular Exam: Present: regular rate, normal rhythm, normal heart sounds. Absent: systolic murmur, diastolic murmur, rubs, gallop, clicks GI/Abdominal exam: Present: soft, tenderness (Lower abdominal tenderness moderate), normal bowel sounds. Absent: distended, guarding, rebound, rigid Back exam: Present: CVA tenderness (R). Absent: CVA tenderness (L) Skin exam: Present: warm, dry, intact, normal color. Absent: rash Course Vital Signs 08/12/17 10:01 Temperature 97.8 F Pulse Rate 73 Respiratory 20 Rate Blood Pressure 124/81 O2 Sat by Pulse 100 Oximetry Medical Decision Making - Medical Decision Making 37-year-old female presented emergency from for right flank pain, pelvic pain. Patient has a recheck infection was like a pyelonephritis. Patient be given Rocephin emergency department and Pyridium. Patient we discharged on ciprofloxacin and Pyridium. Return parameters were discussed. - Lab Data Result diagrams: 08/12/17 10:50 08/12/17 10:50 Lab Results 08/12/17 08/12/17 08/12/17 Range/Units 10:50 10:50 10:50 WBC 7.7 (3.8-10.6) k/uL RBC 4.67 (3.80-5.40) m/uL Hgb 14.5 (11.4-16.0) gm/dL Hct 42.6 (34.0-46.0) % MCV 91.4 (80.0-100.0) fL MCH 31.1 (25.0-35.0) pg MCHC 34.0 (31.0-37.0) g/dL RDW 12.7 (11.5-15.5) % Plt Count 257 (150-450) k/uL Neutrophils % 70 % Lymphocytes % 23 % Monocytes % 3 % Eosinophils % 2 % Basophils % 1 % Neutrophils # 5.4 (1.3-7.7) k/uL Lymphocytes # 1.8 (1.0-4.8) k/uL Monocytes # 0.3 (0-1.0) k/uL Eosinophils # 0.2 (0-0.7) k/uL Basophils # 0.1 (0-0.2) k/uL Sodium 143 (137-145) mmol/L Potassium 4.2 (3.5-5.1) mmol/L Chloride 108 H (98-107) mmol/L Carbon Dioxide 22 (22-30) mmol/L Anion Gap 13 mmol/L BUN 8 (7-17) mg/dL Creatinine 0.80 (0.52-1.04) mg/dL Est GFR (CKD-EPI)AfAm >90 (>60 ml/min/1.73 sqM) Est GFR (CKD-EPI)NonAf >90 (>60 ml/min/1.73 sqM) Glucose 88 (74-99) mg/dL Plasma Lactic Acid [place] (0.7-2.0) mmol/L Calcium 10.0 (8.4-10.2) mg/dL Total Bilirubin 0.3 (0.2-1.3) mg/dL AST 24 (14-36) U/L ALT 33 (9-52) U/L Alkaline Phosphatase 91 (38-126) U/L Total Protein 6.7 (6.3-8.2) g/dL Albumin 4.4 (3.5-5.0) g/dL Amylase 53 (30-110) U/L Lipase 195 (23-300) U/L Urine Color Colorless Urine Appearance Cloudy H (Clear) Urine pH 7.0 (5.0-8.0) Ur Specific [place] 1.003 (1.001-1.035) Urine Protein Negative (Negative) Urine Glucose (UA) Negative (Negative) Urine Ketones Negative (Negative) Urine Blood Moderate H (Negative) Urine Nitrite Negative (Negative) Urine Bilirubin Negative (Negative) Urine Urobilinogen <2.0 (<2.0) mg/dL Ur Leukocyte Esterase Large H (Negative) Urine WBC 131 H (0-5) /hpf Urine Bacteria Occasional H (None) /hpf 08/12/17 Range/Units 10:50 WBC (3.8-10.6) k/uL RBC (3.80-5.40) m/uL Hgb (11.4-16.0) gm/dL Hct (34.0-46.0) % MCV (80.0-100.0) fL MCH (25.0-35.0) pg MCHC (31.0-37.0) g/dL RDW (11.5-15.5) % Plt Count (150-450) k/uL Neutrophils % % Lymphocytes % % Monocytes % % Eosinophils % % Basophils % % Neutrophils # (1.3-7.7) k/uL Lymphocytes # (1.0-4.8) k/uL Monocytes # (0-1.0) k/uL Eosinophils # (0-0.7) k/uL Basophils # (0-0.2) k/uL Sodium (137-145) mmol/L Potassium (3.5-5.1) mmol/L Chloride (98-107) mmol/L Carbon Dioxide (22-30) mmol/L Anion Gap mmol/L BUN (7-17) mg/dL Creatinine (0.52-1.04) mg/dL Est GFR (CKD-EPI)AfAm (>60 ml/min/1.73 sqM) Est GFR (CKD-EPI)NonAf (>60 ml/min/1.73 sqM) Glucose (74-99) mg/dL Plasma Lactic Acid [place] 0.9 (0.7-2.0) mmol/L Calcium (8.4-10.2) mg/dL Total Bilirubin (0.2-1.3) mg/dL AST (14-36) U/L ALT (9-52) U/L Alkaline Phosphatase (38-126) U/L Total Protein (6.3-8.2) g/dL Albumin (3.5-5.0) g/dL Amylase (30-110) U/L Lipase (23-300) U/L Urine Color Urine Appearance (Clear) Urine pH (5.0-8.0) Ur Specific [place] (1.001-1.035) Urine Protein (Negative) Urine Glucose (UA) (Negative) Urine Ketones (Negative) Urine Blood (Negative) Urine Nitrite (Negative) Urine Bilirubin (Negative) Urine Urobilinogen (<2.0) mg/dL Ur Leukocyte Esterase (Negative) Urine WBC (0-5) /hpf Urine Bacteria (None) /hpf Disposition Clinical Impression: Pyelonephritis Disposition: HOME SELF-CARE Condition: Stable Instructions: Kidney Infection (ED) Additional Instructions: Please return to the Emergency Department if symptoms worsen or any other concerns. Prescriptions: Ciprofloxacin HCl [Cipro] 500 mg PO Q12HR #20 tablet Phenazopyridine [Pyridium] 200 mg PO TID #6 tablet Is patient prescribed a controlled substance at d/c from ED?: No Referrals: Sanaz Conner DO [Primary Care Provider] - 1-2 days Time of Disposition: 11:39
[2017-08-12 11:13] LABS: Basophils # (A) 0.1 k/uL (0-0.2); Basophils % (A) 1 %; Eosinophils # (A) 0.2 k/uL (0-0.7); Eosinophils % (A) 2 %; HCT 42.6 % (34.0-46.0); HGB 14.5 gm/dL (11.4-16.0); Lymphocytes # (A) 1.8 k/uL (1.0-4.8); Lymphocytes % (A) 23 %; MCH 31.1 pg (25.0-35.0); MCV 91.4 fL (80.0-100.0); Mean Platelet Volume 8.6; Monocytes # (A) 0.3 k/uL (0-1.0); Monocytes % (A) 3 %; Neutrophils # (A) 5.4 k/uL (1.3-7.7); Neutrophils % (A) 70 %; Platelet Count 257 k/uL (150-450); RBC 4.67 m/uL (3.80-5.40); RDW 12.7 % (11.5-15.5); WBC 7.7 k/uL (3.8-10.6)
[2017-08-12 11:16] LABS: Appearance,Urine Cloudy (Clear); Bacteria,Urine Occasional /hpf; Bilirubin,Urine Negative (Negative); Blood,Urine Moderate (Negative); Color,Urine Colorless; Glucose,Urine (UA) Negative (Negative); Ketones,Urine Negative (Negative); Leukocyte Esterase,Urine Large (Negative); Nitrite,Urine Negative (Negative); Protein,Urine Negative (Negative); Specific Gravity,Urine 1.003 (1.001-1.035); Urobilinogen,Urine <2.0 mg/dL (<2.0); WBC,Urine 131 /hpf (0-5)
[2017-08-12 11:25] LABS: ALT 33 U/L (9-52); AST 24 U/L (14-36); Albumin 4.4 g/dL (3.5-5.0); Alkaline Phosphatase 91 U/L (38-126); Amylase 53 U/L (30-110); Anion Gap 13 mmol/L; Blood Urea Nitrogen 8 mg/dL (7-17); Carbon Dioxide 22 mmol/L (22-30); Chloride 108 mmol/L (98-107); Glucose 88 mg/dL (74-99); Lipase 195 U/L (23-300); Potassium 4.2 mmol/L (3.5-5.1); Sodium 143 mmol/L (137-145); Total Bilirubin 0.3 mg/dL (0.2-1.3); Total Protein 6.7 g/dL (6.3-8.2)
--- NOTE | 2017-08-12 11:26 | XR ---
EXAMINATION TYPE: XR KUB DATE OF EXAM: 08/12/2017 11:17 AM CLINICAL HISTORY: Right flank pain, history of kidney stones TECHNIQUE: Two Upright KUB images of the abdomen are obtained. COMPARISON: Abdominal x-ray and CT abdomen and pelvis April 28, 2017. FINDINGS: Scattered gas is seen in non-distended small bowel loops. Gas and fecal material is seen in non-distended colon. Multiple scattered pelvic phleboliths are redemonstrated. No definite nephrolit hiasis. Lung bases are clear. No pneumoperitoneum is seen. Osseous structures are intact IMPRESSION: Overall nonobstructive bowel gas pattern. No definite nephrolithiasis.
[2017-08-12] MEDS ORDERED: cefTRIAXone IN SWFI 2,000 MG/20 ML SYRINGE IVP STA (11:35)
[2017-08-12] MEDS ORDERED: PHENAZOPYRIDINE 200 MG TAB PO STA (11:35)
[2017-08-12] MEDS ORDERED: MORPHINE SULFATE 2 MG/ML SYRINGE IVP ONE (11:42)
== END 2017-08-12 12:08 | disposition home or self-care (01) ==
LOC: EC 09:48
DX: N12 Tubulo-interstitial nephritis, not specified as acute or chronic (principal); R19.7 Diarrhea, unspecified; G40.909 Epilepsy, unspecified, not intractable, without status epilepticus; F17.200 Nicotine dependence, unspecified, uncomplicated; Z79.52 Long term (current) use of systemic steroids; Z79.899 Other long term (current) drug therapy; Z88.6 Allergy status to analgesic agent; Z88.8 Allergy status to other drugs, medicaments and biological substances; Z91.040 Latex allergy status; Z91.09 Other allergy status, other than to drugs and biological substances; Z86.14 Personal history of Methicillin resistant Staphylococcus aureus infection; Z84.1 Family history of disorders of kidney and ureter; Z98.890 Other specified postprocedural states; Z90.710 Acquired absence of both cervix and uterus
CPT/HCPCS: 36415; 80053; 82150; 83605; 83690; 85025; 81001; 87040; 74018; 99284; 96374; 96375 ×3; 96361; J2405; J0696; J1885; J2270

== ENCOUNTER → 2017-08-17 | Outpatient (CLI) | payer OTHER ==
--- NOTE | 2017-08-17 16:39 | CT ---
EXAMINATION TYPE: CT abdomen pelvis wo con DATE OF EXAM: 08/17/2017 COMPARISON: 04/28/2017 INDICATION: Calculus of kidney and ureter, right sided pain DLP: 236.3 mGycm, Automated exposure control for dose reduction was used. CONTRAST: None Study performed without Oral Contrast TECHNIQUE: Axial images were obtained from above the diaphragm to the pubic rami in the axial plane a t 5 mm thick sections. Reconstructed images are reviewed on the computer in the coronal plane. FINDINGS: Limited CT sections are obtained the lung bases. The lung bases are clear. CT ABDOMEN: Liver: Normal Spleen: Normal Pancreas: Normal Adrenal glands: The adrenal glands are normal. Gallbladder: Normal Kidneys: No masses are evident. No hydronephrosis is present. No cysts are present. There may be s ome mild right hydroureter. A 0.2 cm calcification is in the right hemipelvis above the ureterovesica l junction likely within the distal right ureter. Correlate with patient's clinical symptoms. Multipl e phleboliths are also present which makes differentiation from a phlebolith difficult. Aorta: Normal Inferior vena cava: Normal. CT PELVIS: Loops of bowel within the abdomen and pelvis are normal. Study is without oral contrast limiting bowel loop evaluation. Appendix: Not identified. Surgical clips are present suggesting prior appendectomy. Correlate with th e patient's surgical history. Urinary bladder: Normal. Genitourinary structures: Uterus is unremarkable. Adnexal regions appear normal. Osseous structures: No suspicious lytic or sclerotic lesions. IMPRESSIONS: 1. Suspected 0.2 cm calcification at the inferior right ureter above the ureterovesical junction. Mi ld right hydroureter may be present.
== END | disposition home or self-care (01) ==
LOC: RADCTMAIN 16:16
PROVIDERS: ATTEND Nurse Practitioner Family
DX: N20.0 Calculus of kidney (principal)
CPT/HCPCS: 74176

== ENCOUNTER → 2017-08-30 | Outpatient (CLI) | payer OTHER ==
--- NOTE | 2017-08-30 15:28 | CONS ---
CONSULTATION DATE OF SERVICE: 08/30/2017 37-year-old lady has been evaluated in [facility] for multiple sleep problems. Patient has difficulties to initiate sleep and naps by our records about 4 years ago. She demonstrated extreme sleepiness for multiple sleep latency test with mean sleep latency around 1 minute and 2 sleep onset REM periods. SLEEP SCHEDULE: Presently, short sleep schedule varies in terms of time when she goes to bed and she wakes up in the range between 7 and 11 in the morning. FALLING ASLEEP: She does have TV set in bed and usually sleeps in the side position. DURING SLEEP: The has mild snoring, episodes of nightmares, palpitations, difficulties to breathe sometimes at night. DURING THE DAY/SLEEP WAKE EVALUATION: During the day, she may feel tired and sleepy. Bend Sleepiness Scale is 13. Again, sleep study in 2013 did not show any significant respiratory abnormalities during sleep or periodic limb movements and following multiple sleep latency test showed extremely bad sleepiness with a mean sleep latency only 1.2 minutes an 2 sleep onset REM periods. PAST MEDICAL HISTORY: Positive for epilepsy, last episode about 1 and 1/2 years ago, history of factor V Leiden deficiency with 2 strokes in 2007 and 2012 secondary to thrombosis, episodes of migraine, anxiety, depression, posttraumatic stress disorder, irritable bowel syndrome, urinary incontinence, hypothyroidism, herniated disc cervical and lumbar area. PAST SURGICAL HISTORY: Appendectomy, hysterectomy, multiple laparoscopic surgeries for ovarian cyst removed, knee surgery. MEDICATIONS: Keppra, Fioricet, ibuprofen, Klonopin, baclofen, Bentyl. SOCIAL HISTORY: Used to smoke 2 packs a day. Smoking occasional, she quit and then started again, so it is 2 cigarettes a day. Alcohol consumption occasional. FAMILY HISTORY: Heart problems, stroke, fibromyalgia, arthritis, headaches, cancer, insomnia, diabetes, thyroid problem, acid reflux. PHYSICAL EXAM: 37-year-old lady without distress, BP 112/80, HR 52, RR 16, height 5 feet and 3 and 1/2, weight 427, BMI 22.1. Neck 13 inches in circumference. Temperature 98.1. Oxygen saturation on room air 98%. Oropharynx moderately low position of soft palate. Some restriction of nasal breathing. Neck Supple, no JVD. Thyroid is not palpable. LUNGS Clear to percussion and to auscultation. Good air exchange. No wheezing or rhonchi. HEART S1, S2 regular. No murmurs, gallops, or rubs. ABDOMEN: Soft and nontender. Bowel sounds are present. No organomegaly appreciated. EXTREMITIES No clubbing or cyanosis. DIRECT RESPONSE CONSULTANT: Weakness of the right side. No sensitivity from the low part of the right leg and she cannot move low part of the right leg. IMPRESSION: 1. Narcolepsy by results of sleep study 4 years ago with extremely short sleep latency and two sleep onset REM periods, but according to patient, now she is not so sleepy as before. 2. Difficulties to initiate and maintain sleep. Psychophysiological insomnia and also insomnia secondary to anxiety and depression. 3. History of epilepsy. 4. History of stroke in 2007 and 2012. 5. Right side weakness with absence of sensitivity and movements in the low right leg. 6. History of factor V Leiden deficiency. 7. History of migraine. 8. History of anxiety. 9. History of depression. 10.History of posttraumatic stress disorder. 11.Status post total hysterectomy. 12.Irritable bowel syndrome. 13.History of urinary incontinence. 14.History of occipital nerve block. 15.Hypothyroidism. 16.History of herniated disc in cervical and lumbar area. 17.Osteoporosis. PLAN: 1. We will repeat polysomnogram with falling multiple sleep latency test at the present time to re-evaluate the patient sleep and alertness during the day. 2. Sleep hygiene with regular time in bed for at least 7.5 hours. 3. Psychological technique for treatment of insomnia should include stimulus control, paradoxical intention, worry time no watching clock. No watching TV in bedroom. 4. Regular sleep schedule with 8 hours time in bed. 5. No driving if feeling sleepiness. Thank you very much for allowing me to participate in the management of your patient. Sincerely, Low Edwards MD, PhD, FAASM Diplomat of [employer] [employer] [employer] Instructor of [facility] MMODL / IJN: [id number] /
== END | disposition home or self-care (01) ==
LOC: SLEEP 13:44
PROVIDERS: ATTEND Internal Medicine
DX: G47.419 Narcolepsy without cataplexy (principal); G47.00 Insomnia, unspecified; F32.9 Major depressive disorder, single episode, unspecified; F41.9 Anxiety disorder, unspecified; G40.909 Epilepsy, unspecified, not intractable, without status epilepticus; R53.1 Weakness; D68.2 Hereditary deficiency of other clotting factors; G43.909 Migraine, unspecified, not intractable, without status migrainosus; F43.10 Post-traumatic stress disorder, unspecified; K58.9 Irritable bowel syndrome, unspecified; R32 Unspecified urinary incontinence; G58.8 Other specified mononeuropathies; M50.20 Other cervical disc displacement, unspecified cervical region; M51.26 Other intervertebral disc displacement, lumbar region; M81.0 Age-related osteoporosis without current pathological fracture; E03.9 Hypothyroidism, unspecified; F17.210 Nicotine dependence, cigarettes, uncomplicated; Z79.899 Other long term (current) drug therapy; Z86.73 Personal history of transient ischemic attack (TIA), and cerebral infarction without residual deficits; Z90.710 Acquired absence of both cervix and uterus; Z79.1 Long term (current) use of non-steroidal anti-inflammatories (NSAID)
CPT/HCPCS: 99211

== ENCOUNTER 2017-09-24 15:28 | Emergency (ER) | payer OTHER ==
[2017-09-24] MEDS ORDERED: SODIUM CHLORIDE 0.9% 1,000 ML IV STA (17:30)
[2017-09-24] MEDS ORDERED: diphenhydrAMINE 50 MG/ML 1 ML VIAL IVP STA (17:31)
[2017-09-24] MEDS ORDERED: METOCLOPRAMIDE 5 MG/ML 2 ML VIAL IVP STA (17:31)
[2017-09-24 17:46] LABS: Basophils % (A) 1 %; Eosinophils # (A) 0.1 k/uL (0-0.7); Eosinophils % (A) 1 %; HCT 40.3 % (34.0-46.0); HGB 13.8 gm/dL (11.4-16.0); Lymphocytes # (A) 1.5 k/uL (1.0-4.8); Lymphocytes % (A) 29 %; MCH 30.9 pg (25.0-35.0); MCHC 34.2 g/dL (31.0-37.0); MCV 90.4 fL (80.0-100.0); Mean Platelet Volume 8.9; Monocytes # (A) 0.3 k/uL (0-1.0); Monocytes % (A) 6 %; Neutrophils % (A) 60 %; Platelet Count 254 k/uL (150-450); RBC 4.46 m/uL (3.80-5.40); RDW 12.5 % (11.5-15.5)
[2017-09-24 17:55] LABS: ALT 30 U/L (9-52); AST 25 U/L (14-36); Albumin 4.2 g/dL (3.5-5.0); Alkaline Phosphatase 76 U/L (38-126); Anion Gap 7 mmol/L; Blood Urea Nitrogen 11 mg/dL (7-17); Calcium 9.7 mg/dL (8.4-10.2); Carbon Dioxide 27 mmol/L (22-30); Chloride 106 mmol/L (98-107); Glucose 73 mg/dL (74-99); Potassium 4.6 mmol/L (3.5-5.1); Sodium 140 mmol/L (137-145); Total Bilirubin 0.3 mg/dL (0.2-1.3); Total Protein 6.5 g/dL (6.3-8.2)
[2017-09-24 17:59] LABS: Partial Thromboplastin Time 25.5 sec (22.0-30.0); Prothrombin Time 9.9 sec (9.0-12.0)
--- NOTE | 2017-09-24 18:06 | ED ---
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 Patient presents to the emergency department today for evaluation of right- sided facial droop and headache. Patient reports that she was currently undergoing a 48 hours sleep study with continuous cardiac monitoring due to recent history of bradycardia for which cardiology recommended this 48 hours study. Patient reports that she woke this morning with right-sided facial droop and having a mild headache. She attributed this to sleeping in a new facility and not at her home. Patient states that the symptoms were not concerning for her as she has experienced this multiple times in the past. Patient reports that throughout the day the facial paralysis persisted and she was encouraged to come to the emergency department by the care providers at the sleep facility. Patient's medical history is complicated and includes admission to our hospital last December which time she had cardiac arrest and received CPR. Patient is followed by multiple specialists including neurology, cardiology, endocrinology. She reports that she has seen most of the specialists here in this area but has been referred to [facility] so that she can be seen by a multidisciplinary team to evaluate her multiple comorbidities. She does state that she has not had a head CT performed since December of last year. She does continue to have frequent migraines with right-sided hemiplegia. She reports the twitching in her eye and facial droop are typical for her. Patient does note that this morning she was noted to have a low oral temperature. She reports that it was rechecked multiple times and was low in the 95-97 range. In addition she was noted to be bradycardic with heart rates in the high 40s. She states that this is why she is being evaluated though she is concerned today that her thyroid levels may be low. - Related Data Home Medications Medication Instructions Recorded Confirmed levETIRAcetam [Keppra] 1,000 mg PO Q12H 02/10/15 09/24/17 Butalb/APAP/Caff 50-325-40Mg 1 tab PO TID PRN 01/17/16 09/24/17 [Fioricet 50-325-40] Dicyclomine [Bentyl] 20 mg PO TID PRN 03/01/16 09/24/17 Ergocalciferol [Vitamin D2 50,000 unit PO TH 03/01/16 09/24/17 (DRISDOL)] Ondansetron [Zofran ODT] 4 mg PO Q8HR PRN 04/28/17 09/24/17 Ibuprofen [Motrin Ib] 600 mg PO TID PRN 09/24/17 09/24/17 clonazePAM [KlonoPIN] 1 mg PO BID PRN 09/24/17 09/24/17 Previous Rx's Medication Instructions Recorded Baclofen [Lioresal] 20 mg PO BID PRN #0 11/15/16 Allergies Allergy/AdvReac Type Severity Reaction Status Date / Time Gadolinium-Containing Allergy Unknown Verified 09/24/17 15:50 Contrast Medi latex Allergy Unknown Verified 09/24/17 15:50 prochlorperazine Allergy Unknown Verified 09/24/17 15:50 [From Compazine] propranolol Allergy Unknown Verified 09/24/17 15:50 aspirin AdvReac Unknown Verified 09/24/17 15:50 naproxen AdvReac Unknown Verified 09/24/17 15:50 sumatriptan [From Imitrex] AdvReac Itching Verified 09/24/17 15:50 Review of Systems ROS Statement: Those systems with pertinent positive or pertinent negative responses have been documented in the HPI. ROS Other: All systems not noted in ROS Statement are negative. Constitutional: Reports: chills, weakness (Generalized). Denies: fever Eyes: Denies: eye pain, vision change ENT: Denies: ear pain Respiratory: Denies: cough, dyspnea Cardiovascular: Denies: chest pain, palpitations, edema, syncope Endocrine: Reports: fatigue Gastrointestinal: Denies: abdominal pain, nausea, vomiting Genitourinary: Denies: urgency, dysuria Musculoskeletal: Denies: back pain Skin: Denies: rash, lesions Neurological: Reports: headache, weakness, numbness, paresthesias Psychiatric: Denies: anxiety, depression Hematological/Lymphatic: Denies: easy bleeding, easy bruising Past Medical History Past Medical History: Blood Disorder, CVA/TIA, Seizure Disorder Additional Past Medical History / Comment(s): migraines, IBS, IBD, kidney stones , factor V History of Any Multi-Drug Resistant Organisms: MRSA Date of last positivie culture/infection: 2005 MDRO Source:: leg Past Surgical History: Adenoidectomy, Hysterectomy Additional Past Surgical History / Comment(s): several abd sx(exp lap-cyst removed from ovaries, kidney , from intestinal wall. OCCIPITAL NERVE BLOCK, RT KNEE MENISCUS REPAIR AND CARTILAGE REMOVED Past Anesthesia/Blood Transfusion Reactions: Postoperative Nausea & Vomiting ( PONV) Past Psychological History: Anxiety, PTSD Smoking Status: Current every day smoker Past Alcohol Use History: Rare Past Drug Use History: None Reported - Past Family History Father Additional Family Medical History / Comment(s): LUPUS, FATHERS MOM, AUNT HAD LUPUS Mother Family Medical History: Osteoarthritis (OA), Thyroid Disorder Additional Family Medical History / Comment(s): GOITER, BOARDERLINE DIABETIC, KIDNEY STONE,GALLSTONES General Exam Limitations: no limitations General appearance: alert, other (Patient is laying in the hospital bed, she does have a pillow covering her face. She is photophobic. She appears uncomfortable.) Head exam: Present: atraumatic, normocephalic Eye exam: Present: PERRL, EOMI ENT exam: Present: normal exam Neck exam: Present: normal inspection, full ROM Respiratory exam: Present: normal lung sounds bilaterally. Absent: respiratory distress Cardiovascular Exam: Present: normal rhythm, bradycardia, normal heart sounds GI/Abdominal exam: Present: soft. Absent: distended Rectal exam: Present: deferred Extremities exam: Present: normal capillary refill, other (Footdrop on the right ). Absent: pedal edema Neurological exam: Present: alert, oriented X3 Expanded Neurological exam: Present: protecting the airway. Absent: inattentive, memory loss-remote event, memory loss-recent event, ataxia, receptive aphasia, expressive aphasia, total aphasia, tremor Patient oriented to: Present: person, place, time Speech: Present: fluid speech Cranial nerves: EOM's Intact: Normal, Gag Reflex: Normal, Tongue Deviation: Normal, Nystagmus: Normal, Facial Sensation: Abnormal Right, Facial Palsy without Forehead Movement: Abnormal Right Cerebellar function: Finger to Nose: Normal Motor strength exam: RUE: 4, LUE: 4, RLE: 2/1, LLE: 4 Eye Response: (4) open spontaneously Motor Response: (6) obeys commands Verbal Response: (5) oriented Psychiatric exam: Present: normal affect, normal mood (Patient is appropriately irritated by her multiple medical comorbidities and inability to obtain definitive answers regarding her medical conditions) Skin exam: Present: warm, dry Course Vital Signs 09/24/17 09/24/17 15:30 20:01 Temperature 97.0 F L 98.1 F Pulse Rate 51 L 52 L Respiratory 20 17 Rate Blood Pressure 117/86 100/65 O2 Sat by Pulse 100 98 Oximetry EKG Findings - EKG Comments: EKG Findings:: EKG - rate is 47,, rhythm appears to be sinus bradycardia as there are P waves before each QRS, Medical Decision Making - Medical Decision Making The patient was seen and evaluated, history was obtained from the patient, her at bedside and review of medical record Patient has multiple medical comorbidities, a history of stroke, right-sided deficits secondary to previous stroke, and addition she does have hemiplegic migraines which usually resultant paralysis of the right of her face. Patient believes she is experiencing a hemiplegic migraine today. Her symptoms began at 7 AM and she did not come in due to not being alerted these symptoms. However she is undergoing a sleep study and the caregivers demanded that she be transferred to the hospital. Patient does have some concern that she is bradycardic and hypothermic, she states that she's had problems with hypothyroidism in the past. Due to patient's persistent headaches, medical history I will obtain a head CT Labs and TSH were ordered Migraine cocktail was ordered Labs with no neck abnormalities, TSH is within normal limits CT head does reveal old infarct, no acute pathology, no masses Results were discussed with the patient and her at bedside. Patient states that she feels her headache is getting better. She is noted to have less right-sided facial droop. Heart rate remains in the 50s to 60s. I offered the patient admission to the hospital for evaluation by neurology and cardiology. Patient states that she is at her baseline and does not feel there is any indication for admission. Patient states that she has been admitted to this hospital and evaluated by neurology and has not obtained any definitive answers. Patient would prefer to go home to sleep in her own bed so that she can follow-up at [facility] as planned. I advised the patient that we cannot rule out an acute stroke given her symptoms. I advised the patient there is a chance that if she is having a stroke she will progressively worsened this can result in permanent debility or . Patient expresses understanding of this. Sitting the patient's history, her frequent episodes of right-sided facial paralysis and her comfort as well as her 's comfort level with be discharged home I do feel that the patient is stable for discharge home. Both the patient and understand that we cannot rule out an acute stroke. That if the patient is having a TIA or stroke she is at higher risk for having additional strokes in the next 24 hours. They do understand that this could result in worsening or permanent debility or . However at this time the patient would prefer to be discharged home. All questions pertaining to care were answered to the best of my ability the patient was discharged home. - Lab Data Result diagrams: 09/24/17 17:38 09/24/17 17:38 Lab Results 09/24/17 09/24/17 09/24/17 Range/Units 17:38 17:38 17:38 WBC 5.0 (3.8-10.6) k/uL RBC 4.46 (3.80-5.40) m/uL Hgb 13.8 (11.4-16.0) gm/dL Hct 40.3 (34.0-46.0) % MCV 90.4 (80.0-100.0) fL MCH 30.9 (25.0-35.0) pg MCHC 34.2 (31.0-37.0) g/dL RDW 12.5 (11.5-15.5) % Plt Count 254 (150-450) k/uL Neutrophils % 60 % Lymphocytes % 29 % Monocytes % 6 % Eosinophils % 1 % Basophils % 1 % Neutrophils # 3.0 (1.3-7.7) k/uL Lymphocytes # 1.5 (1.0-4.8) k/uL Monocytes # 0.3 (0-1.0) k/uL Eosinophils # 0.1 (0-0.7) k/uL Basophils # 0.0 (0-0.2) k/uL PT 9.9 (9.0-12.0) sec INR 1.0 (<1.2) APTT 25.5 (22.0-30.0) sec Sodium 140 (137-145) mmol/L Potassium 4.6 (3.5-5.1) mmol/L Chloride 106 (98-107) mmol/L Carbon Dioxide 27 (22-30) mmol/L Anion Gap 7 mmol/L BUN 11 (7-17) mg/dL Creatinine 0.70 (0.52-1.04) mg/dL Est GFR (CKD-EPI)AfAm >90 (>60 ml/min/1.73 sqM) Est GFR (CKD-EPI)NonAf >90 (>60 ml/min/1.73 sqM) Glucose 73 L (74-99) mg/dL Calcium 9.7 (8.4-10.2) mg/dL Total Bilirubin 0.3 (0.2-1.3) mg/dL AST 25 (14-36) U/L ALT 30 (9-52) U/L Alkaline Phosphatase 76 (38-126) U/L Troponin I (0.000-0.034) ng/mL Total Protein 6.5 (6.3-8.2) g/dL Albumin 4.2 (3.5-5.0) g/dL TSH 1.230 (0.465-4.680) mIU/L Urine Color Urine Appearance (Clear) Urine pH (5.0-8.0) Ur Specific Urich (1.001-1.035) Urine Protein (Negative) Urine Glucose (UA) (Negative) Urine Ketones (Negative) Urine Blood (Negative) Urine Nitrite (Negative) Urine Bilirubin (Negative) Urine Urobilinogen (<2.0) mg/dL Ur Leukocyte Esterase (Negative) Urine Opiates Screen (NotDetected) Ur Oxycodone Screen (NotDetected) Urine Methadone Screen (NotDetected) Ur Propoxyphene Screen (NotDetected) Ur Barbiturates Screen (NotDetected) U Tricyclic Antidepress (NotDetected) Ur Phencyclidine Scrn (NotDetected) Ur Amphetamines Screen (NotDetected) U Methamphetamines Scrn (NotDetected) U Benzodiazepines Scrn (NotDetected) Urine Cocaine Screen (NotDetected) U Marijuana (THC) Screen (NotDetected) 09/24/17 09/24/17 Range/Units 17:38 18:00 WBC (3.8-10.6) k/uL RBC (3.80-5.40) m/uL Hgb (11.4-16.0) gm/dL Hct (34.0-46.0) % MCV (80.0-100.0) fL MCH (25.0-35.0) pg MCHC (31.0-37.0) g/dL RDW (11.5-15.5) % Plt Count (150-450) k/uL Neutrophils % % Lymphocytes % % Monocytes % % Eosinophils % % Basophils % % Neutrophils # (1.3-7.7) k/uL Lymphocytes # (1.0-4.8) k/uL Monocytes # (0-1.0) k/uL Eosinophils # (0-0.7) k/uL Basophils # (0-0.2) k/uL PT (9.0-12.0) sec INR (<1.2) APTT (22.0-30.0) sec Sodium (137-145) mmol/L Potassium (3.5-5.1) mmol/L Chloride (98-107) mmol/L Carbon Dioxide (22-30) mmol/L Anion Gap mmol/L BUN (7-17) mg/dL Creatinine (0.52-1.04) mg/dL Est GFR (CKD-EPI)AfAm (>60 ml/min/1.73 sqM) Est GFR (CKD-EPI)NonAf (>60 ml/min/1.73 sqM) Glucose (74-99) mg/dL Calcium (8.4-10.2) mg/dL Total Bilirubin (0.2-1.3) mg/dL AST (14-36) U/L ALT (9-52) U/L Alkaline Phosphatase (38-126) U/L Troponin I <0.012 (0.000-0.034) ng/mL Total Protein (6.3-8.2) g/dL Albumin (3.5-5.0) g/dL TSH (0.465-4.680) mIU/L Urine Color Colorless Urine Appearance Clear (Clear) Urine pH 8.0 (5.0-8.0) Ur Specific Urich 1.006 (1.001-1.035) Urine Protein Negative (Negative) Urine Glucose (UA) Negative (Negative) Urine Ketones Negative (Negative) Urine Blood Negative (Negative) Urine Nitrite Negative (Negative) Urine Bilirubin Negative (Negative) Urine Urobilinogen <2.0 (<2.0) mg/dL Ur Leukocyte Esterase Negative (Negative) Urine Opiates Screen Not Detected (NotDetected) Ur Oxycodone Screen Not Detected (NotDetected) Urine Methadone Screen Not Detected (NotDetected) Ur Propoxyphene Screen Not Detected (NotDetected) Ur Barbiturates Screen Detected H (NotDetected) U Tricyclic Antidepress Not Detected (NotDetected) Ur Phencyclidine Scrn Not Detected (NotDetected) Ur Amphetamines Screen Not Detected (NotDetected) U Methamphetamines Scrn Not Detected (NotDetected) U Benzodiazepines Scrn Not Detected (NotDetected) Urine Cocaine Screen Not Detected (NotDetected) U Marijuana (THC) Screen Detected H (NotDetected) Disposition Clinical Impression: Migraine, Facial droop, Bradycardia Disposition: HOME SELF-CARE Instructions: Migraine Headache (ED), Ischemic Stroke (DC), Bradycardia (ED) Is patient prescribed a controlled substance at d/c from ED?: No Referrals: Sanaz Conner DO [Primary Care Provider] - 1-2 days Time of Disposition: 19:33
[2017-09-24 18:16] LABS: Appearance,Urine Clear (Clear); Bilirubin,Urine Negative (Negative); Blood,Urine Negative (Negative); Color,Urine Colorless; Glucose,Urine (UA) Negative (Negative); Ketones,Urine Negative (Negative); Leukocyte Esterase,Urine Negative (Negative); Nitrite,Urine Negative (Negative); Protein,Urine Negative (Negative); Specific Gravity,Urine 1.006 (1.001-1.035); Urobilinogen,Urine <2.0 mg/dL (<2.0)
[2017-09-24 18:27] LABS: Amphetamine Screen,Urine Not Detected (NotDetected); Barbiturate Screen,Urine Detected (NotDetected); Benzodiazepines Screen,Urine Not Detected (NotDetected); Cocaine Screen,Urine Not Detected (NotDetected); Methadone Screen, Urine Not Detected (NotDetected); Opiate Screen,Urine Not Detected (NotDetected); Oxycodone Screen, Urine Not Detected (NotDetected); Phencyclidine Screen,Urine Not Detected (NotDetected); Tricyclic Antidepressant,Urine Not Detected (NotDetected); Urn Cannabinoid Scrn Detected (NotDetected)
--- NOTE | 2017-09-24 18:41 | CT ---
EXAMINATION TYPE: CT brain wo con for TPA DATE OF EXAM: 09/24/2017 COMPARISON: 08/12/2016 HISTORY: Right sided weakness and facial droop. CT DLP: 774.8 mGycm Automated exposure control for dose reduction was used. FINDINGS: Ventricles of normal size. There is no mass effect nor midline shift. There is no sign of intracrania l hemorrhage. There is a 1 cm hypodensity in the left parietal lobe white matter consistent with old lacunar infarct. Calvarium is intact. IMPRESSION: Old lacunar infarct. No acute intracranial abnormality. No change.
[2017-09-24] MEDS ORDERED: KETOROLAC 30 MG/ML 1 ML VIAL IVP STA (19:47)
[2017-09-24 20:02] VITALS: BP 100/65; PULSE 52; RESP 17; TEMP 98.1
== END 2017-09-24 20:02 | disposition home or self-care (01) ==
LOC: EC 15:28
DX: G43.909 Migraine, unspecified, not intractable, without status migrainosus (principal); R29.810 Facial weakness; R00.1 Bradycardia, unspecified; R40.2142 Coma scale, eyes open, spontaneous, at arrival to emergency department; R40.2252 Coma scale, best verbal response, oriented, at arrival to emergency department; R40.2362 Coma scale, best motor response, obeys commands, at arrival to emergency department; G40.909 Epilepsy, unspecified, not intractable, without status epilepticus; F17.200 Nicotine dependence, unspecified, uncomplicated; Z86.73 Personal history of transient ischemic attack (TIA), and cerebral infarction without residual deficits; Z86.14 Personal history of Methicillin resistant Staphylococcus aureus infection; Z79.899 Other long term (current) drug therapy; Z91.040 Latex allergy status; Z88.8 Allergy status to other drugs, medicaments and biological substances; Z88.6 Allergy status to analgesic agent; Z91.048 Other nonmedicinal substance allergy status
CPT/HCPCS: 99285; 96374; 96375 ×2; 96361; 36415; 93005; 80053; 84443; 84484; 85025; 85610; 85730; 81003; 80306; 70450; J1200; J2765; J1885

== ENCOUNTER → 2017-10-18 | Outpatient (CLI) | payer OTHER ==
--- NOTE | 2017-10-18 13:41 | SFUN ---
SLEEP CENTER FOLLOW UP NOTE DATE OF SERVICE: 10/18/2017 37-year-old lady who has been followed in Sleep Center for discussing the results of the sleep studies and following plan. The patient has been diagnosed with narcolepsy about 5 years ago. At that time her sleep latency was extremely short, only 1.2 minutes. Presently she had a polysomnogram and following multiple sleep latency test. Polysomnogram again did not show any significant respiratory abnormalities during the sleep. Normal oxygenation during the night. Lowest oxygen level was 93.6%, which is totally normal. Multiple sleep latency test on the following day showed mean sleep latency 7.7 minutes. No sleep onset REM periods have been documented. During the test, the patient developed weakness of the face was transferred to emergency room on the basis of evaluation there. Their conclusion was the patient had episode of migraine. Presently, the patient continued to have sleepiness during the day. Sometimes she feels sleepiness when she drives. MEDICATIONS: KEPPRA, BACLOFEN, KLONOPIN, ADVIL. PHYSICAL EXAM: GENERAL Patient in no distress. VITAL SIGNS BP 116/67, HR 65, RR 14, temperature 97.9, oxygen saturation at room air 99%. Weight 123.4 pounds. HEENT PERRLA, EOMI, evaluation of oropharynx showed moderately low position of soft palate. NECK Supple, no JVD. Thyroid is not palpable. LUNGS Clear to percussion and to auscultation. Good air exchange. No wheezing or rhonchi. HEART S1, S2 regular. No murmurs, gallops, or rubs. ABDOMEN Soft and nontender. Bowel sounds are present. No organomegaly appreciated. EXTREMITIES No clubbing or cyanosis. TOWEL SORTER Awake, alert, and oriented X3. Cranial nerves 2 to 7 intact. There is no fasciculation or atrophy. noted. No focal deficits observed. The patient has episodes of weakness in her arms during laughing. IMPRESSION: 1. 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 2. History of epilepsy. 3. History of stroke. 4. History of factor V Leiden deficiency. 5. History of anxiety. 6. History of depression. 7. Hypothyroidism. 8. Episodes of migraines. PLAN: 1. Patient will be started with the lowest dose of Adderall 5 mg 1 tablet every morning and 1 tablet in the middle of the day around 2:00 pm. 2. Precautions related to driving. No driving if feeling sleepiness. 3. Sleep hygiene with regular time in bed for at least 8 hours. 4. Daytime naps permitted. Thank you very much for allowing me to participate in management of your patient. Sincerely, Low Edwards MD, PhD, FAASM Diplomat of [place] [employer] [facility] [employer] MMODL / IJN: [id number] /
== END | disposition home or self-care (01) ==
LOC: SLEEP 11:03
PROVIDERS: ATTEND Internal Medicine
DX: G47.419 Narcolepsy without cataplexy (principal); E03.9 Hypothyroidism, unspecified; G43.909 Migraine, unspecified, not intractable, without status migrainosus; F41.9 Anxiety disorder, unspecified; F32.9 Major depressive disorder, single episode, unspecified; Z86.73 Personal history of transient ischemic attack (TIA), and cerebral infarction without residual deficits; Z86.69 Personal history of other diseases of the nervous system and sense organs; Z79.899 Other long term (current) drug therapy; Z79.1 Long term (current) use of non-steroidal anti-inflammatories (NSAID)

== ENCOUNTER 2017-11-08 12:50 | Emergency (ER) | payer OTHER ==
[2017-11-08] MEDS ORDERED: SODIUM CHLORIDE 0.9% 1,000 ML IV STA ×2 (14:02→16:30)
[2017-11-08] MEDS ORDERED: ONDANSETRON 4 MG/2 ML VIAL IVP STA (14:04)
[2017-11-08 14:19] LABS: Appearance,Urine Clear (Clear); Basophils # (A) 0.1 k/uL (0-0.2); Basophils % (A) 1 %; Bilirubin,Urine Negative (Negative); Blood,Urine Negative (Negative); Color,Urine Colorless; Eosinophils # (A) 0.1 k/uL (0-0.7); Eosinophils % (A) 2 %; Glucose,Urine (UA) Negative (Negative); HCT 40.7 % (34.0-46.0); HGB 13.2 gm/dL (11.4-16.0); Ketones,Urine 1+ (Negative); Leukocyte Esterase,Urine Negative (Negative); Lymphocytes % (A) 42 %; MCH 30.4 pg (25.0-35.0); MCHC 32.5 g/dL (31.0-37.0); MCV 93.6 fL (80.0-100.0); Mean Platelet Volume 8.3; Monocytes # (A) 0.4 k/uL (0-1.0); Monocytes % (A) 5 %; Neutrophils # (A) 3.4 k/uL (1.3-7.7); Neutrophils % (A) 48 %; Nitrite,Urine Negative (Negative); PH, Urine 7.5 (5.0-8.0); Platelet Count 301 k/uL (150-450); Protein,Urine Negative (Negative); RBC 4.34 m/uL (3.80-5.40); RDW 12.8 % (11.5-15.5); Specific Gravity,Urine 1.002 (1.001-1.035); Urobilinogen,Urine <2.0 mg/dL (<2.0); WBC 7.1 k/uL (3.8-10.6)
[2017-11-08 14:28] LABS: ALT 26 U/L (9-52); AST 22 U/L (14-36); Albumin 4.1 g/dL (3.5-5.0); Alkaline Phosphatase 76 U/L (38-126); Anion Gap 8 mmol/L; Blood Urea Nitrogen 9 mg/dL (7-17); Calcium 9.5 mg/dL (8.4-10.2); Carbon Dioxide 26 mmol/L (22-30); Chloride 107 mmol/L (98-107); Glucose 78 mg/dL (74-99); Magnesium 1.9 mg/dL (1.6-2.3); Sodium 141 mmol/L (137-145); Total Bilirubin 0.4 mg/dL (0.2-1.3); Total Protein 6.7 g/dL (6.3-8.2)
[2017-11-08 14:37] LABS: Creatine Kinase 94 U/L (30-135)
[2017-11-08 14:40] LABS: INR 1.1 (<1.2); Partial Thromboplastin Time 25.7 sec (22.0-30.0); Prothrombin Time 10.3 sec (9.0-12.0)
[2017-11-08 14:50] LABS: Creatine Kinase MB 0.5 ng/mL (0.0-2.4); Troponin I <0.012 ng/mL (0.000-0.034)
--- NOTE | 2017-11-08 15:49 | CT ---
EXAMINATION TYPE: CT angio chest DATE OF EXAM: 11/08/2017 COMPARISON: 11/13/2016 HISTORY: 37-year-old female Syncope and chest pain. TECHNIQUE: Contiguous axial scanning of the chest performed with IV Contrast, patient injected with 6 6ml mL of Isovue 370. Coronal/sagittal MIP reconstructions performed. CT DLP: 131.9 mGycm Automated exposure control for dose reduction was used. FINDINGS: Heart normal size without pericardial effusion. Mildly ectatic ascending aorta is 3.6 cm. Conventional arch vessel branching anatomy. Satisfactory opacification of the pulmonary system without evidence for pulmonary embolus.. No thoracic lymphadenopathy. There is mild centrilobular emphysema without consolidation or pleural effusion. Mild dependent atele ctasis is noted. Visualized upper abdomen shows no gross adenopathy. Bones: No osseous destructive process. IMPRESSION: NO EVIDENCE FOR PULMONARY EMBOLUS. COPD WITH MILD EMPHYSEMA.
--- NOTE | 2017-11-08 15:53 | CT ---
EXAMINATION TYPE: CT brain wo con DATE OF EXAM: 11/08/2017 COMPARISON: 09/24/2017 HISTORY: Syncope. CT DLP: 795.[address] of the brain was performed. The ventricles, basal cisterns and sulci overlying the cerebral convexities demonstrate a normal appe arance. New cystic areas noted within the left centrum semioval bilaterally. MRI correlation recomme nded. There is no evidence for intracranial hemorrhage or sulcal effacement. No mass effects are seen. Osseous calvarium is intact. IMPRESSION: 1. New cystic areas noted within the left centrum semioval bilaterally. MRI correlation recommended.
[2017-11-08] MEDS ORDERED: METOCLOPRAMIDE 5 MG/ML 2 ML VIAL IVP STA (16:17)
[2017-11-08] MEDS ORDERED: KETOROLAC 30 MG/ML 1 ML VIAL IVP ONE ×2 (16:18→16:33)
[2017-11-08] MEDS ORDERED: ACETAMINOPHEN TAB 500 MG TAB PO STA (16:20)
--- NOTE | 2017-11-08 17:20 | ED ---
General Adult HPI - General Chief complaint: Anxiety Stated complaint: poss seizure Source: patient, EMS Mode of arrival: ambulatory Limitations: no limitations - History of Present Illness Initial comments: Dictation was produced using [employer] dictation software. please excuse any grammatical, word or spelling errors. Chief Complaint: 37 year female with extensive history of CVAs, TIAs, seizure disorder, blood disorder presents with neurologic deficit, chest pain or shortness of breath. History of Present Illness: Is a 37-year-old female presents with neuro deficits , chest pain and shortness of breath. Patient states that she has extensive neurologic history including seizures, strokes, brain aneurysms. Patient is about evaluated multiple occasions for similar complaints. Last month she was here where she left after a complete workup. She was urged to be admitted to the hospital however left with strict return precautions. Patient states that over the past couple days she has been feeling neurologic attacks this described as right-sided weakness. She also has some chest discomfort. The ROS documented in this emergency department record has been reviewed and confirmed by me. Those systems with pertinent positive or negative responses have been documented in the HPI. All other systems are other negative and/or noncontributory. - Related Data Home Medications Medication Instructions Recorded Confirmed levETIRAcetam [Keppra] 1,000 mg PO Q12H 02/10/15 11/08/17 Butalb/APAP/Caff 50-325-40Mg 1 tab PO TID PRN 01/17/16 11/08/17 [Fioricet 50-325-40] Dicyclomine [Bentyl] 20 mg PO TID PRN 03/01/16 11/08/17 Ergocalciferol [Vitamin D2 50,000 unit PO TH 03/01/16 11/08/17 (DRISDOL)] Ondansetron [Zofran ODT] 4 mg PO Q8HR PRN 04/28/17 11/08/17 Ibuprofen [Motrin Ib] 600 mg PO TID PRN 09/24/17 11/08/17 Dextroamphetamine/Amphetamine 5 mg PO BID 11/08/17 11/08/17 [Adderall] Hyoscyamine Sulfate [Levsin] 0.125 mg PO DAILY PRN 11/08/17 11/08/17 Promethazine [Phenergan] 25 mg PO HS PRN 11/08/17 11/08/17 clonazePAM [KlonoPIN] 1 mg PO BID 11/08/17 11/08/17 Previous Rx's Medication Instructions Recorded Baclofen [Lioresal] 20 mg PO BID PRN #0 11/15/16 Allergies Allergy/AdvReac Type Severity Reaction Status Date / Time Gadolinium-Containing Allergy Unknown Verified 11/08/17 13:36 Contrast Medi latex Allergy Unknown Verified 11/08/17 13:36 prochlorperazine Allergy Unknown Verified 11/08/17 13:36 [From Compazine] propranolol Allergy Unknown Verified 11/08/17 13:36 aspirin AdvReac Unknown Verified 11/08/17 13:36 naproxen AdvReac Unknown Verified 11/08/17 13:36 sumatriptan [From Imitrex] AdvReac Itching Verified 11/08/17 13:36 Review of Systems ROS Statement: Those systems with pertinent positive or pertinent negative responses have been documented in the HPI. ROS Other: All systems not noted in ROS Statement are negative. Past Medical History Past Medical History: Blood Disorder, CVA/TIA, Seizure Disorder Additional Past Medical History / Comment(s): migraines, IBS, IBD, kidney stones , factor V History of Any Multi-Drug Resistant Organisms: MRSA Date of last positivie culture/infection: 2005 MDRO Source:: leg Past Surgical History: Adenoidectomy, Hysterectomy Additional Past Surgical History / Comment(s): several abd sx(exp lap-cyst removed from ovaries, kidney , from intestinal wall. OCCIPITAL NERVE BLOCK, RT KNEE MENISCUS REPAIR AND CARTILAGE REMOVED Past Anesthesia/Blood Transfusion Reactions: Postoperative Nausea & Vomiting ( PONV) Past Psychological History: Anxiety, PTSD Smoking Status: Current every day smoker Past Alcohol Use History: Rare Past Drug Use History: None Reported - Past Family History Father Additional Family Medical History / Comment(s): LUPUS, FATHERS MOM, AUNT HAD LUPUS Mother Family Medical History: Osteoarthritis (OA), Thyroid Disorder Additional Family Medical History / Comment(s): GOITER, BOARDERLINE DIABETIC, KIDNEY STONE,GALLSTONES General Exam - General Exam Comments Initial Comments: PHYSICAL EXAM: General Impression: Alert and oriented x3, not in acute distress HEENT: Normocephalic atraumatic, extra-ocular movements intact, pupils equal and reactive to light bilaterally, mucous membranes moist. Cardiovascular: Heart regular rate and rhythm, S1&S2 audible, no murmurs, rubs or gallops Chest: Lungs clear to auscultation bilaterally, no rhonchi, no wheeze, no rales Abdomen: Bowel sounds present, abdomen soft, non-tender, non-distended, no organomegaly Musculoskeletal: Pulses present and equal in all extremities, no peripheral edema Motor: Power 5/5 bilaterally, no focal deficits noted Neurological: Right facial droop, 4+ weakness of the right upper and lower extremities compared to the left, mild paresthesias to light touch. Skin: Intact with no visualized rashes Psych: Normal affect and mood Limitations: no limitations Course Vital Signs 11/08/17 11/08/17 11/08/17 12:56 13:00 16:38 Temperature 97.9 F Pulse Rate 58 L 62 Pulse Rate [ 48 L Staff Counsel ] Respiratory 16 22 Rate Blood Pressure 126/77 118/89 O2 Sat by Pulse 95 98 Oximetry Medical Decision Making - Medical Decision Making ED course: 37-year-old female presents with worsening neurologic deficit and chest pain with shortness of breath. As upon arrival shows findings within acceptable limits. Laboratory evaluation is obtained showing no acute processes. CBC unremarkable. Coag panel negative. Chem panel is negative, cardiac enzymes negative, urine is negative. Chest x-ray shows no acute processes, CT does not show pulmonary emboli, brain CT shows no cystic lesions noted within the left centrum semioval bilaterally. Radiology recommends MRI. Discussed patient case with Dr. Hood who is covering for Dr. Conner recommends that patient be better suited being transferred to another facility with more robust neurology and neurosurgery backup. Discussed with patient and she is willing to be transferred. Patient to be transferred. At time of transfer patient was in stable medical condition. Patient given 324 aspirin given strong history of stroke. At this point it is unclear of what is causing patient's neuro deficits. It appears that patient has cystic lesions which may represent intracranial lesions versus ischemia. Patient is not a candidate for TPA at this time given that patient reports having known history of brain bleed and intracranial aneurysms. EKG Interpretation: A 12 lead EKG was obtained. It was interpreted by myself and attending physician. There is a P wave before every QRS complex. Rate is 49. Rhythm is normal sinus rhythm,. Interval 120, care is 76, QTC 438. QT is not prolonged. No ST segment depression or elevation. Overall, this EKG is unremarkable - Lab Data Result diagrams: 11/08/17 13:00 11/08/17 13:00 Lab Results 11/08/17 11/08/17 11/08/17 Range/Units 13:00 13:00 13:00 WBC 7.1 (3.8-10.6) k/uL RBC 4.34 (3.80-5.40) m/uL Hgb 13.2 (11.4-16.0) gm/dL Hct 40.7 (34.0-46.0) % MCV 93.6 (80.0-100.0) fL MCH 30.4 (25.0-35.0) pg MCHC 32.5 (31.0-37.0) g/dL RDW 12.8 (11.5-15.5) % Plt Count 301 (150-450) k/uL Neutrophils % 48 % Lymphocytes % 42 % Monocytes % 5 % Eosinophils % 2 % Basophils % 1 % Neutrophils # 3.4 (1.3-7.7) k/uL Lymphocytes # 3.0 (1.0-4.8) k/uL Monocytes # 0.4 (0-1.0) k/uL Eosinophils # 0.1 (0-0.7) k/uL Basophils # 0.1 (0-0.2) k/uL PT (9.0-12.0) sec INR (<1.2) APTT (22.0-30.0) sec Sodium 141 (137-145) mmol/L Potassium 4.0 (3.5-5.1) mmol/L Chloride 107 (98-107) mmol/L Carbon Dioxide 26 (22-30) mmol/L Anion Gap 8 mmol/L BUN 9 (7-17) mg/dL Creatinine 0.66 (0.52-1.04) mg/dL Est GFR (CKD-EPI)AfAm >90 (>60 ml/min/1.73 sqM) Est GFR (CKD-EPI)NonAf >90 (>60 ml/min/1.73 sqM) Glucose 78 (74-99) mg/dL Calcium 9.5 (8.4-10.2) mg/dL Magnesium 1.9 (1.6-2.3) mg/dL Total Bilirubin 0.4 (0.2-1.3) mg/dL AST 22 (14-36) U/L ALT 26 (9-52) U/L Alkaline Phosphatase 76 (38-126) U/L Total Creatine Kinase 94 (30-135) U/L CK-MB (CK-2) 0.5 (0.0-2.4) ng/mL CK-MB (CK-2) Rel Index 0.5 Troponin I <0.012 (0.000-0.034) ng/mL Total Protein 6.7 (6.3-8.2) g/dL Albumin 4.1 (3.5-5.0) g/dL Urine Color Urine Appearance (Clear) Urine pH (5.0-8.0) Ur Specific [place] (1.001-1.035) Urine Protein (Negative) Urine Glucose (UA) (Negative) Urine Ketones (Negative) Urine Blood (Negative) Urine Nitrite (Negative) Urine Bilirubin (Negative) Urine Urobilinogen (<2.0) mg/dL Ur Leukocyte Esterase (Negative) Urine HCG, Qual (Not Detectd) 11/08/17 11/08/17 11/08/17 Range/Units 13:00 13:00 13:00 WBC (3.8-10.6) k/uL RBC (3.80-5.40) m/uL Hgb (11.4-16.0) gm/dL Hct (34.0-46.0) % MCV (80.0-100.0) fL MCH (25.0-35.0) pg MCHC (31.0-37.0) g/dL RDW (11.5-15.5) % Plt Count (150-450) k/uL Neutrophils % % Lymphocytes % % Monocytes % % Eosinophils % % Basophils % % Neutrophils # (1.3-7.7) k/uL Lymphocytes # (1.0-4.8) k/uL Monocytes # (0-1.0) k/uL Eosinophils # (0-0.7) k/uL Basophils # (0-0.2) k/uL PT 10.3 (9.0-12.0) sec INR 1.1 (<1.2) APTT 25.7 (22.0-30.0) sec Sodium (137-145) mmol/L Potassium (3.5-5.1) mmol/L Chloride (98-107) mmol/L Carbon Dioxide (22-30) mmol/L Anion Gap mmol/L BUN (7-17) mg/dL Creatinine (0.52-1.04) mg/dL Est GFR (CKD-EPI)AfAm (>60 ml/min/1.73 sqM) Est GFR (CKD-EPI)NonAf (>60 ml/min/1.73 sqM) Glucose (74-99) mg/dL Calcium (8.4-10.2) mg/dL Magnesium (1.6-2.3) mg/dL Total Bilirubin (0.2-1.3) mg/dL AST (14-36) U/L ALT (9-52) U/L Alkaline Phosphatase (38-126) U/L Total Creatine Kinase (30-135) U/L CK-MB (CK-2) (0.0-2.4) ng/mL CK-MB (CK-2) Rel Index Troponin I (0.000-0.034) ng/mL Total Protein (6.3-8.2) g/dL Albumin (3.5-5.0) g/dL Urine Color Colorless Urine Appearance Clear (Clear) Urine pH 7.5 (5.0-8.0) Ur Specific [place] 1.002 (1.001-1.035) Urine Protein Negative (Negative) Urine Glucose (UA) Negative (Negative) Urine Ketones 1+ H (Negative) Urine Blood Negative (Negative) Urine Nitrite Negative (Negative) Urine Bilirubin Negative (Negative) Urine Urobilinogen <2.0 (<2.0) mg/dL Ur Leukocyte Esterase Negative (Negative) Urine HCG, Qual Not Detected (Not Detectd) Disposition Clinical Impression: Neurosensory deficit Disposition: OTHER INSTITUTION NOT DEFINED Condition: Fair Instructions: Generalized Anxiety Disorder (ED) Referrals: Sanaz Conner DO [Primary Care Provider] - 1-2 days Time of Disposition: 17:22 - Out of Hospital Transfer - Req. Specs Out of Hospital Transfer - Requested Specifics: Other Emergency Center
--- NOTE | 2017-11-08 17:44 | XR ---
EXAMINATION TYPE: XR chest 2V DATE OF EXAM: 11/08/2017 COMPARISON: 11/29/2016 HISTORY: Syncope TECHNIQUE: Frontal and lateral views of the chest are obtained. FINDINGS: Heart and mediastinum are normal. Lungs are clear. Diaphragm is normal. Bony thorax is int act. IMPRESSION: Normal chest. No change.
[2017-11-08 18:11] VITALS: RESP 18
[2017-11-08 18:13] VITALS: BP 112/70; PULSE 55; TEMP 98.2
== END 2017-11-08 18:51 | disposition short-term general hospital (02) ==
LOC: EC 12:50
DX: I69.351 Hemiplegia and hemiparesis following cerebral infarction affecting right dominant side (principal); I69.392 Facial weakness following cerebral infarction; R20.2 Paresthesia of skin; R07.89 Other chest pain; R06.02 Shortness of breath; G40.909 Epilepsy, unspecified, not intractable, without status epilepticus; F17.200 Nicotine dependence, unspecified, uncomplicated; Z79.899 Other long term (current) drug therapy; Z88.6 Allergy status to analgesic agent; Z88.8 Allergy status to other drugs, medicaments and biological substances; Z91.040 Latex allergy status; Z91.041 Radiographic dye allergy status; Z86.14 Personal history of Methicillin resistant Staphylococcus aureus infection
CPT/HCPCS: 36415; 93005; 80053; 82550; 82553; 83735; 84484; 85025; 85610; 85730; 81003; 81025; 71046; 70450; 71275; 99285; 96374; 96375 ×2; 96361 ×4; J2765; J2405; J1885; Q9967

== ENCOUNTER → 2018-03-28 | Outpatient (CLI) | payer OTHER ==
--- NOTE | 2018-03-28 11:58 | MR ---
EXAMINATION TYPE: MR brain wo/w con DATE OF EXAM: 03/28/2018 COMPARISON: CT brain 11/08/2017, MR brain 11/09/2016, 02/28/2016 HISTORY: Hemiplegic migraine / CVA TECHNIQUE: Multiplanar, multisequence images of the brain and brainstem is performed without and with IV contras t, utilizing 5 mL intravenous Gadavist . FINDINGS: Diffusion weighted images demonstrate no evidence of a recent infarct or other diffusion ab normality. There is no extra-axial fluid collection or significant interval change in white matter s ignal abnormality. Cystic focus previously described is again noted within the brain parenchyma withi n the left parietal white matter, punctate hyperintensities in the left frontal lobe is also stable c ompared to prior MRI. The ventricular system and cisternal spaces are normal in size and appearance. The brain volume is age appropriate. Midline structures demonstrate normal morphology. The craniocervical junction appears within normal limits. Post contrast images demonstrate no abnormal enhancement. The dural venous sinuses appear pa tent. The visualized sinuses are remarkable for inflammatory change within the maxillary sinus, ethmo id air cells, and the globes are intact. IMPRESSION: Stable brain MRI. No acute abnormality.
== END | disposition home or self-care (01) ==
LOC: RADMRIMAIN 08:46
PROVIDERS: ATTEND Physician Assistant
DX: I63.9 Cerebral infarction, unspecified (principal); G43.419 Hemiplegic migraine, intractable, without status migrainosus
CPT/HCPCS: 70553; A9585

== ENCOUNTER → 2018-04-26 | Outpatient (CLI) | payer OTHER ==
--- NOTE | 2018-04-26 12:42 | ECHOF ---
Referral Reason:R55.9 Presyncope, R00.2 Palpitations, Q21.1 PFO MEASUREMENTS -------- HEIGHT: 162.6 cm WEIGHT: 49.9 kg BP: IVSd: 0.7 cm (0.6 - 1.1) LVIDd: 4.2 cm (3.9 - 5.3) LVPWd: 0.9 cm (0.6 - 1.1) IVSs: 1.1 cm LVIDs: 2.9 cm LVPWs: 1.1 cm LA Diam: 2.4 cm (2.7 - 3.8) Ao Diam: 2.8 cm (2.0 - 3.7) AV Cusp: 2.0 cm (1.5 - 2.6) LA Diam: 2.7 cm (2.7 - 3.8) MV EXCURSION: 16.703 mm (> 18.000) MV EF SLOPE: 106 mm/s (70 - 150) EPSS: 0.3 cm MV E Jasper: 0.79 m/s MV DecT: 184 ms MV A [place]: 0.43 m/s MV E/A Ratio: 1.82 RAP: 5.00 mmHg RVSP: 25.10 mmHg FINDINGS -------- Sinus rhythm. This was a technically good study. LV size, wall thickness and systolic function are normal, with an EF greater than 55%. The left keith tricular size is normal. The right ventricle is normal in size. The left atrial size is normal. The right atrial size is normal.there is no evidence of PFO by bubble study. Bubble Study done to R/O PFO. The aortic valve is trileaflet, and appears structurally normal. No aortic stenosis or regurgitation. Mild mitral regurgitation is present. Mild tricuspid regurgitation present. There is no evidence of pulmonary hypertension. The right v entricular systolic pressure, as measured by Doppler, is 25.10mmHg. There is no pulmonic regurgitation present. The aortic root size is normal. There is no pericardial effusion. CONCLUSIONS -------- 1. LV size, wall thickness and systolic function are normal, with an EF greater than 55%. 2. The left ventricular size is normal. 3. The right ventricle is normal in size. 4. The left atrial size is normal. 5. The right atrial size is normal. 6. Bubble Study done to R/O PFO. 7. The aortic valve is trileaflet, and appears structurally normal. No aortic stenosis or regurgitati on. 8. Mild mitral regurgitation is present. 9. Mild tricuspid regurgitation present. 10. There is no evidence of pulmonary hypertension. 11. The right ventricular systolic pressure, as measured by Doppler, is 25.10mmHg. 12. There is no pulmonic regurgitation present. 13. The aortic root size is normal. 14. There is no pericardial effusion. [employer]FANT LEAD TEACHER: Ofe Parrish RDCS
== END | disposition home or self-care (01) ==
LOC: RADECHMAIN 08:26
PROVIDERS: ATTEND Family Medicine
DX: I08.1 Rheumatic disorders of both mitral and tricuspid valves (principal)
CPT/HCPCS: 93306

== ENCOUNTER → 2018-07-10 | Outpatient (CLI) | payer OTHER ==
--- NOTE | 2018-07-10 12:00 | CT ---
EXAMINATION TYPE: CT abdomen pelvis w con DATE OF EXAM: 07/10/2018 COMPARISON: August 17, 2017 HISTORY: Nausea, vomiting, right flank pain, and major weight loss. CT DLP: 303.1 mGycm CONTRAST: CT scan of the abdomen and pelvis is performed with Oral Contrast and with IV Contrast, patient injec kiara with 100 mL of Isovue 300. FINDINGS: LUNG BASES-: No visible nodule. No infiltrate. LIVER/GB: No calcified gallstones. No space occupying hepatic lesion. Biliary tree is of normal ca liber. PANCREAS: No inflammation. No distinct mass. SPLEEN: No splenic enlargement. No lesion seen. ADRENALS: No nodule. No thickening. KIDNEYS/BLADDER: No hydronephrosis. No nephrolithiasis. No distinct renal mass. Urinary bladder g rossly unremarkable. BOWEL: Normal appendix. Normal bowel caliber. No inflammation. GENITAL ORGANS: No gross abnormality. LYMPH NODES: No greater than 1cm abdominal or pelvic lymph nodes are appreciated. AORTA: No significant abnormality. OSSEOUS STRUCTURES: No significant abnormality is seen. OTHER: No significant additional abnormality is seen. IMPRESSION: 1. No distinct abnormality appreciated to account for the patient's symptoms.
== END ==
LOC: RADCTMAIN 09:30
PROVIDERS: ATTEND Family Medicine
DX: R63.4 Abnormal weight loss (principal)
CPT/HCPCS: 74177; Q9967

== ENCOUNTER → 2019-10-21 | Outpatient (CLI) | payer OTHER ==
--- NOTE | 2019-10-21 22:16 | CT ---
EXAMINATION TYPE: CT lower extremity RT wo con DATE OF EXAM: 10/21/2019 COMPARISON: No plain film submitted for correlation HISTORY: Calcaneus fracture RT CT DLP: 461.90 mGycm Automated exposure control for dose reduction was used. Helical imaging through the right ankle FINDINGS: Extensive soft tissue edema is present. There is a posterior comminuted calcaneal fracture present. B one mineralization is reduced. There is overlying splint. IMPRESSION: CALCANEUS FRACTURE IS COMMINUTED POSTERIORLY.
== END | disposition home or self-care (01) ==
LOC: RADCTMAIN 16:19
PROVIDERS: ATTEND Podiatrist Foot & Ankle Surgery
DX: S92.001A Unspecified fracture of right calcaneus, initial encounter for closed fracture (principal)

== ENCOUNTER 2021-03-01 09:03 | Day surgery (SDC) | payer OTHER ==
[2021-02-25 18:17] VITALS: BMI 20.9
[~2021-03-01 09:03] MED LIST: LACTATED RINGERS 1,000 ML IV SCH; LIDOCAINE 1% (10MG/ML) FOR IV START INTRADERMA PRN
[2021-03-01 09:48] VITALS: TEMP 97.4
[2021-03-01] MEDS ORDERED: KETOROLAC 30 MG/ML 1 ML VIAL ONE (09:54)
[2021-03-01] MEDS ORDERED: ONDANSETRON 4 MG/2 ML VIAL ONE ×2 (09:54→11:29)
[2021-03-01] MEDS ORDERED: MIDAZOLAM 2 MG/2 ML VIAL IVP ONE (10:00)
[2021-03-01] MEDS ORDERED: ONDANSETRON 4 MG/2 ML VIAL IVP ONE ×2 (10:00→11:30)
[2021-03-01] MEDS ORDERED: PROPOFOL 10 MG/ML 20 ML VIAL IV ONE (10:22)
[2021-03-01] MEDS ORDERED: LIDOCAINE 1% INJ 10MG/ML (20 ML MDV) ONE (10:22)
--- NOTE | 2021-03-01 10:47 | P.PCN ---
Date of Procedure: 03/01/21 Procedure(s) Performed: Brief history: Patient is a pleasant 40-year-old white female scheduled for an elective upper endoscopy as well as colonoscopy as a part of evaluation of abdominal pain, intermittent nausea vomiting and change in bowel habits for the last 6 months. She is been having severe intense lower abdominal pain and diarrhea with intermittent a 5-6 loose watery bowel movements daily. Because of a 50 pounds in last 6 months. Procedure performed: Esophagogastroduodenoscopy with biopsy Colonoscopy with random biopsies Preoperative diagnosis: Abdominal pain/nausea vomiting Change in bowel habits Anesthesia: MAC Procedure: After informed consent was obtained from the patient was brought into the endoscopy unit and IV sedation was administered by anesthesia under continuous monitoring. Initially upper endoscopy was done. The Olympus GF 160 video endoscope was inserted inserted into the mouth and esophagus intubated without any difficulty and was gradually advanced into the stomach and duodenum and carefully examined. The bulb and second part of the duodenum appeared normal. Biopsies were done from the duodenum to rule out celiac disease. The scope was then withdrawn into the stomach adequately insufflated with air and upon careful examination the antrum had mild gastritis and biopsies were done from this area. The body, cardia and fundus appeared normal. The scope was then withdrawn into the esophagus. The GE junction was located at 40 cm to the incisors. It appeared regular with no erythema erosions or ulcerations. Rest of the esophagus appeared normal. Abscesses were done from the distal esophagus. Patient tolerated the procedure well. At this time the patient continued to remain sedation. Initial digital rectal examination was normal. Olympus CF 160 video colonoscope was then inserted into the rectum and gradually advanced to the cecum without any difficulty. Careful examination was performed as the scope was gradually being withdrawn. The prep was excellent. The cecum, ascending colon, transverse colon, descending colon, sigmoid colon and rectum appeared normal. Random biopsies were done from ascending and descending colon to rule out microscopic/collagenous colitis Retroflexion was performed in the rectum and no lesions were noted. Patient tolerated the procedure well. Impression: 1. Upper endoscopy revealed mild antral gastritis but no evidence of esophagitis or peptic ulcer 2. Colonoscopy was within normal limits with no evidence of colitis or colorectal neoplasia Recommendations: Findings of this examination were discussed with the patient as well as a family. She was advised to follow with the biopsy results. She'll be seen in office in 3-4 weeks.
[2021-03-01 11:11] VITALS: RESP 18
[2021-03-01 11:16] VITALS: PULSE 51
[2021-03-01 12:05] VITALS: BP 117/70
[2021-03-01] MEDS ORDERED: LACTATED RINGERS 1,000 ML IV ONE (12:06)
== END 2021-03-01 13:08 | disposition home or self-care (01) ==
LOC: ORWHC2ENDO 09:03
PROVIDERS: ATTEND Internal Medicine Gastroenterology
DX: K52.9 Noninfective gastroenteritis and colitis, unspecified (principal); K31.9 Disease of stomach and duodenum, unspecified; I49.9 Cardiac arrhythmia, unspecified; Z86.718 Personal history of other venous thrombosis and embolism; I77.6 Arteritis, unspecified; M25.579 Pain in unspecified ankle and joints of unspecified foot; I72.9 Aneurysm of unspecified site; Z87.442 Personal history of urinary calculi; Z86.73 Personal history of transient ischemic attack (TIA), and cerebral infarction without residual deficits; R56.9 Unspecified convulsions; G90.50 Complex regional pain syndrome I, unspecified; Z85.41 Personal history of malignant neoplasm of cervix uteri; Z87.19 Personal history of other diseases of the digestive system; Z79.1 Long term (current) use of non-steroidal anti-inflammatories (NSAID); Z79.891 Long term (current) use of opiate analgesic; Z79.899 Other long term (current) drug therapy
CPT/HCPCS: 88305; 45380; 43239; J2250; J2405; J2001; J1885; J2704

== ENCOUNTER 2022-06-16 21:36 | Emergency (ER) | payer OTHER ==
[2022-06-16 21:58] LABS: Glucose,Whole Blood 82 mg/dL (70-110)
[2022-06-16 22:10] LABS: Basophils # (A) 0.1 k/uL (0-0.2); Basophils % (A) 1 %; Eosinophils # (A) 0.2 k/uL (0-0.7); Eosinophils % (A) 3 %; HCT 38.5 % (34.0-46.0); HGB 12.8 gm/dL (11.4-16.0); Lymphocytes # (A) 2.2 k/uL (1.0-4.8); Lymphocytes % (A) 34 %; MCH 30.5 pg (25.0-35.0); MCHC 33.2 g/dL (31.0-37.0); MCV 91.8 fL (80.0-100.0); Mean Platelet Volume 8.3; Monocytes # (A) 0.3 k/uL (0-1.0); Monocytes % (A) 5 %; Neutrophils # (A) 3.6 k/uL (1.3-7.7); Neutrophils % (A) 55 %; Platelet Count 334 k/uL (150-450); RBC 4.19 m/uL (3.80-5.40); RDW 12.4 % (11.5-15.5); WBC 6.5 k/uL (3.8-10.6)
--- NOTE | 2022-06-16 22:10 | ED ---
General Adult HPI - General Chief complaint: Chest Pain Stated complaint: Chest Pain Time Seen by Provider: 06/16/22 21:44 Source: patient, EMS Mode of arrival: EMS Limitations: no limitations - History of Present Illness Initial comments: Dictation was produced using [employer] dictation software. please excuse any grammatical, word or spelling errors. Chief Complaint: 42-year-old female presents emergency department for chest pain History of Present Illness: Is a 42-year-old female she has past medical history of thyroid disease, epilepsy pressure is history of hysterectomy. Through most of the day today she was having pressure-like sensation to her anterior chest. States it radiates to the left jaw area. Not radiating down extremity. Patient denies any associated nausea but does report diaphoresis. Denies any cough. Sh e does report associated shortness of breath. She does report some family history of heart conditions. The ROS documented in this emergency department record has been reviewed and confirmed by me. Those systems with pertinent positive or negative responses have been documented in the HPI. All other systems are other negative and/or noncontributory. PHYSICAL EXAM: General Impression: Alert and oriented x3, not in acute distress HEENT: Normocephalic atraumatic, extra-ocular movements intact, pupils equal and reactive to light bilaterally, mucous membranes moist. Cardiovascular: Heart regular rate and rhythm Chest: Able to complete full sentences, no retractions, no tachypnea Abdomen: abdomen soft, non-tender, non-distended, no organomegaly Musculoskeletal: Pulses present and equal in all extremities, no peripheral edema Motor: no focal deficits noted Neurological: CN II-XII grossly intact, no focal motor or sensory deficits noted Skin: Intact with no visualized rashes Psych: Anxious ED course: 42-year-old female presents to the ER for atypical chest with typical features.. Patient is well-appearing. EKG does not show any signs of ischemia or infarction. Nursing notes and chart review was performed EKG interpreted by me: Ventricular rate 65, sinus rhythm,. 135, QRS 75, QTC 371. No MI prolongation, no QTC prolongation, no ST or T-wave changes noted. Overall, this EKG is unremarkable Was pt. sent in by a medical professional or institution (, PA, PROGRAM DIRECTOR SUBSTANCE ABUSE, urgent care, hospital, or halfway...) When possible be specific @ -no Did you speak to anyone other than the patient for history (EMS, parent, family, police, friend...)? What history was obtained from this source @ -No Did you review nursing and triage notes (agree or disagree)? Why? @ -I reviewed and agree with nursing and triage notes Were old charts reviewed (outside hosp., previous admission, EMS record, old EKG, old radiological studies, urgent care reports/EKG's, halfway records)? Report findings @ -No old charts were reviewed Differential Diagnosis (chest pain, altered mental status, abdominal pain women, abdominal pain men, vaginal bleeding, musculoskeletal, weakness, fever, dyspnea, syncope, headache, dizziness, GI bleed, back pain, seizure, CVA, palpatations, mental health)? @ -Differential Chest Pain: Stable Angina, Unstable Angina, STEMI, NSTEMI Aortic Dissection, Pneumothorax, Musculoskeletal, Esophageal Spasm GERD, Cholecystitis, Pancreatitis, Zoster, this is not meant to be an all-inclusive list. EKG interpreted by me (3pts min.). @ -See above X-rays interpreted by me (1pt min.). @ -Nonacute CT interpreted by me (1pt min.). @ -None done U/S interpreted by me (1pt. min.). @ -None done What testing was considered but not performed or refused? (CT, X-rays, U/S, labs)? Why? @ -None What meds were considered but not given or refused? Why? @ -None Did you discuss the management of the patient with other professionals (professionals i.e. , PA, PROGRAM DIRECTOR SUBSTANCE ABUSE, lab, RT, psych nurse, hospice social worker, medical anthropologist, teacher, tax compliance officer, family service caseworker)? Give summary @ -No Was smoking cessation discussed for >3mins.? @ -No Was critical care preformed (if so, how long)? @ -No Were there social determinants of health that impacted care today? How? (Homelessness, low income, unemployed, alcoholism, drug addiction, transportation, low edu. Level, literacy, decrease access to med. care, intermediate, rehab)? @ -No Was there de-escalation of care discussed even if they declined (Discuss DNR or withdrawal of care, Hospice)? DNR status @ -No What co-morbidities impacted this encounter? (DM, HTN, Smoking, COPD, CAD, Cancer, CVA, ARF, Chemo, Hep., AIDS, mental health diagnosis, sleep apnea, morbid obesity)? @ -None Was patient admitted / discharged? Hospital course, mention meds given and route, prescriptions, significant lab abnormalities, going to OR and other pertinent info. @ -42-year-old female presents emergency department for chest pain. Symptoms are atypical with typical features. Laboratory evaluation obtained. Troponin is negative. Rest of labs within acceptable limits. TSH is normal. Disposition options were discussed. Recommended the patient get a second troponin before discharge however she refused and would rather be discharged. Return precautions discussed. Undiagnosed new problem with uncertain prognosis? @ -No Drug Therapy requiring intensive monitoring for toxicity (Heparin, Nitro, Insulin, Cardizem)? @ -No Were any procedures done? @ -No Diagnosis/symptom? Acute, or Chronic, or Acute on Chronic? Uncomplicated (without systemic symptoms) or Complicated (systemic symptoms)? @ -1. Acute chest pain, no high-risk features Side effects of treatment? @ -No Exacerbation, Progression, or Severe Exacerbation? @ -No Poses a threat to life or bodily function? How? (Chest pain, [place], [place], pneumonia, PE, COPD, DKA, ARF, appy, cholecystitis, CVA, Diverticulitis, Homicidal, Suicidal, threat to staff... and all critical care pts) @ -No - Related Data Home Medications Medication Instructions Recorded Confirmed Butalb/APAP/Caff 50-325-40Mg 1 tab PO BID PRN 01/17/16 06/16/22 [Fioricet 50-325-40] Gabapentin [Neurontin] 300 mg PO TID 02/25/21 06/16/22 levETIRAcetam [Keppra Xr] 1,500 mg PO HS@199902/25/21 06/16/22 oxyCODONE-APAP 10-325MG [Percocet 1 tab PO TID 02/25/21 06/16/22 10-325 mg] Amitriptyline HCl [Elavil] 150 mg PO HS 06/16/22 06/16/22 Ergocalciferol [Vitamin D2 (1250 1,250 mcg PO TH 06/16/22 06/16/22 Mcg = 27824 Iu)] Ondansetron [Zofran] 4 mg PO BID PRN 06/16/22 06/16/22 methocarbamoL [Robaxin-750] 750 mg PO TID PRN 06/16/22 06/16/22 Allergies Allergy/AdvReac Type Severity Reaction Status Date / Time Gadolinium-Containing Allergy body turns Verified 06/16/22 22:44 Contrast Medi red, very hot latex Allergy Rash/Hives Verified 06/16/22 22:44 Penicillins Allergy Unknown Verified 06/16/22 22:44 prochlorperazine Allergy very Verified 06/16/22 22:44 [From Compazine] agitated, disoriented propranolol Allergy Swelling Verified 06/16/22 22:44 rimegepant [From Nurtec ODT] Allergy Rash/Hives Verified 06/16/22 22:44 sumatriptan [From Imitrex] Allergy Itching Verified 06/16/22 22:44 aspirin AdvReac Abdominal Verified 06/16/22 22:44 Pain, [place] naproxen AdvReac Abdominal Verified 06/16/22 22:44 Pain vasoconstricters AdvReac has to Uncoded 06/16/22 22:44 avoid due 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 ROS Other: All systems not noted in ROS Statement are negative. Past Medical History Past Medical History: Blood Disorder, Cancer, CVA/TIA, GERD/Reflux, GI Bleed, Hypertension, Musculoskeletal Disorder, Seizure Disorder Additional Past Medical History / Comment(s): Hx occ arrythmia, heart murmur, migraines, IBS, IBD, kidney stones, factor V; blood clot posterior shoulder 1998; cervical cancer. CVA 2007, Rt side sl weaker. Epilesy, has brief daily seizures; last grand mal 2014. Vasculitis, hx aneurysm in brain. 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 History of Any Multi-Drug Resistant Organisms: MRSA Date of last positivie culture/infection: 2005 MDRO Source:: leg Past Surgical History: Appendectomy, Hysterectomy, Orthopedic Surgery Additional Past Surgical History / Comment(s): several abd sx (exp lap-cyst removed from ovaries, kidney, from intestinal wall.) Occipital nerve block, Rt knee meniscus repair. ORIF Rt heel, achilles repair. Past Anesthesia/Blood Transfusion Reactions: Previous Problems w/ Anesthesia, Family History of Problems w/ Anesthesia, Postoperative Nausea & Vomiting (PONV) Additional Past Anesthesia/Blood Transfusion Reaction / Comment(s): Panic attacks, disoriented, takes longer to awaken. Mother is the same way. Past Psychological History: Anxiety, Panic Disorder, PTSD Smoking Status: Former smoker, Vaper - Past Family History Father Additional Family Medical History / Comment(s): LUPUS, FATHERS MOM, AUNT HAD LUPUS Mother Family Medical History: Osteoarthritis (OA), Thyroid Disorder Additional Family Medical History / Comment(s): GOITER, BOARDERLINE DIABETIC,KIDNEY STONE,GALLSTONES Sister(s) Family Medical History: Cancer Additional Family Medical History / Comment(s): breast, cervical cancer General Exam Limitations: no limitations Course Vital Signs 06/16/22 06/16/22 06/16/22 21:54 22:06 23:02 Pulse Rate 76 80 Respiratory 18 20 18 Rate Blood Pressure 110/90 105/80 O2 Sat by Pulse 99 99 Oximetry Medical Decision Making - Lab Data Result diagrams: 06/16/22 22:03 06/16/22 22:03 Lab Results 06/16/22 06/16/22 06/16/22 Range/Units 21:56 22:03 22:03 WBC 6.5 (3.8-10.6) k/uL RBC 4.19 (3.80-5.40) m/uL Hgb 12.8 (11.4-16.0) gm/dL Hct 38.5 (34.0-46.0) % MCV 91.8 (80.0-100.0) fL MCH 30.5 (25.0-35.0) pg MCHC 33.2 (31.0-37.0) g/dL RDW 12.4 (11.5-15.5) % Plt Count 334 (150-450) k/uL MPV 8.3 Neutrophils % 55 % Lymphocytes % 34 % Monocytes % 5 % Eosinophils % 3 % Basophils % 1 % Neutrophils # 3.6 (1.3-7.7) k/uL Lymphocytes # 2.2 (1.0-4.8) k/uL Monocytes # 0.3 (0-1.0) k/uL Eosinophils # 0.2 (0-0.7) k/uL Basophils # 0.1 (0-0.2) k/uL PT 10.1 (9.0-12.0) sec INR 0.9 (<1.2) APTT 26.9 (22.0-30.0) sec Sodium (137-145) mmol/L Potassium (3.5-5.1) mmol/L Chloride (98-107) mmol/L Carbon Dioxide (22-30) mmol/L Anion Gap mmol/L BUN (7-17) mg/dL Creatinine (0.52-1.04) mg/dL Est GFR (CKD-EPI)AfAm (>60 ml/min/1.73 sqM) Est GFR (CKD-EPI)NonAf (>60 ml/min/1.73 sqM) Glucose (74-99) mg/dL POC Glucose (mg/dL) 82 (70-110) mg/dL POC Glu Humidifier Attendant ID [place]ts Calcium (8.4-10.2) mg/dL Magnesium (1.6-2.3) mg/dL Total Bilirubin (0.2-1.3) mg/dL AST (14-36) U/L ALT (4-34) U/L Alkaline Phosphatase (38-126) U/L Troponin I (0.000-0.034) ng/mL Total Protein (6.3-8.2) g/dL Albumin (3.5-5.0) g/dL TSH (0.465-4.680) mIU/L 06/16/22 06/16/22 Range/Units 22:03 22:03 WBC (3.8-10.6) k/uL RBC (3.80-5.40) m/uL Hgb (11.4-16.0) gm/dL Hct (34.0-46.0) % MCV (80.0-100.0) fL MCH (25.0-35.0) pg MCHC (31.0-37.0) g/dL RDW (11.5-15.5) % Plt Count (150-450) k/uL MPV Neutrophils % % Lymphocytes % % Monocytes % % Eosinophils % % Basophils % % Neutrophils # (1.3-7.7) k/uL Lymphocytes # (1.0-4.8) k/uL Monocytes # (0-1.0) k/uL Eosinophils # (0-0.7) k/uL Basophils # (0-0.2) k/uL PT (9.0-12.0) sec INR (<1.2) APTT (22.0-30.0) sec Sodium 138 (137-145) mmol/L Potassium 4.1 (3.5-5.1) mmol/L Chloride 103 (98-107) mmol/L Carbon Dioxide 27 (22-30) mmol/L Anion Gap 8 mmol/L BUN 11 (7-17) mg/dL Creatinine 0.68 (0.52-1.04) mg/dL Est GFR (CKD-EPI)AfAm >90 (>60 ml/min/1.73 sqM) Est GFR (CKD-EPI)NonAf >90 (>60 ml/min/1.73 sqM) Glucose 83 (74-99) mg/dL POC Glucose (mg/dL) (70-110) mg/dL POC Glu Humidifier Attendant ID Calcium 9.8 (8.4-10.2) mg/dL Magnesium 1.9 (1.6-2.3) mg/dL Total Bilirubin 0.2 (0.2-1.3) mg/dL AST 25 (14-36) U/L ALT 27 (4-34) U/L Alkaline Phosphatase 81 (38-126) U/L Troponin I <0.012 (0.000-0.034) ng/mL Total Protein 6.8 (6.3-8.2) g/dL Albumin 4.3 (3.5-5.0) g/dL TSH 0.557 (0.465-4.680) mIU/L Disposition Clinical Impression: Chest pain Disposition: HOME SELF-CARE Condition: Good Instructions (If sedation given, give patient instructions): Chest Pain (ED) Is patient prescribed a controlled substance at d/c from ED?: No Referrals: Rajan Rasheed MD [Primary Care Provider] - 1-2 days Time of Disposition: 11:50
[2022-06-16 22:15] LABS: ALT 27 U/L (4-34); AST 25 U/L (14-36); African American GFR (CKD) >90 (>60 ml/min/1.73 sqM); Albumin 4.3 g/dL (3.5-5.0); Alkaline Phosphatase 81 U/L (38-126); Anion Gap 8 mmol/L; Blood Urea Nitrogen 11 mg/dL (7-17); Calcium 9.8 mg/dL (8.4-10.2); Carbon Dioxide 27 mmol/L (22-30); Chloride 103 mmol/L (98-107); Glucose 83 mg/dL (74-99); Magnesium 1.9 mg/dL (1.6-2.3); Non-African American GFR(CKD) >90 (>60 ml/min/1.73 sqM); Potassium 4.1 mmol/L (3.5-5.1); Sodium 138 mmol/L (137-145); Total Bilirubin 0.2 mg/dL (0.2-1.3); Total Protein 6.8 g/dL (6.3-8.2)
--- NOTE | 2022-06-16 22:34 | XR ---
EXAMINATION TYPE: XR chest 2V DATE OF EXAM: 06/16/2022 COMPARISON: 81 HISTORY: Chest pain TECHNIQUE: Frontal and lateral views of the chest are obtained. FINDINGS: There is no focal air space opacity. No evidence for pneumothorax. No pleural effusion. The cardiac silhouette size is within normal limits. The osseous structures are grossly intact. IMPRESSION: 1. No acute cardiopulmonary process.
[2022-06-16 22:42] LABS: INR 0.9 (<1.2); Partial Thromboplastin Time 26.9 sec (22.0-30.0); Prothrombin Time 10.1 sec (9.0-12.0)
[2022-06-16 23:03] VITALS: PULSE 80; RESP 18
[2022-06-17 00:14] VITALS: BP 111/73
== END 2022-06-17 00:18 | disposition home or self-care (01) ==
LOC: EC 21:36
DX: R07.89 Other chest pain (principal); I10 Essential (primary) hypertension; Z86.73 Personal history of transient ischemic attack (TIA), and cerebral infarction without residual deficits; F41.9 Anxiety disorder, unspecified; F17.290 Nicotine dependence, other tobacco product, uncomplicated; Z88.0 Allergy status to penicillin; Z91.040 Latex allergy status; Z88.8 Allergy status to other drugs, medicaments and biological substances; Z88.6 Allergy status to analgesic agent; Z91.041 Radiographic dye allergy status; Z79.899 Other long term (current) drug therapy
CPT/HCPCS: 36415; 71046; 80053; 83735; 84443; 84484; 85025; 85610; 85730; 93005; 99285

== ENCOUNTER 2023-09-09 17:42 | Observation (INO) | payer OTHER ==
[2023-09-09] MEDS: SODIUM CHLORIDE 0.9% 1,000 ML IV STA (18:11)
[2023-09-09] MEDS: NITROGLYCERIN SL TABS 0.4 MG TAB SUBLINGUAL STA (18:11)
[2023-09-09 18:19] LABS: Basophils # (A) 0.1 k/uL (0-0.2); Basophils % (A) 1 %; Eosinophils # (A) 0.3 k/uL (0-0.7); Eosinophils % (A) 3 %; HCT 42.1 % (34.0-46.0); HGB 13.2 gm/dL (11.4-16.0); Lymphocytes # (A) 2.1 k/uL (1.0-4.8); Lymphocytes % (A) 23 %; MCH 30.4 pg (25.0-35.0); MCHC 31.4 g/dL (31.0-37.0); MCV 97.1 fL (80.0-100.0); Mean Platelet Volume 8.5; Monocytes # (A) 0.3 k/uL (0-1.0); Monocytes % (A) 4 %; Neutrophils # (A) 6.1 k/uL (1.3-7.7); Neutrophils % (A) 68 %; Platelet Count 355 k/uL (150-450); RBC 4.33 m/uL (3.80-5.40); RDW 13.1 % (11.5-15.5)
[2023-09-09 18:32] LABS: ALT 16 U/L (4-34); African American GFR (CKD) >90 (>60 ml/min/1.73 sqM); Albumin 4.2 g/dL (3.5-5.0); Anion Gap 7 mmol/L; Blood Urea Nitrogen 8 mg/dL (7-17); Calcium 9.6 mg/dL (8.4-10.2); Carbon Dioxide 24 mmol/L (22-30); Chloride 108 mmol/L (98-107); Glucose 66 mg/dL (74-99); Lipase 112 U/L (23-300); Non-African American GFR(CKD) >90 (>60 ml/min/1.73 sqM); Sodium 139 mmol/L (137-145); Total Bilirubin 0.5 mg/dL (0.2-1.3); Total Protein 6.8 g/dL (6.3-8.2)
[2023-09-09 18:36] LABS: INR 0.9 (<1.2); Partial Thromboplastin Time 25.5 sec (22.0-30.0); Prothrombin Time 10.2 sec (10.0-12.5)
--- NOTE | 2023-09-09 18:36 | XR ---
EXAMINATION TYPE: XR chest 2V DATE OF EXAM: 09/09/2023 6:21 PM CLINICAL INDICATION:Female, 43 years old with history of Chest Pain; [facility] COMPARISON: Chest radiographs from 06/16/2022. TECHNIQUE: XR chest 2V Frontal and lateral views of the chest. FINDINGS: Lungs/Pleura: There is no evidence of pleural effusion, focal consolidation, or pneumothorax. Pulmonary vascularity: Unremarkable. Heart/mediastinum: Cardiomediastinal silhouette is unremarkable. Musculoskeletal: No acute osseous pathology. IMPRESSION: No acute cardiopulmonary disease/process.
[2023-09-09] MEDS: LORazepam 1 MG TAB PO STA (19:04)
[2023-09-09] MEDS: MORPHINE SULFATE 4 MG/ML SYRINGE IVP STA (19:04)
[2023-09-09 19:05] LABS: AST 26 U/L (14-36); Alkaline Phosphatase 64 U/L (38-126); Magnesium 1.8 mg/dL (1.6-2.3); Potassium 4.7 mmol/L (3.5-5.1)
[2023-09-09] MEDS ORDERED: NALOXONE 0.4 MG/ML 1 ML VIAL IV PRN (20:00)
[2023-09-09] MEDS ORDERED: DICYCLOMINE 10 MG CAP PO PRN (20:02)
[2023-09-09] MEDS ORDERED: DICYCLOMINE 20 MG TAB PO PRN (20:02)
--- NOTE | 2023-09-09 20:08 | ED ---
General Adult HPI - General Chief complaint: Chest Pain Stated complaint: chest pain Time Seen by Provider: 09/09/23 17:55 Source: patient, RN notes reviewed, old records reviewed Mode of arrival: EMS Limitations: no limitations - History of Present Illness Initial comments: Patient is a 43-year-old female presents emergency department complaining of chest pain. Patient states this pain is intermittent and somewhat chronic for her but more frequent over the last week. He does have some typical features that she states that it radiates to her neck as well as shoulder occasionally. Currently complaining only of substernal chest discomfort. Did not respond to nitroglycerin tablets prior to arrival. Has been seen here in the past for similar pain and discharged home. States it has been more frequent lately over the last week or so and comes and goes without any known palliative or provocative factors. No nausea or vomiting. No diaphoresis. States her heart rate was high at home as well. Does have a significant neurologic history. Presents for further evaluation at this time. No history of cardiac stents. - Related Data Home Medications Medication Instructions Recorded Confirmed Butalb/APAP/Caff 50-325-40Mg 1 tab PO Q6H PRN 01/17/16 09/09/23 [Fioricet 50-325-40] Gabapentin [Neurontin] 300 mg PO BID 02/25/21 09/09/23 levETIRAcetam [Keppra Xr] 1,500 mg PO HS 02/25/21 09/09/23 oxyCODONE-APAP 10-325MG [Percocet 1 tab PO BID 02/25/21 09/09/23 10-325 mg] Amitriptyline HCl [Elavil] 150 mg PO HS 06/16/22 09/09/23 methocarbamoL [Robaxin-750] 750 mg PO HS 06/16/22 09/09/23 Brimonidine Tartrate [Alphagan P 1 drop BOTH EYES BID 09/09/23 09/09/23 0.2% Ophth Soln] Dicyclomine [Bentyl] 10 mg PO DIRECTED PRN 09/09/23 09/09/23 Dicyclomine [Bentyl] 20 mg PO DIRECTED PRN 09/09/23 09/09/23 Ibuprofen/Acetaminophen [Advil 2 tab PO Q8H PRN 09/09/23 09/09/23 Dual Action 125MG(IBU)-250MG(ACET)] Prednisolone Acetate/Pf 1 drop BOTH EYES Q4H 09/09/23 09/09/23 [Prednisolone Acet 1% Eye Drop] Rimegepant Sulfate [Nurtec Odt] 75 mg PO Q2D PRN 09/09/23 09/09/23 methocarbamoL [Robaxin-750] 750 mg PO BID PRN 09/09/23 09/09/23 oxyCODONE-APAP 10-325MG [Percocet 1 tab PO DAILY PRN 09/09/23 09/09/23 10-325 mg] Allergies Allergy/AdvReac Type Severity Reaction Status Date / Time Gadolinium-Containing Allergy body turns Verified 06/16/22 22:44 Contrast Medi red, very hot latex Allergy Rash/Hives Verified 06/16/22 22:44 Penicillins Allergy Unknown Verified 06/16/22 22:44 prochlorperazine Allergy very Verified 06/16/22 22:44 [From Compazine] agitated, disoriented propranolol Allergy Swelling Verified 06/16/22 22:44 rimegepant [From Nurtec ODT] Allergy Rash/Hives Verified 06/16/22 22:44 sumatriptan [From Imitrex] Allergy Itching Verified 06/16/22 22:44 aspirin AdvReac Abdominal Verified 06/16/22 22:44 Pain, [place] naproxen AdvReac Abdominal Verified 06/16/22 22:44 Pain vasoconstricters AdvReac has to Uncoded 06/16/22 22:44 avoid due 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 Review of Systems: CONST: Denies fever EYES: Denies blurry vision ENT: Denies nasal congestion C/V: Endorses chest pain RESP: Denies shortness of breath GI: Denies abdominal pain : Denies dysuria SKIN: Denies rash. MSK: Denies joint pain. NEURO: Denies headache ROS Other: All systems not noted in ROS Statement are negative. Past Medical History Past Medical History: Blood Disorder, Cancer, CVA/TIA, GERD/Reflux, GI Bleed, Hypertension, Musculoskeletal Disorder, Seizure Disorder Additional Past Medical History / Comment(s): Hx occ arrythmia, heart murmur, migraines, IBS, IBD, kidney stones, factor V; blood clot posterior shoulder 1998; cervical cancer. CVA 2007, Rt side sl weaker. Epilesy, has brief daily seizures; last grand mal 2014. Vasculitis, hx aneurysm in brain. 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 History of Any Multi-Drug Resistant Organisms: MRSA Date of last positivie culture/infection: 2005 MDRO Source:: leg Past Surgical History: Appendectomy, Hysterectomy, Orthopedic Surgery Additional Past Surgical History / Comment(s): several abd sx (exp lap-cyst removed from ovaries, kidney, from intestinal wall.) Occipital nerve block, Rt knee meniscus repair. ORIF Rt heel, achilles repair. Past Anesthesia/Blood Transfusion Reactions: Previous Problems w/ Anesthesia, Family History of Problems w/ Anesthesia, Postoperative Nausea & Vomiting (PONV) Additional Past Anesthesia/Blood Transfusion Reaction / Comment(s): Panic attacks, disoriented, takes longer to awaken. Mother is the same way. Past Psychological History: Anxiety, Panic Disorder, PTSD Smoking Status: Former smoker, Vaper - Past Family History Father Additional Family Medical History / Comment(s): LUPUS, FATHERS MOM, AUNT HAD LUPUS Mother Family Medical History: Osteoarthritis (OA), Thyroid Disorder Additional Family Medical History / Comment(s): GOITER, BOARDERLINE DIABETIC,KIDNEY STONE,GALLSTONES Sister(s) Family Medical History: Cancer Additional Family Medical History / Comment(s): breast, cervical cancer General Exam - General Exam Comments Initial Comments: General: Appears anxious. HEAD: Normal with no signs of head trauma. EYES: PERRLA, EOMI, conjunctiva normal, no discharge. ENT: Hearing grossly intact, normal oropharynx. RESPIRATORY: Clear breath sounds bilaterally. No wheezes, rales, or rhonchi. C/V: Regular rate and rhythm. S1 and S2 auscultated, no edema, peripheral pulses 2+ and intact throughout. Chest pain not reproducible on palpation. ABD: Abd is soft, nontender, nondistended EXT: Normal range of motion, no obvious deformity SKIN: No rashes or lesions observed on exposed skin. NEURO: Alert and oriented x 4. Cranial nerves II-XII intact. No focal sensory or strength deficits. Limitations: no limitations Course Vital Signs 09/09/23 09/09/23 17:47 20:47 Temperature 98.8 F Pulse Rate 119 H 88 Respiratory 18 18 Rate Blood Pressure 130/89 133/90 O2 Sat by Pulse 97 99 Oximetry Medical Decision Making - Medical Decision Making Was pt. sent in by a medical professional or institution (AUGUSTINA Marsh, PHYSICIAN PRESIDENT, urgent care, hospital, or shelter...) When possible be specific @ -No Did you speak to anyone other than the patient for history (EMS, parent, family, police, friend...)? What history was obtained from this source @ -No Did you review nursing and triage notes (agree or disagree)? Why? @ -I reviewed and agree with nursing and triage notes Were old charts reviewed (outside hosp., previous admission, EMS record, old EKG, old radiological studies, urgent care reports/EKG's, shelter records)? Report findings @ -Old charts reviewed including from June 2022 when patient presented with similar complaints. At that time unremarkable. No significant EKG changes since that visit. Differential Diagnosis (chest pain, altered mental status, abdominal pain women, abdominal pain men, vaginal bleeding, weakness, fever, dyspnea, syncope, headache, dizziness, GI bleed, back pain, seizure, CVA, palpatations, mental health, musculoskeletal)? @ -Differential Chest Pain: Stable Angina, Unstable Angina, STEMI, NSTEMI Aortic Dissection, Pneumothorax, Musculoskeletal, Esophageal Spasm GERD, Cholecystitis, Pancreatitis, Zoster, this is not meant to be an all-inclusive list. EKG interpreted by me (3pts min.). @ -As above X-rays interpreted by me (1pt min.). @ -Chest x-ray reveals no obvious acute cardiopulmonary process. CT interpreted by me (1pt min.). @ -None done U/S interpreted by me (1pt. min.). @ -None done What testing was considered but not performed or refused? (CT, X-rays, U/S, labs)? Why? @ -None What meds were considered but not given or refused? Why? @ -Considered aspirin however patient is allergic. Patient will be given Plavix instead. Did you discuss the management of the patient with other professionals (dereck tapia i.e. AUGUSTINA Marsh, PHYSICIAN PRESIDENT, lab, RT, psych nurse, dialysis social worker, hydraulic technician, teacher, disability hearing officer, family caseworker)? Give summary @ -Discussed with Dr. Stephens who accepted the admission. He is covering for Dr. Rasheed Was smoking cessation discussed for >3mins.? @ -No Was critical care preformed (if so, how long)? @ -No Were there social determinants of health that impacted care today? How? (Homelessness, low income, unemployed, alcoholism, drug addiction, transportation, low edu. Level, literacy, decrease access to med. care, group home, rehab)? @ -No Was there de-escalation of care discussed even if they declined (Discuss DNR or withdrawal of care, Hospice)? DNR status @ -No What co-morbidities impacted this encounter? (DM, HTN, Smoking, COPD, CAD, Cancer, CVA, ARF, Chemo, Hep., AIDS, mental health diagnosis, sleep apnea, morbid obesity)? @ -None Was patient admitted / discharged? Hospital course, mention meds given and route, prescriptions, significant lab abnormalities, going to OR and other pertinent info. @ -Patient presents with on again off again chest pain that is chronic however worse over the last few days. Patient is chronically on Percocet. He has a significant neurologic history. Patient received multiple nitroglycerin tablets from EMS with no acute change. We will administer a third nitro to see if there is any change. She was in agreement this plan. She is allergic to aspirin and refuses it at this time. We will obtain cardiac workup. She was in agreement this plan. EKG shows no signs of acute ischemia. Laboratory studies are unremarkable including undetectable troponin. Glucose is minimally decreased to 66 and we will repeat Accu-Chek, which returned within acceptable limits.. Chest x-ray unremarkable. Following nitro tablet, no change in pain. Following morphine, patient did have some pain relief. I discussed results with the patient. Her chest pain is somewhat atypical with some typical symptoms and I did recommend admission observation for troponin trending and cardiology evaluation, despite her chest pain being a chronic issue for her. She was in agreement this plan. Vital signs are within acceptable limits at time of admission. Spoke with the admitting physician, Dr. Stephens who accepted the admission. He is coming for Dr. Rasheed. Patient given a dose of Plavix. Patient started on Dilaudid for analgesia. EKG shows no signs of acute ischemia. No dynamic changes. Undiagnosed new problem with uncertain prognosis? @ -No Drug Therapy requiring intensive monitoring for toxicity (Heparin, Nitro, Insulin, Cardizem)? @ -No Were any procedures done? @ -No Diagnosis/symptom? @ -Chest pain Acute, or Chronic, or Acute on Chronic? @ -Acute on chronic Uncomplicated (without systemic symptoms) or Complicated (systemic symptoms)? @ -Complicated Side effects of treatment? @ -No Exacerbation, Progression, or Severe Exacerbation? @ -No Poses a threat to life or bodily function? How? (Chest pain, [place], [place], pneumonia, PE, COPD, DKA, ARF, appy, cholecystitis, CVA, Diverticulitis, Homicidal, Suicidal, threat to staff... and all critical care pts) @ -Possibly, yes - Lab Data Result diagrams: 09/09/23 18:08 09/09/23 18:08 Lab Results 09/09/23 09/09/23 09/09/23 Range/Units 18:08 18:08 18:08 WBC 9.0 (3.8-10.6) k/uL RBC 4.33 (3.80-5.40) m/uL Hgb 13.2 (11.4-16.0) gm/dL Hct 42.1 (34.0-46.0) % MCV 97.1 (80.0-100.0) fL MCH 30.4 (25.0-35.0) pg MCHC 31.4 (31.0-37.0) g/dL RDW 13.1 (11.5-15.5) % Plt Count 355 (150-450) k/uL MPV 8.5 Neutrophils % 68 % Lymphocytes % 23 % Monocytes % 4 % Eosinophils % 3 % Basophils % 1 % Neutrophils # 6.1 (1.3-7.7) k/uL Lymphocytes # 2.1 (1.0-4.8) k/uL Monocytes # 0.3 (0-1.0) k/uL Eosinophils # 0.3 (0-0.7) k/uL Basophils # 0.1 (0-0.2) k/uL PT 10.2 (10.0-12.5) sec INR 0.9 (<1.2) APTT 25.5 (22.0-30.0) sec Sodium 139 (137-145) mmol/L Potassium 4.7 (3.5-5.1) mmol/L Chloride 108 H (98-107) mmol/L Carbon Dioxide 24 (22-30) mmol/L Anion Gap 7 mmol/L BUN 8 (7-17) mg/dL Creatinine 0.63 (0.52-1.04) mg/dL Est GFR (CKD-EPI)AfAm >90 (>60 ml/min/1.73 sqM) Est GFR (CKD-EPI)NonAf >90 (>60 ml/min/1.73 sqM) Glucose 66 L (74-99) mg/dL Calcium 9.6 (8.4-10.2) mg/dL Magnesium 1.8 (1.6-2.3) mg/dL Total Bilirubin 0.5 (0.2-1.3) mg/dL AST 26 (14-36) U/L ALT 16 (4-34) U/L Alkaline Phosphatase 64 (38-126) U/L Troponin I (0.000-0.034) ng/mL Total Protein 6.8 (6.3-8.2) g/dL Albumin 4.2 (3.5-5.0) g/dL Lipase 112 (23-300) U/L 09/09/23 Range/Units 18:08 WBC (3.8-10.6) k/uL RBC (3.80-5.40) m/uL Hgb (11.4-16.0) gm/dL Hct (34.0-46.0) % MCV (80.0-100.0) fL MCH (25.0-35.0) pg MCHC (31.0-37.0) g/dL RDW (11.5-15.5) % Plt Count (150-450) k/uL MPV Neutrophils % % Lymphocytes % % Monocytes % % Eosinophils % % Basophils % % Neutrophils # (1.3-7.7) k/uL Lymphocytes # (1.0-4.8) k/uL Monocytes # (0-1.0) k/uL Eosinophils # (0-0.7) k/uL Basophils # (0-0.2) k/uL PT (10.0-12.5) sec INR (<1.2) APTT (22.0-30.0) sec Sodium (137-145) mmol/L Potassium (3.5-5.1) mmol/L Chloride (98-107) mmol/L Carbon Dioxide (22-30) mmol/L Anion Gap mmol/L BUN (7-17) mg/dL Creatinine (0.52-1.04) mg/dL Est GFR (CKD-EPI)AfAm (>60 ml/min/1.73 sqM) Est GFR (CKD-EPI)NonAf (>60 ml/min/1.73 sqM) Glucose (74-99) mg/dL Calcium (8.4-10.2) mg/dL Magnesium (1.6-2.3) mg/dL Total Bilirubin (0.2-1.3) mg/dL AST (14-36) U/L ALT (4-34) U/L Alkaline Phosphatase (38-126) U/L Troponin I <0.012 (0.000-0.034) ng/mL Total Protein (6.3-8.2) g/dL Albumin (3.5-5.0) g/dL Lipase (23-300) U/L - EKG Data -: EKG Interpreted by Me EKG Comments: 12-lead Electrocardiogram Interpretation Note EKG was reviewed and interpreted by myself. 12-lead ECG performed at 1749 is interpreted by me as revealing sinus tachycardia at a rate of 118 beats per minute. [place] is normal. [place] interval is 135 ms, QRS duration 77 ms, QTc is 384 ms.. There were no ST or T wave abnormalities to suggest myocardial ischemia or injury. R wave progression across the precordium was satisfactory. By my interpretation this EKG is non-diagnostic for acute ischemia. 12-lead Electrocardiogram Interpretation Note EKG was reviewed and interpreted by myself. 12-lead ECG performed at 2020 is interpreted by me as revealing normal sinus rhythm at a rate of 87 beats per minute. [place] is normal. [place] interval is 147 ms, QRS duration is 85 ms, QTc is 379 ms.. There were no ST or T wave abnormalities to suggest myocardial ischemia or injury. R wave progression across the precordium was satisfactory. By my interpretation this EKG is non-diagnostic for acute ischemia. Disposition Clinical Impression: Chest pain Disposition: ADMITTED IP TO THIS [facility] Condition: Stable Time of Disposition: 20:00
[2023-09-09 20:40] LABS: Glucose,Whole Blood 74 mg/dL (70-110)
[2023-09-09] MEDS: HYDROmorphone 1 MG/ML 1 ML SYRINGE IVP STA (20:41)
[2023-09-09] MEDS: AMITRIPTYLINE HCL 50 MG TAB PO SCH (22:07)
[2023-09-09] MEDS: BRIMONIDINE TARTRATE 0.2% DROPS 5 ML BTL BOTH EYES SCH (22:08)
[2023-09-09] MEDS: HEPARIN SODIUM,PORCINE 5,000 UNIT/ML 1 ML VIAL SQ SCH (22:08)
[2023-09-09] MEDS: methocarbamoL 750 MG TAB PO SCH (22:08)
[2023-09-09 22:10] VITALS: PULSE 96
[2023-09-09] MEDS: GABAPENTIN 300 MG CAP PO SCH (22:23)
[2023-09-09] MEDS: SODIUM CHLORIDE 0.9% 1,000 ML IV SCH (22:25)
[2023-09-09] MEDS ORDERED: ACETAMINOPHEN TAB 325 MG TAB PO PRN (22:55)
[2023-09-09] MEDS: HYDROmorphone 1 MG/ML 1 ML SYRINGE IVP PRN (23:43)
[2023-09-10] MEDS: CLOPIDOGREL 75 MG TAB PO STA (00:48)
[2023-09-10] MEDS: LEVETIRACETAM 750 MG PO SCH (00:53)
[2023-09-10 08:04] VITALS: BP 116/81; RESP 20; TEMP 98
[2023-09-10] MEDS ORDERED: NON FORMULARY DRUG (Rimegepant Sulfate [Nurtec Odt] 75 MG Tablet) PO PRN (08:36)
[2023-09-10] MEDS ORDERED: BUTALB/APAP/CAFF 50-325-40MG TAB PO PRN (08:36)
[2023-09-10 08:46] LABS: Basophils # (A) 0.04 X 10*3/uL (0.00-0.10); Basophils % (A) 0.4 %; Eosinophils # (A) 0.15 X 10*3/uL (0.04-0.35); Eosinophils % (A) 1.7 %; HCT 35.4 % (37.2-46.3); HGB 11.2 g/dL (12.0-15.0); Lymphocytes # (A) 1.87 X 10*3/uL (0.90-5.00); Lymphocytes % (A) 20.8 %; MCH 30.5 pg (27.0-32.0); MCHC 31.6 g/dL (32.0-37.0); MCV 96.5 FL (80.0-97.0); Mean Platelet Volume 11.1 FL (9.5-12.2); Monocytes # (A) 0.62 X 10*3/uL (0.20-1.00); Monocytes % (A) 6.9 %; NRBC Per 100 WBC 0 X 10*3/uL (0.00-0.01); Neutrophils # (A) 6.28 X 10*3/uL (1.80-7.70); Platelet Count 329 X 10*3/uL (140-440); RBC 3.67 X 10*6/uL (4.10-5.20); RDW 13.4 % (11.5-14.5); WBC 8.98 X 10*3/uL (4.50-10.00)
[2023-09-10] MEDS: ONDANSETRON 4 MG/2 ML VIAL IVP PRN (08:55)
[2023-09-10] MEDS: prednisoLONE ACETATE 1% OPHTH DROPS 5 ML BTL BOTH EYES SCH (08:56)
[2023-09-10 09:00] LABS: ALT 14 U/L (8-44); AST 18 U/L (13-35); Albumin 3.9 g/dL (3.8-4.9); Albumin/Globulin Ratio 2.17 Ratio (1.60-3.17); Alkaline Phosphatase 76 U/L (41-126); Blood Urea Nitrogen 5.6 mg/dL (9.0-27.0); Calcium 8.7 mg/dL (8.7-10.3); Carbon Dioxide 23.8 mmol/L (21.6-31.8); Chloride 106 mmol/L (96-109); Globulin 1.8 g/dL (1.6-3.3); Glucose 98 mg/dL (70-110); Potassium 3.7 mmol/L (3.5-5.5); Sodium 139 mmol/L (135-145); Total Bilirubin 0.2 mg/dL (0.3-1.2); Total Protein 5.7 g/dL (6.2-8.2)
[2023-09-10] MEDS: ACETAMINOPHEN IV (For NPO) 1,000 MG in EMPTY BAG 1 BAG IVPB STA (09:24)
[2023-09-10] MEDS: PANTOPRAZOLE 40 MG/10 ML VIAL IVP SCH (09:26)
[2023-09-10] MEDS ORDERED: LEVETIRACETAM 750 MG PO SCH (09:32)
[2023-09-10] MEDS: methocarbamoL 750 MG TAB PO PRN (09:34)
--- NOTE | 2023-09-10 09:54 | P.CRDCN ---
History of Present Illness History of present illness: HISTORY OF PRESENT ILLNESS: This is a 43-year-old female with a past medical history significant for anxiety, PTSD, CVA, and epilepsy. Patient follows in the office with Dr. Alegria. We have been asked to see the patient in consultation for chest pain. Patient examined at the bedside. Patient presented to the hospital for chief complaint of chest pain. Patient states she has been having chest pain on and off for the past week. She states the pain is not worse with exertion. She does report that the pain is worse with deep inspiration and worse with sneezing. She states she has had pain like this before but it has never been this intense. Patient is also having pain with chest wall palpation. Patient appears very uncomfortable this morning and is holding her chest and moaning while attempting to sit up in bed. DIAGNOSTICS: - EKG reveals sinus tachycardia with no signs of acute ischemia. - Chest xray negative for acute process. - Laboratory data: WBC 8.98. Hemoglobin 11.2. Platelet count 329. D-dimer 0.41. Sodium 139. Potassium 3.7. BUN 5.6. Creatinine 0.7. Troponin negative x 3. - Current home cardiac medications include none. - Most recent echocardiogram obtained in September 2022 revealed ejection fraction 55%, mild MR, mild TR REVIEW OF SYSTEMS: At the time of my exam: CONSTITUTIONAL: Denies fever or chills. HEENT: Denies blurred vision, vision changes, or eye pain. Denies hemoptysis CARDIOVASCULAR: Denies chest pain. Denies orthopnea. Denies PND. Denies palpitations RESPIRATORY: Denies shortness of breath. GASTROINTESTINAL: Denies abdominal pain. Denies nausea or vomiting. HEMATOLOGIC: Denies bleeding disorders. GENITOURINARY: Denies any blood in urine. SKIN: Denies pruitis. Denies rash. PHYSICAL EXAM: VITAL SIGNS: Reviewed. GENERAL: Well-developed in no acute distress. HEENT: Head is normocephalic. Pupils are equal, round. Sclerae anicteric. Mucous membranes of the mouth are moist. Neck supple. No JVD or thyromegaly LUNGS: Respirations even and unlabored. Lungs essentially clear to auscultation bilaterally. HEART: Regular rate and rhythm. S1 and S2 heard. ABDOMEN: Soft. Nondistended. Nontender. EXTREMITIES: Normal range of motion. No clubbing or cyanosis. Peripheral pulses intact. No lower extremity edema NEUROLOGIC: Awake and alert. Oriented x 3. ASSESSMENT: Chest pain, noncardiac, troponin negative x 3 History of epilepsy History of CVA History of anxiety History of PTSD Former nicotine dependence PLAN: An acute coronary event has been ruled out No further inpatient recommendations from a cardiac standpoint We will sign off. Please reconsult if needed. Nurse practitioner note has been reviewed by physician. Signing provider agrees with the documented findings, assessment, and plan of care documented by COMMAND AND CONTROL SYSTEMS INTEGRATOR as a scribe. Past Medical History Past Medical History: Blood Disorder, Cancer, CVA/TIA, GERD/Reflux, GI Bleed, Hypertension, Musculoskeletal Disorder, Seizure Disorder Additional Past Medical History / Comment(s): Hx occ arrythmia, heart murmur, migraines, IBS, IBD, kidney stones, factor V; blood clot posterior shoulder 1998; cervical cancer. CVA 2007, Rt side sl weaker. Epilesy, has brief daily seizures; last grand mal 2014. Vasculitis, hx aneurysm in brain. 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 ORIF Rt heel, achilles repair. Past Anesthesia/Blood Transfusion Reactions: Previous Problems w/ Anesthesia, Family History of Problems w/ Anesthesia, Postoperative Nausea & Vomiting (PONV) Additional Past Anesthesia/Blood Transfusion Reaction / Comment(s): Panic att acks, disoriented, takes longer to awaken. Mother is the same way. Past Psychological History: Anxiety, Panic Disorder, PTSD Smoking Status: Former smoker, Vaper Past Alcohol Use History: Rare Additional Past Alcohol Use History / Comment(s): Started smoking 2005, up to 1/2 ppd, quit 2019; occ vape Past Drug Use History: Marijuana Additional Drug Use History / Comment(s): uses edibles occ - Past Family History Father Additional Family Medical History / Comment(s): LUPUS, FATHERS MOM, AUNT HAD LUPUS Mother Family Medical History: Osteoarthritis (OA), Thyroid Disorder Additional Family Medical History / Comment(s): GOITER, BOARDERLINE DIABETIC,KIDNEY STONE,GALLSTONES Sister(s) Family Medical History: Cancer Additional Family Medical History / Comment(s): breast, cervical cancer Medications and Allergies Home Medications Medication Instructions Recorded Confirmed Type Butalb/APAP/Caff 50-325-40Mg 1 tab PO Q6H PRN 01/17/16 09/09/23 History [Fioricet 50-325-40] Gabapentin [Neurontin] 300 mg PO BID 02/25/21 09/09/23 History levETIRAcetam [Keppra Xr] 1,500 mg PO HS 02/25/21 09/09/23 History oxyCODONE-APAP 10-325MG [Percocet 1 tab PO BID 02/25/21 09/09/23 History 10-325 mg] Amitriptyline HCl [Elavil] 150 mg PO HS 06/16/22 09/09/23 History methocarbamoL [Robaxin-750] 750 mg PO HS 06/16/22 09/09/23 History Brimonidine Tartrate [Alphagan P 1 drop BOTH EYES BID 09/09/23 09/09/23 History 0.2% Ophth Soln] Dicyclomine [Bentyl] 10 mg PO DIRECTED PRN 09/09/23 09/09/23 History Dicyclomine [Bentyl] 20 mg PO DIRECTED PRN 09/09/23 09/09/23 History Ibuprofen/Acetaminophen [Advil 2 tab PO Q8H PRN 09/09/23 09/09/23 History Dual Action 125MG(IBU)-250MG(ACET)] Prednisolone Acetate/Pf 1 drop BOTH EYES Q4H 09/09/23 09/09/23 History [Prednisolone Acet 1% Eye Drop] Rimegepant Sulfate [Nurtec Odt] 75 mg PO Q2D PRN 09/09/23 09/09/23 History methocarbamoL [Robaxin-750] 750 mg PO BID PRN 09/09/23 09/09/23 History oxyCODONE-APAP 10-325MG [Percocet 1 tab PO DAILY PRN 09/09/23 09/09/23 History 10-325 mg] Allergies Allergy/AdvReac Type Severity Reaction Status Date / Time Gadolinium-Containing Allergy body turns Verified 06/16/22 22:44 Contrast Medi red, very hot latex Allergy Rash/Hives Verified 06/16/22 22:44 Penicillins Allergy Unknown Verified 06/16/22 22:44 prochlorperazine Allergy very Verified 06/16/22 22:44 [From Compazine] agitated, disoriented propranolol Allergy Swelling Verified 06/16/22 22:44 rimegepant [From Nurtec ODT] Allergy Rash/Hives Verified 06/16/22 22:44 sumatriptan [From Imitrex] Allergy Itching Verified 06/16/22 22:44 aspirin AdvReac Abdominal Verified 06/16/22 22:44 Pain, [place] naproxen AdvReac Abdominal Verified 06/16/22 22:44 Pain vasoconstricters AdvReac has to Uncoded 06/16/22 22:44 avoid due vasculitis in brain Physical Exam Vitals: Vital Signs Temp Pulse Pulse Resp BP BP BP 09/10/23 07:00 98.0 F 96 20 116/81 09/10/23 02:33 98.7 F 96 16 106/73 09/10/23 02:00 96 09/09/23 22:09 99.3 F 96 18 116/81 09/09/23 20:47 88 18 133/90 09/09/23 17:47 98.8 F 119 H 18 130/89 Pulse Ox 09/10/23 07:00 100 09/10/23 02:33 99 09/10/23 02:00 09/09/23 22:09 99 09/09/23 20:47 99 09/09/23 17:47 97 Intake and Output 09/09/23 09/10/23 09/10/23 22:59 06:59 14:59 Other: Voiding Method Bedside Commode # Voids 0 0 Weight 65.771 kg Results 09/10/23 02:40 09/10/23 02:40 Cardiac Enzymes 09/09/23 09/09/23 09/09/23 Range/Units 18:08 18:08 22:23 AST 26 (14-36) U/L Troponin I <0.012 <0.012 (0.000-0.034) ng/mL 09/10/23 09/10/23 Range/Units 02:40 02:40 AST 18 (14-36) U/L Troponin I <0.012 (0.000-0.034) ng/mL Coagulation 09/09/23 Range/Units 18:08 PT 10.2 (10.0-12.5) sec APTT 25.5 (22.0-30.0) sec CBC 09/09/23 09/10/23 Range/Units 18:08 02:40 WBC 9.0 8.98 (3.8-10.6) k/uL RBC 4.33 3.67 L (3.80-5.40) m/uL Hgb 13.2 11.2 L (11.4-16.0) gm/dL Hct 42.1 35.4 L (34.0-46.0) % Plt Count 355 329 (150-450) k/uL Comprehensive Metabolic Panel 09/09/23 09/10/23 Range/Units 18:08 02:40 Sodium 139 139 (137-145) mmol/L Potassium 4.7 3.7 (3.5-5.1) mmol/L Chloride 108 H 106 (98-107) mmol/L Carbon Dioxide 24 23.8 (22-30) mmol/L BUN 8 5.6 L (7-17) mg/dL Creatinine 0.63 0.7 (0.52-1.04) mg/dL Glucose 66 L 98 (74-99) mg/dL Calcium 9.6 8.7 (8.4-10.2) mg/dL AST 26 18 (14-36) U/L ALT 16 14 (4-34) U/L Alkaline Phosphatase 64 76 (38-126) U/L Total Protein 6.8 5.7 L (6.3-8.2) g/dL Albumin 4.2 3.9 (3.5-5.0) g/dL Current Medications Generic Name Dose Route Start Last Admin Trade Name Freq PRN Reason Stop Dose Admin Acetaminophen 650 mg 09/09/23 22:55 Acetaminophen Tab 325 Mg Tab PO Q6HR PRN Fever and/ or Pain Acetaminophen/Butalbital/Caffeine 1 each 09/10/23 08:36 Butalb/Apap/Caff 50-325-40mg Tab PO Q6H PRN Migraine Headache Amitriptyline HCl 150 mg 09/09/23 21:00 09/09/23 22:07 Amitriptyline Hcl 50 Mg Tab PO 150 mg HS SEEMA Administration Brimonidine Tartrate 1 drops 09/09/23 21:00 09/10/23 09:35 Brimonidine Tartrate 0.2% Drops 5 Ml Btl BOTH EYES 1 drops BID SEEMA Administration Gabapentin 300 mg 09/09/23 21:00 09/10/23 09:38 Gabapentin 300 Mg Cap PO 300 mg BID SEEMA Administration Heparin Sodium (Porcine) 5,000 unit 09/10/23 00:00 09/10/23 09:33 Heparin Sodium,Porcine 5,000 Unit/Ml 1 Ml Vial SQ 5,000 unit Q8HR SEEMA Administration Hydromorphone HCl 1 mg 09/09/23 20:00 09/10/23 08:41 Hydromorphone 1 Mg/Ml 1 Ml Syringe IVP 1 mg Q3HR PRN Administration Severe Pain (Scale 7 to 10) Sodium Chloride 1,000 mls @ 75 mls/hr 09/09/23 20:00 09/09/23 22:25 Saline 0.9% IV 75 mls/hr .[id number] SEEMA Administration Methocarbamol 750 mg 09/09/23 20:02 09/10/23 09:34 Methocarbamol 750 Mg Tab PO 750 mg BID PRN Administration Muscle Spasm Methocarbamol 750 mg 09/09/23 21:00 09/09/23 22:08 Methocarbamol 750 Mg Tab PO 750 mg HS SEEMA Administration Naloxone HCl 0.2 mg 09/09/23 20:00 Naloxone 0.4 Mg/Ml 1 Ml Vial IV Q2M PRN Opioid Reversal Non-Formulary Medication 75 mg 09/10/23 08:36 Rimegepant Sulfate [Nurtec Odt] PO Q2D PRN Migraine Headache Levetiracetam ( 2 each 09/10/23 09:32 Keppra) Xr 750mg Tab PO HS SEEMA Ondansetron HCl 4 mg 09/09/23 20:00 09/10/23 08:55 Ondansetron 4 Mg/2 Ml Vial IVP 4 mg Q8HR PRN Administration Nausea And Vomiting Pantoprazole Sodium 40 mg 09/10/23 09:00 09/10/23 09:26 Pantoprazole 40 Mg/10 Ml Vial IVP 40 mg DAILY SEEMA Administration Prednisolone Acetate 1 drops 09/10/23 08:45 09/10/23 08:56 Prednisolone Acetate 1% Ophth Drops 5 Ml Btl BOTH EYES 1 drops Q4HR SEEMA Administration Intake and Output 09/09/23 09/10/23 09/10/23 22:59 06:59 14:59 Other: Voiding Method Bedside Commode # Voids 0 0 Weight 65.771 kg 09/10/23 02:40 09/10/23 02:40
--- NOTE | 2023-09-10 10:46 | P.HPIM ---
History of Present Illness H&P Date: 09/10/23 Chief Complaint: Left chest pain with palpation History and Physical and Discharge Summary: This is a 43-year-old female with past medical history significant for seizure disorder, CVA, hypertension, migraines, anxiety, panic disorder, PTSD, former nicotine dependence and multiple other medical issues presented to the ER with complaints of chest pain. States it actually has been fluctuating for months, worsened over the last 2 days. Reports she had been working at the [employer] which required significant amount of lifting, later resulting in left-sided chest pain radiating up the left side of her neck and into her left shoulder. Reports it as "waves of pain". Pressing intercostal intensifies the pain with deep inspiration aggravating it more. D-dimer normal, 0.41. Chest x-ray reported nonacute. Afebrile, normal WBC, hemoglobin 11.2, platelets 329, electrolytes within normal limits, renal function stable .troponins negative x 3. evaluated by cardiology, EKG reviewed. Denies lightheadedness, dizziness or focal deficits. Denies nausea, vomiting or abdominal pain. Denies cough, congestion or shortness of breath. Review of Systems ROS Statement: Those systems with pertinent positive or pertinent negative responses have been documented in the HPI. ROS Other: All systems not noted in ROS Statement are negative. Past Medical History Past Medical History: Blood Disorder, Cancer, CVA/TIA, GERD/Reflux, GI Bleed, Hypertension, Musculoskeletal Disorder, Seizure Disorder Additional Past Medical History / Comment(s): Hx occ arrythmia, heart murmur, migraines, IBS, IBD, kidney stones, factor V; blood clot posterior shoulder 1998; cervical cancer. CVA 2007, Rt side sl weaker. Epilesy, has brief daily seizures; last grand mal 2014. Vasculitis, hx aneurysm in brain. 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 ORIF Rt heel, achilles repair. Past Anesthesia/Blood Transfusion Reactions: Previous Problems w/ Anesthesia, Family History of Problems w/ Anesthesia, Postoperative Nausea & Vomiting (PONV) Additional Past Anesthesia/Blood Transfusion Reaction / Comment(s): Panic attacks, disoriented, takes longer to awaken. Mother is the same way. Past Psychological History: Anxiety, Panic Disorder, PTSD Smoking Status: Former smoker, Vaper Past Alcohol Use History: Rare Additional Past Alcohol Use History / Comment(s): Started smoking 2005, up to 1/ ppd, quit 2018; occ vape Past Drug Use History: Marijuana Additional Drug Use History / Comment(s): uses edibles occ - Past Family History Father Additional Family Medical History / Comment(s): LUPUS, FATHERS MOM, AUNT HAD LUPUS Mother Family Medical History: Osteoarthritis (OA), Thyroid Disorder Additional Family Medical History / Comment(s): GOITER, BOARDERLINE DIABETIC,KIDNEY STONE,GALLSTONES Sister(s) Family Medical History: Cancer Additional Family Medical History / Comment(s): breast, cervical cancer Medications and Allergies Home Medications Medication Instructions Recorded Confirmed Type Butalb/APAP/Caff 50-325-40Mg 1 tab PO Q6H PRN 01/17/16 09/09/23 History [Fioricet 50-325-40] Gabapentin [Neurontin] 300 mg PO BID 02/25/21 09/09/23 History levETIRAcetam [Keppra Xr] 1,500 mg PO HS 02/25/21 09/09/23 History oxyCODONE-APAP 10-325MG [Percocet 1 tab PO BID 02/25/21 09/09/23 History 10-325 mg] Amitriptyline HCl [Elavil] 150 mg PO HS 06/16/22 09/09/23 History methocarbamoL [Robaxin-750] 750 mg PO HS 06/16/22 09/09/23 History Brimonidine Tartrate [Alphagan P 1 drop BOTH EYES BID 09/09/23 09/09/23 History 0.2% Ophth Soln] Dicyclomine [Bentyl] 10 mg PO DIRECTED PRN 09/09/23 09/09/23 History Dicyclomine [Bentyl] 20 mg PO DIRECTED PRN 09/09/23 09/09/23 History Ibuprofen/Acetaminophen [Advil 2 tab PO Q8H PRN 09/09/23 09/09/23 History Dual Action 125MG(IBU)-250MG(ACET)] Prednisolone Acetate/Pf 1 drop BOTH EYES Q4H 09/09/23 09/09/23 History [Prednisolone Acet 1% Eye Drop] Rimegepant Sulfate [Nurtec Odt] 75 mg PO Q2D PRN 09/09/23 09/09/23 History methocarbamoL [Robaxin-750] 750 mg PO BID PRN 09/09/23 09/09/23 History oxyCODONE-APAP 10-325MG [Percocet 1 tab PO DAILY PRN 09/09/23 09/09/23 History 10-325 mg] predniSONE 10 mg PO DIRECTED #30 tab 09/10/23 Rx Allergies Allergy/AdvReac Type Severity Reaction Status Date / Time Gadolinium-Containing Allergy body turns Verified 06/16/22 22:44 Contrast Medi red, very hot latex Allergy Rash/Hives Verified 06/16/22 22:44 Penicillins Allergy Unknown Verified 06/16/22 22:44 prochlorperazine Allergy very Verified 06/16/22 22:44 [From Compazine] agitated, disoriented propranolol Allergy Swelling Verified 06/16/22 22:44 rimegepant [From Nurtec ODT] Allergy Rash/Hives Verified 06/16/22 22:44 sumatriptan [From Imitrex] Allergy Itching Verified 06/16/22 22:44 aspirin AdvReac Abdominal Verified 06/16/22 22:44 Pain, [place] naproxen AdvReac Abdominal Verified 06/16/22 22:44 Pain vasoconstricters AdvReac has to Uncoded 06/16/22 22:44 avoid due vasculitis in brain Physical Exam Vitals: Vital Signs Temp Pulse Pulse Resp BP BP BP 09/10/23 07:00 98.0 F 96 20 116/81 09/10/23 02:33 98.7 F 96 16 106/73 09/10/23 02:00 96 09/09/23 22:09 99.3 F 96 18 116/81 09/09/23 20:47 88 18 133/90 09/09/23 17:47 98.8 F 119 H 18 130/89 Pulse Ox 09/10/23 07:00 100 09/10/23 02:33 99 09/10/23 02:00 09/09/23 22:09 99 09/09/23 20:47 99 09/09/23 17:47 97 Intake and Output 09/09/23 09/10/23 09/10/23 22:59 06:59 14:59 Other: Voiding Method Bedside Commode # Voids 0 0 Weight 65.771 kg PHYSICAL EXAM: VITAL SIGNS: [As above] GENERAL: Alert and oriented x 3, sitting up in bed, no acute distress HEENT: Normocephalic, atraumatic conjunctivae normal. eyes normal. NECK: Supple, no JVD. No thyroid enlargement. No LNs CARDIOVASCULAR: S1, S2 regular.No murmur RESPIRATION: Unlabored, equal air entry, essentially clear to auscultation. ABDOMEN: Soft, nontender . No guarding. no masses palpable. No ascites, No hepatosplenomegaly.Bowel sounds heard. LEGS: No edema. no swelling NERVOUS SYSTEM: Cranial N 2-12 grossly normal. Moves all 4 limbs. No focal deficits. Strength and sensation grossly intact. Skin: Warm and dry, no rash Results CBC & Chem 7: 09/10/23 02:40 09/10/23 02:40 Labs: Abnormal Lab Results - Last 24 Hours (Table) 09/09/23 09/10/23 09/10/23 Range/Units 18:08 02:40 02:40 RBC 3.67 L (4.10-5.20) X 10*6/uL Hgb 11.2 L (12.0-15.0) g/dL Hct 35.4 L (37.2-46.3) % MCHC 31.6 L (32.0-37.0) g/dL Chloride 108 H (98-107) mmol/L BUN 5.6 L (9.0-27.0) mg/dL BUN/Creatinine Ratio 8.00 L (12.00-20.00) Ratio Glucose 66 L (74-99) mg/dL Total Bilirubin 0.2 L (0.3-1.2) mg/dL Total Protein 5.7 L (6.2-8.2) g/dL Thrombosis Risk Factor Assmnt - Choose All That Apply Any of the Below Risk Factors Present?: Yes Each Factor Represents 1 point: Age 41-60 years Other Risk Factors: Yes Each Risk Factor Represents 3 Points: History of DVT/PE Other congenital or acquired thrombophilia - If yes, enter type in comment: No Thrombosis Risk Factor Assessment Total Risk Factor Score: 4 Thrombosis Risk Factor Assessment Level: Moderate Risk Assessment and Plan Assessment: Chest pain, troponins negative x 3; left chest intercostal pain, intensified with palpation, suspect costochondritis Migraine headache Generalized anxiety disorder PTSD Seizure disorder Nicotine dependence History of CVA Plan: Continue on current medication resume ,monitoring and symptomatic treatment. Echo pending. Evaluated by cardiology, acute coronary event ruled out, no inpatient cardiac interventions recommended, cleared patient for discharge. Patient will be discharged home today in a stable condition with guarded prognosis. Discharge Medication List Butalb/APAP/Caff 50-325-40Mg [Fioricet 50-325-40] 1 tab PO Q6H PRN 01/17/16 [History] Gabapentin [Neurontin] 300 mg PO BID 02/25/21 [History] levETIRAcetam [Keppra Xr] 1,500 mg PO HS 02/25/21 [History] oxyCODONE-APAP 10-325MG [Percocet 10-325 mg] 1 tab PO BID 02/25/21 [History] Amitriptyline HCl [Elavil] 150 mg PO HS 06/16/22 [History] methocarbamoL [Robaxin-750] 750 mg PO HS 06/16/22 [History] Brimonidine Tartrate [Alphagan P 0.2% Ophth Soln] 1 drop BOTH EYES BID 09/09/23 [History] Dicyclomine [Bentyl] 10 mg PO DIRECTED PRN 09/09/23 [History] Dicyclomine [Bentyl] 20 mg PO DIRECTED PRN 09/09/23 [History] Ibuprofen/Acetaminophen [Advil Dual Action 125MG(IBU)-250MG(ACET)] 2 tab PO Q8H PRN 09/09/23 [History] Prednisolone Acetate/Pf [Prednisolone Acet 1% Eye Drop] 1 drop BOTH EYES Q4H 09/09/23 [History] Rimegepant Sulfate [Nurtec Odt] 75 mg PO Q2D PRN 09/09/23 [History] methocarbamoL [Robaxin-750] 750 mg PO BID PRN 09/09/23 [History] oxyCODONE-APAP 10-325MG [Percocet 10-325 mg] 1 tab PO DAILY PRN 09/09/23 [History] predniSONE 10 mg PO DIRECTED #30 tab 09/10/23 [Rx] The impression and plan of care has been dictated as directed. : I performed a history and examination of this patient, discussed the same with the dictator. I agree with the dictator's note ,documented as a scribe. Any additional findings or plans will be noted.
[2023-09-10] MEDS: MAGNESIUM SULFATE-D5W PMX 1 GM in DEXTROSE/WATER 1 100ML.BAG IVPB ONE (11:27)
--- NOTE | 2023-09-10 11:41 | CA ---
Transthoracic Echo Report Name: Elaine De Souza Age: 43 Gender: F : 1980 Exam Date: 09/10/2023 09:49 Exam Location: [facility] Ht (in): 65 Wt (lb): 145 Ordering Physician: Emory Conner MD Attending/Referring Phys: Sanforizer Alexandra Enrique RDCS Procedure CPT: Indications: Chest Pain Cardiac Hx: Technical Quality: Good Contrast 1: Total Dose (mL): Contrast 2: Total Dose (mL): MEASUREMENTS (Male / Female) Normal Values 2D ECHO LV Diastolic Diameter PLAX 4.3 cm 4.2 - 5.9 / 3.9 - 5.3 cm LV Systolic Diameter PLAX 2.9 cm IVS Diastolic Thickness 0.6 cm 0.6 - 1.0 / 0.6 - 0.9 cm LVPW Diastolic Thickness 0.8 cm 0.6 - 1.0 / 0.6 - 0.9 cm LV Relative Wall Thickness 0.3 RV Internal Dim ED PLAX 2.7 cm LVOT Diameter 2.1 cm Aortic Root Diameter 3.2 cm LV Diastolic Volume MOD BP 98.0 cm??? 67 - 155 / 56 - 104 cm??? LV Systolic Volume MOD BP 32.2 cm??? 22 - 58 / 19 - 49 cm??? LV Ejection Fraction MOD BP 67.1 % >= 55 % LV Cardiac Index MOD BP 3467.8 cm???/min???m??? LV Diastolic Volume MOD 4C 97.0 cm??? LV Systolic Volume MOD 4C 37.6 cm??? LV Ejection Fraction MOD 4C 61.3 % LV Cardiac Index MOD 4C 3133.2 cm???/min???m??? LV Diastolic Length 4C 7.9 cm LV Systolic Length 4C 6.4 cm LV Diastolic Volume MOD 2C 94.4 cm??? LV Systolic Volume MOD 2C 26.3 cm??? LV Ejection Fraction MOD 2C 72.1 % LV Cardiac Index MOD 2C 3588.5 cm???/min???m??? LV Diastolic Length 2C 8.3 cm LV Systolic Length 2C 6.0 cm Ascending Aorta Diameter 3.5 cm DOPPLER AV Peak Velocity 148.7 cm/s AV Peak Gradient 8.8 mmHg AV Mean Velocity 103.0 cm/s AV Mean Gradient 4.8 mmHg AV Velocity Time Integral 26.4 cm LVOT Peak Velocity 117.3 cm/s LVOT Peak Gradient 5.5 mmHg LVOT Velocity Time Integral 20.1 cm LVOT Stroke Volume 66.5 cm??? LVOT Stroke Volume Index 38.5 ml/m??? LVOT Cardiac Index 3503.6 cm???/min???m??? AV Area Cont Eq vti 2.5 cm??? AV Area Cont Eq pk 2.6 cm??? Mitral E Point Velocity 68.8 cm/s Mitral A Point Velocity 46.9 cm/s Mitral E to A Ratio 1.5 MV Deceleration Time 169.5 ms MV E' Velocity 9.9 cm/s Mitral E to MV E' Ratio 6.9 PV Peak Velocity 68.9 cm/s PV Peak Gradient 1.9 mmHg FINDINGS Left Ventricle Left ventricular ejection fraction is estimated at 60-65 %. Left ventricular cavity size normal. Left ventricular wall thickness normal. No obvious regional wall motion abnormalities. Right Ventricle Normal right ventricular size and function. Unable to estimate the right ventricular systolic pressure. Right Atrium Normal right atrial size. Left Atrium Normal left atrial size. Mitral Valve Structurally normal mitral valve. No mitral stenosis, or prolapse. Trace mitral regurgitation Aortic Valve Trileaflet aortic valve. No aortic valve stenosis or regurgitation. Tricuspid Valve Structurally normal tricuspid valve. No tricuspid stenosis. Trace tricuspid regurgitation. Pulmonic Valve Structurally normal pulmonic valve. No pulmonic stenosis. Mild pulmonic regurgitation. Pericardium No pericardial effusion. Aorta Normal size aortic root and proximal ascending aorta. CONCLUSIONS 1. Normal left ventricle size and systolic function 2. No significant valvular abnormality Previewed by: Dr. Howard Chan MD (Electronically Signed) Final Date: 10 September 2023 11:40
[2023-09-11] MEDS ORDERED: PANTOPRAZOLE 40 MG TABLET PO SCH (07:30)
== END 2023-09-10 14:14 | disposition home or self-care (01) ==
LOC: EC 17:42 → 6NMEDSUR 20:01
PROVIDERS: ADMIT Family Medicine; ATTEND Family Medicine
DX: R07.89 Other chest pain (principal); R00.2 Palpitations; Z86.73 Personal history of transient ischemic attack (TIA), and cerebral infarction without residual deficits; I10 Essential (primary) hypertension; G43.909 Migraine, unspecified, not intractable, without status migrainosus; F41.0 Panic disorder [episodic paroxysmal anxiety]; F43.10 Post-traumatic stress disorder, unspecified; K21.9 Gastro-esophageal reflux disease without esophagitis; K58.9 Irritable bowel syndrome, unspecified; G40.909 Epilepsy, unspecified, not intractable, without status epilepticus; Z90.49 Acquired absence of other specified parts of digestive tract; Z90.710 Acquired absence of both cervix and uterus; Z88.6 Allergy status to analgesic agent; Z87.442 Personal history of urinary calculi; Z83.3 Family history of diabetes mellitus; Z80.49 Family history of malignant neoplasm of other genital organs; Z79.899 Other long term (current) drug therapy; Z79.891 Long term (current) use of opiate analgesic; F17.210 Nicotine dependence, cigarettes, uncomplicated; F41.1 Generalized anxiety disorder
CPT/HCPCS: 96361; 96365; 96366 ×2; 96367 ×3; 96372 ×2; 96375; 99285; 36415; 93005; 93306; 85379; 80053 ×2; 83690; 83735; 84484 ×2; 85025 ×2; 85610; 85730; 71046; G0378 ×2; J2270; J1644 ×2; J2405; J1170 ×2; J3475; J0131; J2470

== ENCOUNTER 2024-05-26 07:23 | Day surgery (SDC) | payer OTHER ==
[2024-05-26 08:09] VITALS: TEMP 99.1
[2024-05-26] MEDS: SODIUM CHLORIDE 0.9% 1,000 ML IV SCH (08:20)
[2024-05-26] MEDS: IV FLUID CONTINUATION 1,000 ML IV ONE (08:21)
[2024-05-26 11:02] VITALS: BP 113/84; PULSE 70; RESP 16
--- NOTE | 2024-05-27 17:53 | P.EPPROC ---
- EP Procedure Note Electrophysiology Procedure Note: Diagnosis Recurrent syncope Twelve-lead EKG shows sinus mechanism, significant baseline artifact However in lead II the QT interval appears normal No delta waves Tilt table test per protocol Baseline heart rate 75 beats minute, baseline blood pressure 115/70 mmHg She was tilted upright on maculas 70 degrees per protocol No change in heart rate or blood pressure She reported a variety of symptoms including dizziness blurred vision sleepiness heavy feeling shortness of breath abdominal discomfort heaviness the chest shoulder pain She also stated that she felt she was going to pass out At that time her blood pressure was 127/93 mmHg pulse rate was in the 80s Impression No significant abnormalities noted on twelve-lead EKG Tilt table test showed normal heart rate and blood pressure response with a variety of symptoms including a feeling that she would pass out. This was not accompanied by any change in heart rate blood pressure or arrhythmia
== END 2024-05-26 11:04 | disposition home or self-care (01) ==
LOC: CATHEP 07:23
PROVIDERS: ATTEND Internal Medicine Clinical Cardiac Electrophysiology
DX: R55 Syncope and collapse (principal); E72.12 Methylenetetrahydrofolate reductase deficiency; D68.51 Activated protein C resistance; G40.909 Epilepsy, unspecified, not intractable, without status epilepticus; G90.521 Complex regional pain syndrome I of right lower limb; G89.4 Chronic pain syndrome; G37.9 Demyelinating disease of central nervous system, unspecified; G43.709 Chronic migraine without aura, not intractable, without status migrainosus; F41.9 Anxiety disorder, unspecified; F32.A Depression, unspecified; R41.3 Other amnesia; Z79.899 Other long term (current) drug therapy; Z86.73 Personal history of transient ischemic attack (TIA), and cerebral infarction without residual deficits; Z91.040 Latex allergy status
CPT/HCPCS: 81025; 93660